=== PATIENT | female | born 1955 | race American Indian/Alaskan Native ===

== ENCOUNTER 2016-08-12 17:02 | Inpatient (IN) | payer MEDICAID, MEDICARE, OTHER ==
--- NOTE | 2016-08-12 17:29 | C.PDOC ---
History Of Present Illness 61 y/o female sent to ER by Dr. Olsen for increased SOB and wheezing. Patient reports that on 06/08, symptoms started, and that she saw Dr. Olsen 2 days later. Patient was given inhaler and prescriptions but has not improved. Patient notes chest pain is present only with cough. Otherwise, denies fever, chills, nausea, vomiting, or other associated symptoms. Time Seen by Provider: 08/12/16 17:16 Chief Complaint (Nursing): Chest Pain History Per: Patient History/Exam Limitations: no limitations Onset/Duration Of Symptoms: Days Current Symptoms Are (Timing): Still Present Associated Symptoms: denies: Dyspnea, Diaphoresis Recent travel outside of the [place]: No Past Medical History Reviewed: Historical Data, Nursing Documentation, Vital Signs Vital Signs: Last Vital Signs Temp 98.1 F 08/12/16 17:11 Pulse 104 H 08/12/16 17:11 Resp 18 08/12/16 17:11 BP 138/82 08/12/16 17:11 Pulse Ox 96 08/12/16 19:00 - Medical History PMH: Bronchitis, HTN Family History: States: Unknown Family Hx - Social History Hx Tobacco Use: No Hx Alcohol Use: Yes Hx Substance Use: No - Immunization History Hx Tetanus Toxoid Vaccination: No Hx Influenza Vaccination: No Hx Pneumococcal Vaccination: No Review Of Systems Except As Marked, All Systems Reviewed And Found Negative. Constitutional: Negative for: Fever, Chills Cardiovascular: Negative for: Chest Pain Respiratory: Positive for: Cough, Shortness of Breath, Wheezing Gastrointestinal: Negative for: Nausea, Vomiting Skin: Negative for: Rash Physical Exam - Physical Exam Appears: Non-toxic, No Acute Distress Skin: Warm, Dry Head: Atraumatic, Normacephalic Oral Mucosa: Moist Chest: Symmetrical Cardiovascular: Rhythm Regular Respiratory: No Accessory Muscle Use, No Rales, No Rhonchi, Wheezing (expiratory , bilaterally) Gastrointestinal/Abdominal: Soft, No Tenderness Back: Normal Inspection Extremity: Normal ROM, Capillary Refill (< 2 sec. ) Neurological/Psych: Oriented x3, Normal Speech, Normal Cognition ED Course And Treatment - Laboratory Results Result Diagrams: 08/12/16 17:51 08/12/16 17:51 Lab Interpretation: Normal O2 Sat by Pulse Oximetry: 96 (RA) Pulse Ox Interpretation: Normal - Radiology CXR: Read By Radiologist - Other Rad No standard instances X-Ray: Read By Radiologist Interpretation: FINDINGS: Examination limited by habitus. LUNGS: Subtle increased opacity within the medial right lower lobe may reflect pneumonia. Please note that chest x-ray has limited sensitivity for the detection of pulmonary masses. PLEURA: No significant pleural effusion identified. No definite pneumothorax . CARDIOVASCULAR: Heart size appears within normal limits. OSSEOUS STRUCTURES: Degenerative changes. VISUALIZED UPPER ABDOMEN: Unremarkable. OTHER FINDINGS: None. IMPRESSION: Subtle increased opacity within the medial right lower lobe may reflect pneumonia. Correlate clinically. Progress Note: CxR, bloodwork, urinalysis ordered. Treated with duoneb, solumedrol, and IVFs. Treated with rocephin 1 gm IV and zithromax 500 mg IV Reassessment Condition: Improved Disposition - Disposition Disposition Time: 19:00 Condition: STABLE Instructions: Upper Respiratory Infection (ED) - POA Present On Arrival: None - Clinical Impression Clinical Impression: Upper respiratory infection, Pneumonia - PA / [employer] / Resident Statement MD/DO has reviewed & agrees with the documentation as recorded. - Scribe Statement The provider has reviewed the documentation as recorded by the Scribjodee Crawley All medical record entries made by the Jayne were at my direction and personally dictated by me. I have reviewed the chart and agree that the record accurately reflects my personal performance of the history, physical exam, medical decision making, and the department course for this patient. I have also personally directed, reviewed, and agree with the discharge instructions and disposition. Physician Patient Turnover Patient Signed Over To: David Brower Handoff Comments: pending admission
[2016-08-12] MEDS ORDERED: Sodium Chloride 0.9% 1,000 ML ONE (17:38)
[2016-08-12] MEDS: Albuterol-Ipratrop 3 mg / 0.5 (3 ml) UD IH SCH ×3 (17:50→18:10)
[2016-08-12] MEDS ORDERED: Albuterol-Ipratrop 3 mg / 0.5 (3 ml) UD ONE (17:52)
[2016-08-12] MEDS: Sodium Chloride 0.9% 1,000 ML IV SCH (17:54)
[2016-08-12 17:59] LABS: BASO # 0.1 K/uL (0.0-0.2); BASO % 1.2 % (0.0-2.0); EOS # 0.3 K/uL (0.0-0.7); EOS % 2.9 % (0.0-4.0); HEMATOCRIT 34.8 % (34.0-47.0); LYMPH # 3.8 K/uL (1.0-4.3); LYMPH % 35.7 % (20.0-40.0); MEAN CELL VOLUME 86.2 fL (81.0-99.0); MEAN CORPUSCULAR HEMOGLOBIN 29.2 pg (27.0-31.0); MEAN CORPUSCULAR HGB CONC 33.9 g/dL (33.0-37.0); MEAN PLATELET VOLUME 7.3 fL (7.2-11.7); MONO # 0.9 K/uL (0.0-0.8); RED CELL DISTRIBUTION WIDTH 12.5 % (11.5-14.5); WHITE BLOOD COUNT 10.7 K/uL (4.8-10.8)
[2016-08-12 18:11] LABS: CHLORIDE 98 mmol/L (98-107); SODIUM 140 mmol/L (132-148)
[2016-08-12 18:13] LABS: AST/SGOT 20 U/L (14-36); BILIRUBIN,TOTAL 0.6 mg/dL (0.2-1.3); CARBON DIOXIDE 29 mmol/L (22-30); GFR AFRICAN-AMERICAN > 60
[2016-08-12 18:14] LABS: ALKALINE PHOSPHATASE 64 U/L (38-126); ALT/SGPT 15 U/L (9-52); BLOOD UREA NITROGEN 20 mg/dL (7-17); CALCIUM 8.9 mg/dl (8.6-10.4); GLUCOSE,RANDOM 130 mg/dL (65-105); TOTAL PROTEIN 8.4 g/dL (6.3-8.3)
[2016-08-12] MEDS ORDERED: Potassium Chloride 20 mEq/15 ml LIQ UD PO STA (18:18)
[2016-08-12 18:26] LABS: RBC URINE 20 /hpf (0-3); URINE BACTERIA FEW (<OCC); URINE BILIRUBIN NEGATIVE (NEGATIVE); URINE BLOOD NEGATIVE (NEGATIVE); URINE GLUCOSE (UA) NORMAL (Normal); URINE KETONE TRACE mg/dL (NEGATIVE); URINE LEUKOCYTE ESTERASE 2+ Leu/uL (Negative); URINE PROTEIN 1+ mg/dL (NEGATIVE); URINE UROBILINOGEN NORMAL mg/dL (0.2-1.0); WBC URINE 11 /hpf (0-5)
[2016-08-12 18:34] LABS: URINE COLOR YELLOW (YELLOW)
[2016-08-12 18:48] LABS: ABG ALLEN TEST POS; ARTERIAL BLOOD HGB O2 SAT 94.7 % (95.0-98.0); CARBOXYHEMOGLOBIN 1.3 % (0.5-1.5); DRAW SITE RRA
--- NOTE | 2016-08-12 18:54 | RAD ---
HISTORY: SOB COMPARISON: Chest x-ray performed 06/30/14 TECHNIQUE: Chest PA and lateral FINDINGS: Examination limited by habitus. LUNGS: Subtle increased opacity within the medial right lower lobe may reflect pneumonia. Please note that chest x-ray has limited sensitivity for the detection of pulmonary masses. PLEURA: No significant pleural effusion identified. No definite pneumothorax . CARDIOVASCULAR: Heart size appears within normal limits. OSSEOUS STRUCTURES: Degenerative changes. VISUALIZED UPPER ABDOMEN: Unremarkable. OTHER FINDINGS: None. IMPRESSION: Subtle increased opacity within the medial right lower lobe may reflect pneumonia. Correlate clinically.
[2016-08-12] MEDS ORDERED: cefTRIAXone IV 1 gm in Dextros 50 ML IVPB STA (18:57)
[2016-08-12] MEDS ORDERED: Azithromycin 500mg/250ML NS 250 ML IV SCH (19:00)
[2016-08-12] MEDS ORDERED: Potassium Chloride 20 mEq ER Tab PO ONE (19:38)
[2016-08-12] MEDS ORDERED: cefTRIAXone IV 1 gm in Dextros 50 ML IVPB ONE (19:39)
[2016-08-12] MEDS ORDERED: Potassium Chloride 20 mEq/15 ml LIQ UD ONE (19:41)
[2016-08-12] MEDS ORDERED: Azithromycin 500mg/250ML NS 500 MG/250 ML BAG IV ONE (20:00)
[2016-08-12] MEDS ORDERED: Azithromycin 500mg/250ML NS 500 MG/250 ML BAG IVPB ONE (20:42)
[2016-08-12] MEDS: Azithromycin 500 MG in Sodium Chloride 0.9% 250 ML IVPB SCH (22:29)
[2016-08-12] MEDS: cefTRIAXone IV 1 gm in Dextros 50 ML IVPB SCH (22:29)
[2016-08-13] MEDS: MethylPREDNISolone 40 mg Vial IVP SCH ×4 (00:07→18:41)
[2016-08-13] MEDS: Albuterol-Ipratrop 3 mg / 0.5 (3 ml) UD INH PRN ×2 (01:32→18:05)
[2016-08-13] MEDS: Sodium Chloride 0.9% 1,000 ML IV SCH ×5 (05:29→23:49)
[2016-08-13] MEDS ORDERED: MethylPREDNISolone 40 mg Vial IVP SCH (06:00)
[2016-08-13 09:14] LABS: LYMPH # 1.6 K/uL (1.0-4.3); LYMPH % 19.7 % (20.0-40.0); MEAN CELL VOLUME 86.5 fL (81.0-99.0); MEAN CORPUSCULAR HEMOGLOBIN 29.6 pg (27.0-31.0); MEAN CORPUSCULAR HGB CONC 34.2 g/dL (33.0-37.0); MEAN PLATELET VOLUME 7.4 fL (7.2-11.7); MONO # 0.1 K/uL (0.0-0.8); MONO % 1.3 % (0.0-10.0); RED CELL DISTRIBUTION WIDTH 12.4 % (11.5-14.5); WHITE BLOOD COUNT 8.1 K/uL (4.8-10.8)
[2016-08-13 09:16] LABS: CHLORIDE 102 mmol/L (98-107); POTASSIUM 3.5 mmol/L (3.6-5.2); SODIUM 139 mmol/L (132-148)
[2016-08-13 09:19] LABS: ALKALINE PHOSPHATASE 64 U/L (38-126); ALT/SGPT 15 U/L (9-52); AST/SGOT 20 U/L (14-36); BILIRUBIN,TOTAL 0.5 mg/dL (0.2-1.3); BLOOD UREA NITROGEN 17 mg/dL (7-17); CALCIUM 8.7 mg/dl (8.6-10.4); CARBON DIOXIDE 22 mmol/L (22-30); GFR AFRICAN-AMERICAN > 60; GLUCOSE,RANDOM 141 mg/dL (65-105); TOTAL PROTEIN 8.1 g/dL (6.3-8.3)
[2016-08-13] MEDS: cefTRIAXone IV 1 gm in Dextros 50 ML IVPB SCH ×2 (09:35→21:35)
[2016-08-13] MEDS: Enoxaparin 30 mg Syringe SC SCH (09:35)
--- NOTE | 2016-08-13 11:16 | CP.PCM.HP ---
History of Present Illness - History of Present Illness History of Present Illness: Patient started to cough about 1 week ago and was given Amoxicillin but her cough became worst and started to have difficulty breathing, she went to the ER and was admitted. Apparently her chest X-ray showed Pneumonia. Present on Admission - Present on Admission Any Indicators Present on Admission: No Review of Systems - Review of Systems Systems not reviewed;Unavailable: Respiratory Distress - Respiratory Respiratory: Cough, Dyspnea, Chest Congestion, Excessive Mucous Production - Reproductive: Female Reproductive:Female: Menopausal - Menstruation Menstruation: Menopausal Past Patient History - Tetanus Immunizations Tetanus Immunization: Unknown - Past Medical History & Family History Past Medical History?: No - Past Social History Smoking Status: Never Smoked Alcohol: Social Drugs: Denies Home Situation {Lives}: With Family - CARDIAC Hx Cardiac Disorders: No Hx Hypertension: Yes - PULMONARY Hx Respiratory Disorders: Yes Hx Bronchitis: Yes - NEUROLOGICAL Hx Neurological Disorder: No - HEENT Hx HEENT Problems: No - RENAL Hx Chronic Kidney Disease: No - ENDOCRINE/METABOLIC Hx Endocrine Disorders: No - HEMATOLOGICAL/ONCOLOGICAL Hx Blood Disorders: No Hx Blood Transfusions: No Hx Blood Transfusion Reaction: No - INTEGUMENTARY Hx Dermatological Problems: No - MUSCULOSKELETAL/RHEUMATOLOGICAL Hx Falls: No Hx Fractures: Yes - GASTROINTESTINAL Hx Gastrointestinal Disorders: No - GENITOURINARY/GYNECOLOGICAL Hx Genitourinary Disorders: No - PSYCHIATRIC Hx Anxiety: No Hx Substance Use: No - SURGICAL HISTORY Hx Surgeries: Yes Hx Breast Biopsy: Yes (2010) Hx Orthopedic Surgery: Yes (Rt ankle repair) Other/Comment: rt.ankle repair/rt.arm repair w/plate - ANESTHESIA Hx Anesthesia: Yes Hx Anesthesia Reactions: No Hx Malignant Hyperthermia: No Meds Allergies/Adverse Reactions: Allergies Allergy/AdvReac Type Severity Reaction Status Date / Time apple Allergy RASH Verified 08/12/16 20:55 cetirizine [From Zyrtec] Allergy RASH Verified 08/12/16 20:55 grape Allergy RASH Verified 08/12/16 20:55 grapefruit Allergy RASH Verified 08/12/16 20:55 moxifloxacin [From Avelox] Allergy RASH Verified 08/12/16 20:55 pear Allergy RASH Verified 08/12/16 20:55 Mushrooms Allergy Severe ANAPHYLAXIS Uncoded 08/12/16 20:55 pickles Allergy RASH Uncoded 08/12/16 20:55 Physical Exam - Constitutional Appears: In Acute Distress - Head Exam Head Exam: ATRAUMATIC, NORMAL INSPECTION, NORMOCEPHALIC - Eye Exam Pupil Exam: NORMAL ACCOMODATION, PERRL - ENT Exam ENT Exam: Mucous Membranes Moist - Neck Exam Neck exam: Positive for: Full Rom - Respiratory Exam Respiratory Exam: Decreased Breath Sounds, Prolonged Expiratory Phase, Rhonchi, Respiratory Distress - Cardiovascular Exam Cardiovascular Exam: REGULAR RHYTHM, +S1, +S2 - GI/Abdominal Exam GI & Abdominal Exam: Normal Bowel Sounds, Soft - Rectal Exam Rectal Exam: Deferred - Extremities Exam Extremities exam: Positive for: full ROM, normal inspection - Neurological Exam Neurological exam: Alert, CN II-XII Intact, Oriented x3, Reflexes Normal - Psychiatric Exam Psychiatric exam: Normal Affect - Skin Skin Exam: Dry, Intact, Normal Color Results - Vital Signs Recent Vital Signs: Last Vital Signs Temp 97.5 F L 08/13/16 08:00 Pulse 93 H 08/13/16 08:00 Resp 20 08/13/16 08:00 BP 171/79 H 08/13/16 08:00 Pulse Ox 98 08/13/16 08:00 - Labs Result Diagrams: 08/13/16 08:57 08/13/16 08:57 Labs: Laboratory Results - last 24 hr 08/13/16 08/13/16 08:57 08:57 WBC 8.1 RBC 3.70 L Hgb 10.9 L Hct 32.0 L MCV 86.5 MCH 29.6 MCHC 34.2 RDW 12.4 Plt Count 311 MPV 7.4 Neut % (Auto) 79.0 H Lymph % (Auto) 19.7 L [place] % (Auto) 1.3 Eos % (Auto) 0.0 Baso % (Auto) 0.0 Neut # 6.4 Lymph # 1.6 [place] # 0.1 Eos # 0.0 Baso # 0.0 Sodium 139 Potassium 3.5 L Chloride 102 Carbon Dioxide 22 Anion Gap 18 BUN 17 Creatinine 0.7 Est GFR ( Amer) > 60 Est GFR (Non-Af Amer) > 60 Random Glucose 141 H Calcium 8.7 Total Bilirubin 0.5 AST 20 ALT 15 Alkaline Phosphatase 64 Total Protein 8.1 Albumin 4.0 Globulin 4.1 H Albumin/Globulin Ratio 1.0 Assessment & Plan (1) Pneumonia Status: Acute (2) Bronchitis Status: Acute (3) Hypertension Status: Chronic - Assessment and Plan (Free Text) Plan: Plan: Continue IV Rocephin and Azithromycin. Continue Nebilizer with Duoneb. Continue IV Solumedrol. Oxygen. - Date & Time Date: 08/13/16 Time: 11:30
[2016-08-13] MEDS: Azithromycin 500 MG in Sodium Chloride 0.9% 250 ML IVPB SCH (13:33)
[2016-08-13] MEDS: Patient's Own Medication - Tablet/Capusle PO SCH (16:51)
[2016-08-13] MEDS ORDERED: Albuterol-Ipratrop 3 mg / 0.5 (3 ml) UD INH SCH (18:30)
[2016-08-14] MEDS: MethylPREDNISolone 40 mg Vial IVP SCH ×5 (00:13→23:47)
[2016-08-14] MEDS: Albuterol-Ipratrop 3 mg / 0.5 (3 ml) UD INH SCH ×6 (00:37→19:40)
[2016-08-14] MEDS: Sodium Chloride 0.9% 1,000 ML IV SCH ×4 (05:36→23:34)
[2016-08-14] MEDS: Patient's Own Medication - Tablet/Capusle PO SCH (05:38)
[2016-08-14] MEDS: Enoxaparin 30 mg Syringe SC SCH (09:36)
[2016-08-14] MEDS: cefTRIAXone IV 1 gm in Dextros 50 ML IVPB SCH ×2 (10:47→21:52)
--- NOTE | 2016-08-14 11:20 | CP.PCM.PN ---
Subjective - Date & Time of Evaluation Date of Evaluation: 08/14/16 Time of Evaluation: 11:20 - Subjective Subjective: patient is excessively cough. Nebulizer has to be given q 4 hours last night. Afebrile. On Iv Azithromycin and Rocephin. On Iv Solumedrol . Objective - Vital Signs/Intake and Output Vital Signs (last 24 hours): Temp Pulse Resp BP Pulse Ox 98.2 F 84 20 167/87 H 95 08/14/16 07:52 08/14/16 07:52 08/14/16 07:52 08/14/16 07:52 08/14/16 07:52 Intake and Output: 08/14/16 08/14/16 06:59 18:59 Intake Total 1200 1040 Balance 1200 1040 - Medications Medications: Current Medications Albuterol/Ipratropium (Duoneb 3 Mg/0.5 Mg (3 Ml) Ud) 3 ml INH RQ4 [facility] Last Admin: 08/14/16 07:47 Dose: 3 ml Enoxaparin Sodium (Lovenox) 30 mg SC DAILY [facility] Last Admin: 08/14/16 09:36 Dose: Not Given Home Med (Patient's Own Medication) 1 tab PO 0600 [facility] Last Admin: 08/14/16 05:38 Dose: 1 tab Sodium Chloride (Sodium Chloride 0.9%) 1,000 mls @ 100 mls/hr IV .Q10H [facility] Last Admin: 08/14/16 05:36 Dose: 100 mls/hr Ceftriaxone Sodium (Rocephin Iv 1 Gm Duplex) 50 mls @ 100 mls/hr IVPB Q12 [facility] Last Admin: 08/14/16 10:47 Dose: 100 mls/hr Azithromycin 500 mg/ Sodium (Chloride) 250 mls @ 250 mls/hr IVPB Q24H [facility] Methylprednisolone (Solu-Medrol) 40 mg IVP Q6 [facility] Last Admin: 08/14/16 05:33 Dose: 40 mg Pneumococcal Polyvalent Vaccine (Pneumovax 23 Vaccine) 0.5 ml IM .ONCE ONE Stop: 08/15/16 10:01 - Labs Labs: 08/13/16 08:57 08/13/16 08:57 - Constitutional Appears: In Acute Distress - Eye Exam Pupil Exam: NORMAL ACCOMODATION, PERRL - ENT Exam ENT Exam: Mucous Membranes Moist - Respiratory Exam Respiratory Exam: Decreased Breath Sounds, Rhonchi - Cardiovascular Exam Cardiovascular Exam: REGULAR RHYTHM, +S1, +S2 - GI/Abdominal Exam GI & Abdominal Exam: Soft, Normal Bowel Sounds - Rectal Exam Rectal Exam: Deferred - Extremities Exam Extremities Exam: Full ROM - Neurological Exam Neurological Exam: Alert, Awake, Oriented x3 - Psychiatric Exam Psychiatric exam: Normal Affect, Normal Mood - Skin Skin Exam: Dry, Intact, Normal Color, Warm Assessment and Plan (1) Pneumonia Status: Acute (2) Bronchitis Status: Acute (3) Hypertension Status: Chronic - Assessment and Plan (Free Text) Plan: Plan: Continue IV Rocephin and Azithromycin Continue IV solumedrol. Nebulizer with douneb q 4 hours.
[2016-08-14] MEDS: Azithromycin 500 MG in Sodium Chloride 0.9% 250 ML IVPB SCH (12:59)
--- NOTE | 2016-08-14 14:20 | RAD ---
HISTORY: Pneumonia. COMPARISON: Comparison made with prior radiographs chest 08/12/2016 TECHNIQUE: Chest PA and lateral FINDINGS: LUNGS: Suspected infiltrate right mid to lower lung lamar improved. There may be some residual bibasilar atelectasis and or scarring right greater than left. . PLEURA: No significant pleural effusion identified. No pneumothorax apparent. CARDIOVASCULAR: Heart size is upper limits of normal/ borderline enlarged. OSSEOUS STRUCTURES: No significant abnormalities. VISUALIZED UPPER ABDOMEN: Normal. OTHER FINDINGS: None. IMPRESSION: Suspected infiltrate right mid to lower lung lamar improved. There may be some residual bibasilar atelectasis or scarring right greater than left.
[2016-08-14] MEDS ORDERED: Patient's Own Medication - Tablet/Capusle PO SCH (18:00)
[2016-08-15] MEDS: Albuterol-Ipratrop 3 mg / 0.5 (3 ml) UD INH SCH ×8 (01:06→23:31)
[2016-08-15] MEDS: MethylPREDNISolone 40 mg Vial IVP SCH ×3 (06:13→17:38)
[2016-08-15] MEDS: Sodium Chloride 0.9% 1,000 ML IV SCH (06:16)
[2016-08-15] MEDS: Patient's Own Medication - Tablet/Capusle PO SCH ×2 (06:16→17:38)
[2016-08-15 07:32] LABS: CHLORIDE 99 mmol/L (98-107); POTASSIUM 3.6 mmol/L (3.6-5.2); SODIUM 137 mmol/L (132-148)
[2016-08-15 07:35] LABS: BLOOD UREA NITROGEN 17 mg/dL (7-17); CARBON DIOXIDE 27 mmol/L (22-30); GFR AFRICAN-AMERICAN > 60; GLUCOSE,RANDOM 138 mg/dL (65-105)
[2016-08-15 07:36] LABS: CALCIUM 8.5 mg/dl (8.6-10.4)
--- NOTE | 2016-08-15 07:54 | CP.PCM.PN ---
Subjective - Date & Time of Evaluation Date of Evaluation: 08/15/16 Time of Evaluation: 07:45 - Subjective Subjective: Cough slightly better. Afebrile. Sob is better.Still on IV Solu Objective - Vital Signs/Intake and Output Vital Signs (last 24 hours): Temp Pulse Resp BP Pulse Ox 98.2 F 69 20 167/82 H 94 L 08/15/16 00:00 08/15/16 06:00 08/15/16 00:00 08/15/16 06:00 08/15/16 00:00 Intake and Output: 08/15/16 08/15/16 06:59 18:59 Intake Total 1989 Balance 1989 - Medications Medications: Current Medications Albuterol/Ipratropium (Duoneb 3 Mg/0.5 Mg (3 Ml) Ud) 3 ml INH RQ4 [facility] Last Admin: 08/15/16 03:58 Dose: 3 ml Enoxaparin Sodium (Lovenox) 30 mg SC DAILY [facility] Last Admin: 08/14/16 09:36 Dose: Not Given Home Med (Patient's Own Medication) 1 tab PO Q12H [facility] Last Admin: 08/15/16 06:16 Dose: 1 tab Sodium Chloride (Sodium Chloride 0.9%) 1,000 mls @ 100 mls/hr IV .Q10H [facility] Last Admin: 08/15/16 06:16 Dose: Not Given Ceftriaxone Sodium (Rocephin Iv 1 Gm Duplex) 50 mls @ 100 mls/hr IVPB Q12 [facility] Last Admin: 08/14/16 21:52 Dose: 100 mls/hr Azithromycin 500 mg/ Sodium (Chloride) 250 mls @ 250 mls/hr IVPB Q24H [facility] Last Admin: 08/14/16 12:59 Dose: 250 mls/hr Methylprednisolone (Solu-Medrol) 40 mg IVP Q6 [facility] Last Admin: 08/15/16 06:13 Dose: 40 mg Pneumococcal Polyvalent Vaccine (Pneumovax 23 Vaccine) 0.5 ml IM .ONCE ONE Stop: 08/15/16 10:01 - Labs Labs: 08/13/16 08:57 08/15/16 07:00 - Respiratory Exam Respiratory Exam: Rhonchi, Wheezes, NORMAL BREATHING PATTERN - Cardiovascular Exam Cardiovascular Exam: REGULAR RHYTHM, +S1, +S2 Assessment and Plan (1) Pneumonia Status: Acute (2) Bronchitis Status: Acute (3) Hypertension Status: Chronic - Assessment and Plan (Free Text) Plan: Plan: Continue IV Azithromycin and Rocephin. Start decreasing IV Sokumedrol. Diovan po BID
[2016-08-15] MEDS: Enoxaparin 30 mg Syringe SC SCH (09:21)
[2016-08-15] MEDS ORDERED: Pneumococcal 23-Valent Vaccine IM ONE ×2 (10:00→11:30)
[2016-08-15] MEDS: cefTRIAXone IV 1 gm in Dextros 50 ML IVPB SCH ×2 (12:15→21:07)
[2016-08-15] MEDS: Azithromycin 500 MG in Sodium Chloride 0.9% 250 ML IVPB SCH (13:27)
[2016-08-16] MEDS: MethylPREDNISolone 40 mg Vial IVP SCH ×4 (00:23→17:52)
[2016-08-16] MEDS: Albuterol-Ipratrop 3 mg / 0.5 (3 ml) UD INH SCH ×6 (03:07→23:37)
[2016-08-16] MEDS: Patient's Own Medication - Tablet/Capusle PO SCH ×2 (05:48→17:56)
[2016-08-16] MEDS: cefTRIAXone IV 1 gm in Dextros 50 ML IVPB SCH ×2 (10:10→23:00)
[2016-08-16] MEDS: Enoxaparin 30 mg Syringe SC SCH (10:14)
[2016-08-16] MEDS: [UNRECOGNIZED DRUG - OTHER] PO SCH (10:14)
[2016-08-16] MEDS: MULTIVITAMIN PO SCH (10:14)
[2016-08-16] MEDS: Azithromycin 500 MG in Sodium Chloride 0.9% 250 ML IVPB SCH (12:03)
--- NOTE | 2016-08-16 14:06 | CP.PCM.PN ---
Subjective - Date & Time of Evaluation Date of Evaluation: 08/16/16 Time of Evaluation: 02:00 - Subjective Subjective: Patient apparently had a rough night. The nurse called earlier and told me that somebody cleaned the next bed with chlorox and started to heve a bad coughing spell again she had to be given a treatment. Since then p[atient again haveve been coughing excessively again with respiratory difficulty.again. Objective - Vital Signs/Intake and Output Vital Signs (last 24 hours): Temp Pulse Resp BP Pulse Ox 97.5 F L 100 H 20 171/73 H 97 08/16/16 08:00 08/16/16 08:00 08/16/16 08:00 08/16/16 08:00 08/16/16 08:00 Intake and Output: 08/16/16 08/16/16 06:59 18:59 Intake Total 810 Balance 810 - Medications Medications: Current Medications Albuterol/Ipratropium (Duoneb 3 Mg/0.5 Mg (3 Ml) Ud) 3 ml INH RQ4 [facility] Last Admin: 08/16/16 03:07 Dose: 3 ml Enoxaparin Sodium (Lovenox) 30 mg SC DAILY [facility] Last Admin: 08/16/16 10:14 Dose: Not Given Home Med (Patient's Own Medication) 1 tab PO Q12H [facility] Last Admin: 08/16/16 05:48 Dose: 1 tab Home Med (Patient's Own Medication) 1 tab PO DAILY [facility] Last Admin: 08/16/16 10:14 Dose: 1 tab Ceftriaxone Sodium (Rocephin Iv 1 Gm Duplex) 50 mls @ 100 mls/hr IVPB Q12 [facility] Last Admin: 08/16/16 10:10 Dose: 100 mls/hr Azithromycin 500 mg/ Sodium (Chloride) 250 mls @ 250 mls/hr IVPB Q24H [facility] Last Admin: 08/16/16 12:03 Dose: 250 mls/hr Methylprednisolone (Solu-Medrol) 20 mg IVP Q6H [facility] Last Admin: 08/16/16 12:04 Dose: 20 mg Fluticasone/Salmeterol (Advair Diskus 250/50) 1 puff INH RQ12 [facility] - Labs Labs: 08/13/16 08:57 08/15/16 07:00 - Head Exam Head Exam: ATRAUMATIC, NORMAL INSPECTION - Eye Exam Pupil Exam: NORMAL ACCOMODATION, PERRL - ENT Exam ENT Exam: Normal External Ear Exam - Neck Exam Neck Exam: Full ROM - Respiratory Exam Respiratory Exam: Decreased Breath Sounds, Rhonchi, Respiratory Distress - Cardiovascular Exam Cardiovascular Exam: REGULAR RHYTHM, +S1, +S2 - GI/Abdominal Exam GI & Abdominal Exam: Normal Bowel Sounds - Rectal Exam Rectal Exam: Deferred - Extremities Exam Extremities Exam: Normal Inspection - Back Exam Back Exam: NORMAL INSPECTION - Neurological Exam Neurological Exam: Alert, Awake, Oriented x3 - Psychiatric Exam Psychiatric exam: Anxious, Normal Affect, Normal Mood - Skin Skin Exam: Dry, Intact, Normal Color Assessment and Plan (1) Pneumonia Status: Acute (2) Bronchitis Status: Acute (3) Hypertension Status: Chronic - Assessment and Plan (Free Text) Plan: Plan: Continue IV Rocerphin and Azithromycin. Continue present dose of Solumedrol. Continue respiratory treatment. Sytart on Advair 250/50 1 puff 2x daily.
[2016-08-16] MEDS: guaiFENesin 200 mg/10 ml Syrup UD PO SCH ×3 (15:02→23:00)
[2016-08-16] MEDS: Fluticasone-Salmeterol 250-50mcg Diskus INH SCH (21:01)
[2016-08-17] MEDS: MethylPREDNISolone 40 mg Vial IVP SCH ×4 (00:25→17:38)
[2016-08-17] MEDS: Albuterol-Ipratrop 3 mg / 0.5 (3 ml) UD INH SCH ×6 (03:05→23:44)
[2016-08-17] MEDS: Patient's Own Medication - Tablet/Capusle PO SCH ×2 (05:58→17:43)
[2016-08-17] MEDS: Fluticasone-Salmeterol 250-50mcg Diskus INH SCH ×2 (10:03→19:46)
[2016-08-17] MEDS: MULTIVITAMIN PO SCH (10:07)
[2016-08-17] MEDS: [UNRECOGNIZED DRUG - OTHER] PO SCH (10:07)
[2016-08-17] MEDS: cefTRIAXone IV 1 gm in Dextros 50 ML IVPB SCH ×2 (10:07→21:48)
[2016-08-17] MEDS: guaiFENesin 200 mg/10 ml Syrup UD PO SCH ×4 (10:08→21:48)
[2016-08-17] MEDS: Enoxaparin 30 mg Syringe SC SCH (10:10)
--- NOTE | 2016-08-17 12:22 | CP.PCM.PN ---
Subjective - Date & Time of Evaluation Date of Evaluation: 08/17/16 Time of Evaluation: 12:10 - Subjective Subjective: Afebrile, but still coughing a lot . Started on Advair, yesterday. Still on IV Solumedrola Iv Rocephin, and Azithromycin. On respiratory treatment with Duoneb.Chest x-ray 2 days ago no pneumonia. Objective - Vital Signs/Intake and Output Vital Signs (last 24 hours): Temp Pulse Resp BP Pulse Ox 97.6 F 73 20 153/84 H 94 L 08/17/16 00:00 08/17/16 00:00 08/17/16 00:00 08/17/16 00:00 08/17/16 00:00 Intake and Output: 08/17/16 08/17/16 06:59 18:59 Intake Total 350 Balance 350 - Medications Medications: Current Medications Albuterol/Ipratropium (Duoneb 3 Mg/0.5 Mg (3 Ml) Ud) 3 ml INH RQ4 [facility] Last Admin: 08/17/16 11:20 Dose: 3 ml Enoxaparin Sodium (Lovenox) 30 mg SC DAILY [facility] Last Admin: 08/17/16 10:10 Dose: Not Given Guaifenesin (Robitussin) 200 mg PO QID [facility] Last Admin: 08/17/16 10:08 Dose: 200 mg Home Med (Patient's Own Medication) 1 tab PO Q12H [facility] Last Admin: 08/17/16 05:58 Dose: 1 tab Home Med (Patient's Own Medication) 1 tab PO DAILY [facility] Last Admin: 08/17/16 10:07 Dose: 1 tab Ceftriaxone Sodium (Rocephin Iv 1 Gm Duplex) 50 mls @ 100 mls/hr IVPB Q12 [facility] Last Admin: 08/17/16 10:07 Dose: 100 mls/hr Azithromycin 500 mg/ Sodium (Chloride) 250 mls @ 250 mls/hr IVPB Q24H [facility] Last Admin: 08/16/16 12:03 Dose: 250 mls/hr Methylprednisolone (Solu-Medrol) 20 mg IVP Q6H [facility] Last Admin: 08/17/16 05:50 Dose: 20 mg Fluticasone/Salmeterol (Advair Diskus 250/50) 1 puff INH RQ12 [facility] Last Admin: 08/17/16 10:03 Dose: 1 puff - Labs Labs: 08/13/16 08:57 08/15/16 07:00 - Respiratory Exam Respiratory Exam: Decreased Breath Sounds, Prolonged Expiratory Phase, Rhonchi - Cardiovascular Exam Cardiovascular Exam: REGULAR RHYTHM, +S1, +S2 - Rectal Exam Rectal Exam: Deferred - Extremities Exam Extremities Exam: Full ROM - Neurological Exam Neurological Exam: Alert, Awake, Oriented x3 - Psychiatric Exam Psychiatric exam: Normal Affect, Normal Mood - Skin Skin Exam: Dry, Intact, Normal Color, Warm Assessment and Plan (1) Pneumonia Status: Resolved (2) Bronchitis Status: Acute (3) Hypertension Status: Chronic - Assessment and Plan (Free Text) Plan: Plan: Continue IV Azithromycia, and Rocephin. Continue Nebulizer with Douneb q 4 hours. Continue IV Solumedrol. Continue Advair BID. Continue Diovan BID.
[2016-08-17] MEDS: Azithromycin 500 MG in Sodium Chloride 0.9% 250 ML IVPB SCH (13:05)
[2016-08-18] MEDS: MethylPREDNISolone 40 mg Vial IVP SCH ×5 (00:16→22:30)
[2016-08-18] MEDS: Albuterol-Ipratrop 3 mg / 0.5 (3 ml) UD INH SCH ×6 (03:10→23:50)
[2016-08-18] MEDS: Patient's Own Medication - Tablet/Capusle PO SCH ×2 (05:44→18:30)
[2016-08-18] MEDS: Enoxaparin 30 mg Syringe SC SCH (09:29)
[2016-08-18] MEDS: MULTIVITAMIN PO SCH (09:35)
[2016-08-18] MEDS: [UNRECOGNIZED DRUG - OTHER] PO SCH (09:35)
[2016-08-18] MEDS: Fluticasone-Salmeterol 250-50mcg Diskus INH SCH (10:28)
[2016-08-18] MEDS: guaiFENesin 200 mg/10 ml Syrup UD PO SCH (10:30)
--- NOTE | 2016-08-18 10:52 | CP.PCM.PN ---
Subjective - Date & Time of Evaluation Date of Evaluation: 08/18/16 Time of Evaluation: 10:50 - Subjective Subjective: patient still coughing quite a bit. Could no finish a sentence without stopping to cough. Still on iv antibiotics, solumedrol Advair and Douneb. Objective - Vital Signs/Intake and Output Vital Signs (last 24 hours): Temp Pulse Resp BP Pulse Ox 98.8 F 110 H 20 144/73 97 08/18/16 08:00 08/18/16 08:00 08/18/16 08:00 08/18/16 08:00 08/18/16 08:00 Intake and Output: 08/18/16 08/18/16 06:59 18:59 Intake Total 750 600 Balance 750 600 - Medications Medications: Current Medications Albuterol/Ipratropium (Duoneb 3 Mg/0.5 Mg (3 Ml) Ud) 3 ml INH RQ4 [facility] Last Admin: 08/18/16 07:53 Dose: 3 ml Enoxaparin Sodium (Lovenox) 30 mg SC DAILY [facility] Last Admin: 08/18/16 09:29 Dose: Not Given Guaifenesin (Robitussin) 200 mg PO QID [facility] Last Admin: 08/17/16 21:48 Dose: 200 mg Home Med (Patient's Own Medication) 1 tab PO Q12H [facility] Last Admin: 08/18/16 05:44 Dose: 1 tab Home Med (Patient's Own Medication) 1 tab PO DAILY [facility] Last Admin: 08/18/16 09:35 Dose: 1 tab Azithromycin 500 mg/ Sodium (Chloride) 250 mls @ 250 mls/hr IVPB Q24H [facility] Last Admin: 08/17/16 13:05 Dose: 250 mls/hr Methylprednisolone (Solu-Medrol) 20 mg IVP Q6H [facility] Last Admin: 08/18/16 05:45 Dose: 20 mg Fluticasone/Salmeterol (Advair Diskus 250/50) 1 puff INH RQ12 [facility] Last Admin: 08/18/16 10:28 Dose: 1 puff - Labs Labs: 08/13/16 08:57 08/15/16 07:00 - Respiratory Exam Respiratory Exam: Decreased Breath Sounds, Rhonchi - Cardiovascular Exam Cardiovascular Exam: REGULAR RHYTHM, +S1, +S2 - GI/Abdominal Exam GI & Abdominal Exam: Soft - Rectal Exam Rectal Exam: Deferred - Back Exam Back Exam: NORMAL INSPECTION - Neurological Exam Neurological Exam: Alert, Awake, Oriented x3 - Psychiatric Exam Psychiatric exam: Normal Affect, Normal Mood - Skin Skin Exam: Dry, Intact, Normal Color, Warm Assessment and Plan (1) Pneumonia Status: Resolved (2) Bronchitis Status: Acute (3) Hypertension Status: Chronic - Assessment and Plan (Free Text) Plan: Plan: To continue IV Rocephin, and Azithromycin Continue IV Solumedrol. Continue nebulizewr with Douneb and Advair. Dr. Ramandeep Funez on consult.
[2016-08-18] MEDS ORDERED: Promethazine DM 6.25 mg-15 mg/5 ml Syrup PO SCH (11:15)
[2016-08-18] MEDS: Promethazine/Cod 6.25mg-10mg/5ml Syr UD PO SCH ×3 (12:02→22:30)
[2016-08-18] MEDS: Azithromycin 500 MG in Sodium Chloride 0.9% 250 ML IVPB SCH (12:06)
--- NOTE | 2016-08-18 14:57 | RAD ---
PROCEDURE: Skull series dated 08/17/2016 HISTORY: patient states she bumped her head prior to admiss COMPARISON: No prior study available for comparison TECHNIQUE: Four views of the skull performed FINDINGS: Current study reveals no evidence of acute displaced or depressed skull fractures. If symptoms persist or occult fracture or parenchymal brain injury suspected clinically recommend followup CT scan of the brain which very sensitive for assessing skull fractures and brain injury. . The paranasal and mastoid air complexes appear well-developed and well-aerated. IMPRESSION: No fracture seen. Followup CT scan could be performed if further evaluation is required as detailed above
--- NOTE | 2016-08-18 16:10 | CP.PCM.CON ---
History of Present Illness - History of Present Illness History of Present Illness: Reason for consultation cough and shortness of breath: 61-year-old female with no significant past medical history presented to emergency room complaining of cough for the past 1 week. Cough mostly dry and sometimes productive BROWNISH phlegm. Cough also associated with wheezing and shortness of breath. Patient was initially treated as outpatient with amoxicillin without relief. Initial chest x-ray done in the emergency room consistent with pneumonia and was started on IV antibiotics, steroids and antitussives without any relief. Cough is producing the day and at night and is associated with chest discomfort. Denies heartburn or indigestion. Denies nasal congestion or postnasal drip. Review of Systems - Review of Systems All systems: reviewed and no additional remarkable complaints except (Shortness of breath and cough) Past Patient History - Tetanus Immunizations Tetanus Immunization: Unknown - Past Medical History & Family History Past Medical History?: No - Past Social History Smoking Status: Never Smoked Alcohol: Social Drugs: Denies Home Situation {Lives}: With Family - CARDIAC Hx Cardiac Disorders: No Hx Hypertension: Yes - PULMONARY Hx Respiratory Disorders: Yes Hx Bronchitis: Yes - NEUROLOGICAL Hx Neurological Disorder: No - HEENT Hx HEENT Problems: No - RENAL Hx Chronic Kidney Disease: No - ENDOCRINE/METABOLIC Hx Endocrine Disorders: No - HEMATOLOGICAL/ONCOLOGICAL Hx Blood Disorders: No Hx Blood Transfusions: No Hx Blood Transfusion Reaction: No - INTEGUMENTARY Hx Dermatological Problems: No - MUSCULOSKELETAL/RHEUMATOLOGICAL Hx Falls: No Hx Fractures: Yes - GASTROINTESTINAL Hx Gastrointestinal Disorders: No - GENITOURINARY/GYNECOLOGICAL Hx Genitourinary Disorders: No - PSYCHIATRIC Hx Anxiety: No Hx Substance Use: No - SURGICAL HISTORY Hx Surgeries: Yes Hx Breast Biopsy: Yes (2010) Hx Orthopedic Surgery: Yes (Rt ankle repair) Other/Comment: rt.ankle repair/rt.arm repair w/plate - ANESTHESIA Hx Anesthesia: Yes Hx Anesthesia Reactions: No Hx Malignant Hyperthermia: No Meds Allergies/Adverse Reactions: Allergies Allergy/AdvReac Type Severity Reaction Status Date / Time apple Allergy RASH Verified 08/12/16 20:55 cetirizine [From Zyrtec] Allergy RASH Verified 08/12/16 20:55 grape Allergy RASH Verified 08/12/16 20:55 grapefruit Allergy RASH Verified 08/12/16 20:55 moxifloxacin [From Avelox] Allergy RASH Verified 08/12/16 20:55 pear Allergy RASH Verified 08/12/16 20:55 Mushrooms Allergy Severe ANAPHYLAXIS Uncoded 08/12/16 20:55 pickles Allergy RASH Uncoded 08/12/16 20:55 - Medications Medications: Current Medications Albuterol/Ipratropium (Duoneb 3 Mg/0.5 Mg (3 Ml) Ud) 3 ml INH RQ4 [facility] Last Admin: 08/18/16 15:52 Dose: 3 ml Budesonide (Pulmicort Respules) 0.5 mg INH RQ12 [facility] Enoxaparin Sodium (Lovenox) 30 mg SC DAILY [facility] Last Admin: 08/18/16 09:29 Dose: Not Given Home Med (Patient's Own Medication) 1 tab PO Q12H [facility] Last Admin: 08/18/16 05:44 Dose: 1 tab Home Med (Patient's Own Medication) 1 tab PO DAILY [facility] Last Admin: 08/18/16 09:35 Dose: 1 tab Azithromycin 500 mg/ Sodium (Chloride) 250 mls @ 250 mls/hr IVPB Q24H [facility] Last Admin: 08/18/16 12:06 Dose: 250 mls/hr Methylprednisolone (Solu-Medrol) 40 mg IVP Q6H [facility] Last Admin: 08/18/16 12:03 Dose: 40 mg Promethazine HCl/Codeine (Phenergan/Codeine Oral Syrup) 5 ml PO Q6H [facility] Last Admin: 08/18/16 12:02 Dose: 5 ml Physical Exam - Head Exam Head Exam: ATRAUMATIC, NORMOCEPHALIC - Eye Exam Eye Exam: Normal appearance - ENT Exam ENT Exam: Mucous Membranes Moist - Neck Exam Neck exam: Positive for: Normal Inspection - Respiratory Exam Respiratory Exam: Rhonchi, Wheezes - Cardiovascular Exam Cardiovascular Exam: REGULAR RHYTHM - GI/Abdominal Exam GI & Abdominal Exam: Normal Bowel Sounds, Soft - Extremities Exam Extremities exam: Positive for: normal inspection - Neurological Exam Neurological exam: Alert, Oriented x3 Results - Vital Signs Recent Vital Signs: Last Vital Signs Temp 98.8 F 08/18/16 08:00 Pulse 110 H 08/18/16 08:00 Resp 20 08/18/16 08:00 BP 144/73 08/18/16 08:00 Pulse Ox 97 08/18/16 08:00 - Labs Result Diagrams: 08/13/16 08:57 08/15/16 07:00 Assessment & Plan (1) Cough Status: Acute Comment: 61-year-old female admitted with cough and shortness of breath. Most likely secondary to bronchitis but rule out upper airway cough syndrome. Continue azithromycin and IV steroids. Start gabapentin. Continue antitussive. CAT scan of the chest
--- NOTE | 2016-08-18 16:13 | CT ---
PROCEDURE: CT chest dated 08/18/2016. HISTORY: persistent cough COMPARISON: Comparison made with chest radiograph 08/14/2016. TECHNIQUE: Contiguous axial images were obtained through the chest without intravenous contrast enhancement. Sagittal and coronal reconstructions were performed. Radiation dose (DLP): 414.62 mGy-cm. This CT exam was performed using one or more of the following dose reduction techniques: Automated exposure control, adjustment of the mA and/or kV according to patient size, and/or use of iterative reconstruction technique. FINDINGS: LUNGS: Current study reveals an area of mild atelectasis in the base with the tiny right-sided effusion. Associated mild bronchial wall thickening as well suggesting underlying mild the sequela of reactive/ inflammatory airways disease. . There is also presumed area of discrete atelectasis in the left medial lung base associated with a tiny left-sided effusion. Minor linear type scarring changes felt be present within the middle lobe and lingular regions as well as left posterior lower lung lamar. . No obvious large parenchymal nodules or masses. MEDIASTINUM: Evaluation of the mediastinum demonstrates normal-sized heart. Small pericardial effusion. The ascending thoracic aorta measures approximately 3.2 cm and descending thoracic aorta measures approximately 2.47 cm. Pulmonary trunk measures approximately 2.5 cm. . Central airways are midline and patent. No intraluminal lesions seen. No significant mediastinal adenopathy. Evaluation for hilar adenopathy limited due to the lack of circulating intravenous contrast material. Enlarged right lobe thyroid gland with a discrete what appears represent either bilobed or 2 adjacent the smaller low-attenuation foci posterior aspect right lobe thyroid measuring approximately 13.7 x 10.7 mm in greatest dimension. Thyroid ultrasound recommended. PLEURA: As above. No evidence of pneumothorax BONES: Mild multilevel degenerative spondylosis of the thoracic spine most notably affecting the david lower disc space levels. UPPER ABDOMEN: Gallbladder appears contracted and contains multiple calculi. OTHER FINDINGS: None. IMPRESSION: Small pericardial effusion. Mild subsegmental atelectasis of both lung bases with small right effusion and tiny left effusion. There are also areas of linear/curvilinear scarring changes in the middle lobe and lingular regions as left posterior lower lung field. . There appears to be some mild bronchial wall thickening seen the right lower lobe suggesting reactive -inflammatory airway disease. Cholelithiasis. Thyroid nodule and or nodules as above. Thyroid ultrasound recommended.
[2016-08-18] MEDS: Budesonide 0.5 mg/2 ml Inhal Susp UD INH SCH (20:41)
[2016-08-19] MEDS: Albuterol-Ipratrop 3 mg / 0.5 (3 ml) UD INH SCH ×6 (03:39→23:36)
[2016-08-19] MEDS: MethylPREDNISolone 40 mg Vial IVP SCH ×4 (05:35→23:10)
[2016-08-19] MEDS: Promethazine/Cod 6.25mg-10mg/5ml Syr UD PO SCH ×4 (05:47→23:49)
[2016-08-19] MEDS: Patient's Own Medication - Tablet/Capusle PO SCH ×3 (05:54→18:15)
[2016-08-19] MEDS: Budesonide 0.5 mg/2 ml Inhal Susp UD INH SCH ×2 (07:54→20:48)
[2016-08-19] MEDS: Enoxaparin 30 mg Syringe SC SCH (09:52)
[2016-08-19] MEDS: [UNRECOGNIZED DRUG - OTHER] PO SCH (10:17)
[2016-08-19] MEDS: MULTIVITAMIN PO SCH (10:17)
--- NOTE | 2016-08-19 10:50 | CP.PCM.PN ---
Subjective - Date & Time of Evaluation Date of Evaluation: 08/19/16 Time of Evaluation: 10:40 - Subjective Subjective: Afebrile. Still coughing quite a bit. Sputum culture preliminary report gram negative rods, with Id and sensitivity pending. Cat scan of the chest shows inflammatory changes in the brochial trees suggestive of bronchitis, and mild subsegmental atelctasis in the middlle lobe and left posterior lower lung . Incidental findings of nodules at the right lobe of the thyroid gland. Objective - Vital Signs/Intake and Output Vital Signs (last 24 hours): Temp Pulse Resp BP Pulse Ox 98.3 F 84 20 146/80 94 L 08/19/16 00:00 08/19/16 00:00 08/19/16 00:00 08/19/16 00:00 08/19/16 00:00 Intake and Output: 08/19/16 08/19/16 06:59 18:59 Intake Total 490 Balance 490 - Medications Medications: Current Medications Albuterol/Ipratropium (Duoneb 3 Mg/0.5 Mg (3 Ml) Ud) 3 ml INH RQ4 [facility] Last Admin: 08/19/16 07:54 Dose: 3 ml Budesonide (Pulmicort Respules) 0.5 mg INH RQ12 [facility] Last Admin: 08/19/16 07:54 Dose: 0.5 mg Enoxaparin Sodium (Lovenox) 30 mg SC DAILY [facility] Last Admin: 08/19/16 09:52 Dose: Not Given Gabapentin (Neurontin) 100 mg PO TID [facility] Last Admin: 08/19/16 10:17 Dose: 100 mg Home Med (Patient's Own Medication) 1 tab PO Q12H [facility] Last Admin: 08/19/16 05:54 Dose: 1 tab Home Med (Patient's Own Medication) 1 tab PO DAILY [facility] Last Admin: 08/19/16 10:17 Dose: 1 tab Azithromycin 500 mg/ Sodium (Chloride) 250 mls @ 250 mls/hr IVPB Q24H [facility] Last Admin: 08/18/16 12:06 Dose: 250 mls/hr Methylprednisolone (Solu-Medrol) 40 mg IVP Q6H [facility] Last Admin: 08/19/16 10:18 Dose: 40 mg Promethazine HCl/Codeine (Phenergan/Codeine Oral Syrup) 5 ml PO Q6H [facility] Last Admin: 08/19/16 05:47 Dose: 5 ml - Labs Labs: 08/13/16 08:57 08/15/16 07:00 - Constitutional Appears: Non-toxic - Head Exam Head Exam: ATRAUMATIC, NORMAL INSPECTION, NORMOCEPHALIC - Eye Exam Pupil Exam: PERRL - ENT Exam ENT Exam: Mucous Membranes Moist - Respiratory Exam Respiratory Exam: Decreased Breath Sounds, Rhonchi - Cardiovascular Exam Cardiovascular Exam: REGULAR RHYTHM, +S1, +S2 - GI/Abdominal Exam GI & Abdominal Exam: Soft - Rectal Exam Rectal Exam: Deferred - Extremities Exam Extremities Exam: Full ROM, Normal Inspection - Back Exam Back Exam: Full ROM - Neurological Exam Neurological Exam: Alert, Awake, CN II-XII Intact, Oriented x3 - Psychiatric Exam Psychiatric exam: Normal Affect, Normal Mood - Skin Skin Exam: Dry, Intact, Normal Color, Warm Assessment and Plan (1) Pneumonia Status: Resolved (2) Bronchitis Status: Acute (3) Hypertension Status: Chronic (4) Cholelithiasis Status: Chronic (5) Thyroid nodule Status: Chronic - Assessment and Plan (Free Text) Plan: Plan: Continue IV solumedrol, Azithromycin , and Rocephin. Continue respiratory treatments with Douneb , Butesonide respules q 12 hours.
--- NOTE | 2016-08-19 12:56 | US ---
HISTORY: thyroid nodules at right lobe TECHNIQUE: Grayscale imaging was performed. COMPARISON: None FINDINGS: RIGHT LOBE: Measures 4.0 x 1.3 x 1.6 cm. Normal echotexture and flow. Nodules: There is a 10 x 14 x 10 mm hypoechoic nodule with mild central and peripheral vascularity in the interpolar region. LEFT LOBE: Measures 4.1 x 1.0 x 1.1 cm. Normal echotexture and flow. Nodules: There is a 4 mm nodule in the upper pole and a 4 mm nodule in the interpolar region. ISTHMUS: Measures cm. Normal echotexture and flow. Nodules: None OTHER FINDINGS: None . IMPRESSION: 1. 10 mm solid nodule with mild central and peripheral vascularity in the right interpolar region. 2. Two subcentimeter nodules in the left lobe.
[2016-08-19] MEDS: Azithromycin 500 MG in Sodium Chloride 0.9% 250 ML IVPB SCH (13:11)
--- NOTE | 2016-08-19 15:59 | CP.PCM.PN ---
Subjective - Date & Time of Evaluation Date of Evaluation: 08/19/16 Time of Evaluation: 10:55 - Subjective Subjective: Patient seen and examined. Patient states cough is slightly better Denies fever or chills Chest hurts on coughing Objective - Vital Signs/Intake and Output Vital Signs (last 24 hours): Temp Pulse Resp BP Pulse Ox 98.2 F 106 H 20 159/87 H 96 08/19/16 15:00 08/19/16 15:00 08/19/16 15:00 08/19/16 15:00 08/19/16 15:00 Intake and Output: 08/19/16 08/19/16 06:59 18:59 Intake Total 490 490 Balance 490 490 - Medications Medications: Current Medications Albuterol/Ipratropium (Duoneb 3 Mg/0.5 Mg (3 Ml) Ud) 3 ml INH RQ4 [facility] Last Admin: 08/19/16 12:36 Dose: 3 ml Budesonide (Pulmicort Respules) 0.5 mg INH RQ12 [facility] Last Admin: 08/19/16 07:54 Dose: 0.5 mg Enoxaparin Sodium (Lovenox) 30 mg SC DAILY [facility] Last Admin: 08/19/16 09:52 Dose: Not Given Gabapentin (Neurontin) 100 mg PO TID [facility] Last Admin: 08/19/16 13:11 Dose: 100 mg Home Med (Patient's Own Medication) 1 tab PO Q12H [facility] Last Admin: 08/19/16 05:54 Dose: 1 tab Home Med (Patient's Own Medication) 1 tab PO DAILY [facility] Last Admin: 08/19/16 10:17 Dose: 1 tab Azithromycin 500 mg/ Sodium (Chloride) 250 mls @ 250 mls/hr IVPB Q24H [facility] Last Admin: 08/19/16 13:11 Dose: 250 mls/hr Methylprednisolone (Solu-Medrol) 40 mg IVP Q6H [facility] Last Admin: 08/19/16 10:18 Dose: 40 mg Promethazine HCl/Codeine (Phenergan/Codeine Oral Syrup) 5 ml PO Q6H [facility] Last Admin: 08/19/16 11:21 Dose: 5 ml - Labs Labs: 08/13/16 08:57 08/15/16 07:00 - Constitutional Appears: No Acute Distress - Head Exam Head Exam: ATRAUMATIC, NORMOCEPHALIC - Eye Exam Eye Exam: EOMI, PERRL - ENT Exam ENT Exam: Mucous Membranes Moist - Neck Exam Neck Exam: Normal Inspection - Respiratory Exam Respiratory Exam: Rhonchi - Cardiovascular Exam Cardiovascular Exam: REGULAR RHYTHM - GI/Abdominal Exam GI & Abdominal Exam: Soft, Normal Bowel Sounds - Extremities Exam Extremities Exam: Normal Inspection - Neurological Exam Neurological Exam: Alert, Oriented x3 Assessment and Plan (1) Cough Assessment & Plan: CAT scan of the chest reviewed with atelectasis and small pleural effusion and possible reactive airway disease Continue IV steroids, antitussive and gabapentin Status: Acute
[2016-08-19] MEDS ORDERED: MethylPREDNISolone 40 mg Vial IV STA (17:39)
[2016-08-19] MEDS ORDERED: DiphenhydrAMINE 50 mg/ml Inj IVP STA (17:48)
--- NOTE | 2016-08-20 01:26 | CARD ---
APPROVED REPORT EKG Measurement Heart [id number] <Conclusion> Sinus tachycardia Possible Left atrial enlargement Borderline ECG
[2016-08-20] MEDS: Albuterol-Ipratrop 3 mg / 0.5 (3 ml) UD INH SCH ×5 (03:58→20:52)
[2016-08-20] MEDS: Promethazine/Cod 6.25mg-10mg/5ml Syr UD PO SCH ×4 (05:11→23:07)
[2016-08-20] MEDS: MethylPREDNISolone 40 mg Vial IVP SCH ×4 (05:11→23:06)
[2016-08-20] MEDS: Patient's Own Medication - Tablet/Capusle PO SCH ×2 (05:29→18:08)
[2016-08-20] MEDS: Budesonide 0.5 mg/2 ml Inhal Susp UD INH SCH ×2 (08:04→20:52)
[2016-08-20] MEDS: MULTIVITAMIN PO SCH (10:13)
[2016-08-20] MEDS: [UNRECOGNIZED DRUG - OTHER] PO SCH (10:13)
--- NOTE | 2016-08-20 11:36 | CP.PCM.PN ---
Subjective - Date & Time of Evaluation Date of Evaluation: 08/20/16 Time of Evaluation: 11:35 - Subjective Subjective: Still coughng. Patient is hoarse today. Sputum culture is positive ofr E Coli. RSBL +. Patient was given mushroom yesterday and patient is allergic to mushroom. She was fiven Benadryl and increased th solumedrol to 60 mgm for one dose. No forther reaction to the mushroom. Objective - Vital Signs/Intake and Output Vital Signs (last 24 hours): Temp Pulse Resp BP Pulse Ox 98.5 F 106 H 20 142/76 92 L 08/20/16 08:48 08/20/16 08:48 08/20/16 08:48 08/20/16 08:48 08/20/16 08:48 - Medications Medications: Current Medications Albuterol/Ipratropium (Duoneb 3 Mg/0.5 Mg (3 Ml) Ud) 3 ml INH RQ4 [facility] Last Admin: 08/20/16 08:04 Dose: 3 ml Budesonide (Pulmicort Respules) 0.5 mg INH RQ12 [facility] Last Admin: 08/20/16 08:04 Dose: 0.5 mg Enoxaparin Sodium (Lovenox) 30 mg SC DAILY [facility] Last Admin: 08/19/16 09:52 Dose: Not Given Gabapentin (Neurontin) 100 mg PO TID [facility] Last Admin: 08/20/16 10:12 Dose: 100 mg Home Med (Patient's Own Medication) 1 tab PO Q12H [facility] Last Admin: 08/20/16 05:29 Dose: 1 tab Home Med (Patient's Own Medication) 1 tab PO DAILY [facility] Last Admin: 08/20/16 10:13 Dose: 1 tab Cefepime HCl 1 gm/ Dextrose 50 mls @ 100 mls/hr IVPB Q12H [facility] Methylprednisolone (Solu-Medrol) 40 mg IVP Q6H [facility] Last Admin: 08/20/16 10:13 Dose: 40 mg Promethazine HCl/Codeine (Phenergan/Codeine Oral Syrup) 5 ml PO Q6H [facility] Last Admin: 08/20/16 05:11 Dose: 5 ml - Labs Labs: 08/13/16 08:57 08/15/16 07:00 - Constitutional Appears: Well - Head Exam Head Exam: ATRAUMATIC - Eye Exam Pupil Exam: PERRL - ENT Exam ENT Exam: Mucous Membranes Moist - Respiratory Exam Respiratory Exam: Decreased Breath Sounds, Rhonchi - Cardiovascular Exam Cardiovascular Exam: +S1, +S2 - GI/Abdominal Exam GI & Abdominal Exam: Soft - Rectal Exam Rectal Exam: Deferred - Extremities Exam Extremities Exam: Full ROM - Back Exam Back Exam: NORMAL INSPECTION - Neurological Exam Neurological Exam: Alert, Awake, Oriented x3 - Psychiatric Exam Psychiatric exam: Normal Affect, Normal Mood - Skin Skin Exam: Dry, Intact, Normal Color, Warm Assessment and Plan (1) Pneumonia Status: Resolved (2) Bronchitis Status: Acute (3) Hypertension Status: Chronic (4) Cholelithiasis Status: Chronic (5) Thyroid nodule Status: Chronic (6) Sputum culture positive for ESBL E. coli Status: Acute - Assessment and Plan (Free Text) Plan: Plan: ID consult with DR. Rebel Day Will start with Primaxin and Tygasil. Continue respiratory treatments
[2016-08-20] MEDS: Enoxaparin 30 mg Syringe SC SCH (11:59)
--- NOTE | 2016-08-20 12:04 | CP.PCM.CON ---
History of Present Illness - History of Present Illness History of Present Illness: INFECTIOUS DISEASE CONSULTATION; HPI; 61-year-old female with history of hypertension, bronchitis was admitted on 08/12 by emergency room complaining of cough for the past one week prior to admission. Cough was associated with wheezing and shortness of breath. Patient occasionally produce brownish phlegm but denies any hemoptysis or hematemesis. Patient was initially treated as outpatient with by mouth amoxicillin by her private M.D. but without relief. Initial chest x-ray done on 08/12/16 showed increasing opacity right lower lobe consistent with pneumonia. Patient was placed on IV cefepime and IV Solu- Medrol. Patient was also complaining of chest discomfort on coughing but denied any nasal congestion or postnasal drip. Patient also denied any indigestion or heartburn or history of reflux. Repeat chest x-ray on 08/14/16 showed infiltrate right middle lobe and right lower lobe with residual atelectasis bibasilar and or scarring right more than left. Infectious disease consultation requested by PMD as sputum came back positive for Escherichia coli ESBL positive. PATIENT ALSO REPORTS THAT SHE WAS FEELING BETTER BUT THAT YESTERDAY SHE WAS SERVED WITH MUSHROOM,WITH HER LUNCH AND SHE IMMEDIATELY FELT A CHOKING SENSATION AND WHEEZING. SHE FELT WORSE AFTER THAT AND PRESENTLY STILL WHEEZING. PATIENT DENIES ANY HEADACHE, ANY RASH, ANY PALPITATIONS OR CHEST PAIN. PATIENT HAD A CT CHEST 08/18/16 WHICH SHOWED ENLARGED RIGHT LOBE THYROID WITH THYROID NODULES. MILD BRONCHIAL WALL THICKENING RIGHT LOWER LOBE SUGGESTIVE OF REACTIVE INFLAMMATORY AIRWAYS. CHOLELITHIASIS/AND SMALL PERICARDIAL EFFUSION. ALLERGIES; MOXIFLOXACIN, CETIRIZINE, APPLE GRAPEFRUIT, PEAR, MUSHROOMS ETC PMH: Bronchitis, HTN Family History: States: Unknown Family Hx - Social History Hx Tobacco Use: No Hx Alcohol Use: Yes Hx Substance Use: No - Immunization History Hx Tetanus Toxoid Vaccination: No Hx Influenza Vaccination: No Hx Pneumococcal Vaccination: No Review of Systems - Constitutional Constitutional: absent: Chills, Fever - EENT Eyes: absent: Change in Vision Nose/Mouth/Throat: absent: Nasal Congestion, Post Nasal Drip, Dysphagia, Mouth Lesions, Odynophagia, Sore Throat, Tongue Swelling - Cardiovascular Cardiovascular: Dyspnea on Exertion. absent: Chest Pain (ONLY ON COUGHING) - Respiratory Respiratory: Cough, Change in Mucous Color, Pain with Coughing - Gastrointestinal Gastrointestinal: absent: Abdominal Pain, Constipation, Diarrhea, Nausea, Vomiting - Genitourinary Genitourinary: absent: Dysuria, Freq UTI - Integumentary Integumentary: absent: Rash - Hematologic/Lymphatic Hematologic: As Per HPI. absent: Easy Bruising, Lymphadenopathy Past Patient History - Tetanus Immunizations Tetanus Immunization: Unknown - Past Medical History & Family History Past Medical History?: No - Past Social History Smoking Status: Never Smoked Alcohol: Social Drugs: Denies Home Situation {Lives}: With Family - CARDIAC Hx Cardiac Disorders: No Hx Hypertension: Yes - PULMONARY Hx Respiratory Disorders: Yes Hx Bronchitis: Yes - NEUROLOGICAL Hx Neurological Disorder: No - HEENT Hx HEENT Problems: No - RENAL Hx Chronic Kidney Disease: No - ENDOCRINE/METABOLIC Hx Endocrine Disorders: No - HEMATOLOGICAL/ONCOLOGICAL Hx Blood Disorders: No Hx Blood Transfusions: No Hx Blood Transfusion Reaction: No - INTEGUMENTARY Hx Dermatological Problems: No - MUSCULOSKELETAL/RHEUMATOLOGICAL Hx Falls: No Hx Fractures: Yes - GASTROINTESTINAL Hx Gastrointestinal Disorders: No - GENITOURINARY/GYNECOLOGICAL Hx Genitourinary Disorders: No - PSYCHIATRIC Hx Anxiety: No Hx Substance Use: No - SURGICAL HISTORY Hx Surgeries: Yes Hx Breast Biopsy: Yes (2010) Hx Orthopedic Surgery: Yes (Rt ankle repair) Other/Comment: rt.ankle repair/rt.arm repair w/plate - ANESTHESIA Hx Anesthesia: Yes Hx Anesthesia Reactions: No Hx Malignant Hyperthermia: No Meds Allergies/Adverse Reactions: Allergies Allergy/AdvReac Type Severity Reaction Status Date / Time apple Allergy RASH Verified 08/12/16 20:55 cetirizine [From Zyrtec] Allergy RASH Verified 08/12/16 20:55 grape Allergy RASH Verified 08/12/16 20:55 grapefruit Allergy RASH Verified 08/12/16 20:55 moxifloxacin [From Avelox] Allergy RASH Verified 08/12/16 20:55 pear Allergy RASH Verified 08/12/16 20:55 Mushrooms Allergy Severe ANAPHYLAXIS Uncoded 08/12/16 20:55 pickles Allergy RASH Uncoded 08/12/16 20:55 - Medications Medications: Current Medications Albuterol/Ipratropium (Duoneb 3 Mg/0.5 Mg (3 Ml) Ud) 3 ml INH RQ4 [facility] Last Admin: 08/20/16 08:04 Dose: 3 ml Budesonide (Pulmicort Respules) 0.5 mg INH RQ12 [facility] Last Admin: 08/20/16 08:04 Dose: 0.5 mg Enoxaparin Sodium (Lovenox) 30 mg SC DAILY [facility] Last Admin: 08/20/16 11:59 Dose: Not Given Gabapentin (Neurontin) 100 mg PO TID [facility] Last Admin: 08/20/16 10:12 Dose: 100 mg Home Med (Patient's Own Medication) 1 tab PO Q12H [facility] Last Admin: 08/20/16 05:29 Dose: 1 tab Home Med (Patient's Own Medication) 1 tab PO DAILY [facility] Last Admin: 08/20/16 10:13 Dose: 1 tab Cefepime HCl 1 gm/ Dextrose 50 mls @ 100 mls/hr IVPB Q12H [facility] Methylprednisolone (Solu-Medrol) 40 mg IVP Q6H [facility] Last Admin: 08/20/16 10:13 Dose: 40 mg Promethazine HCl/Codeine (Phenergan/Codeine Oral Syrup) 5 ml PO Q6H [facility] Last Admin: 08/20/16 05:11 Dose: 5 ml Physical Exam - Constitutional Appears: No Acute Distress - Head Exam Head Exam: NORMAL INSPECTION - Eye Exam Eye Exam: EOMI, PERRL - ENT Exam ENT Exam: Normal Oropharynx - Neck Exam Neck exam: Positive for: Normal Inspection - Respiratory Exam Respiratory Exam: Prolonged Expiratory Phase, Wheezes - Cardiovascular Exam Cardiovascular Exam: REGULAR RHYTHM, +S1, +S2 - GI/Abdominal Exam GI & Abdominal Exam: Normal Bowel Sounds, Soft. absent: Organomegaly - Extremities Exam Extremities exam: Positive for: normal capillary refill, pedal pulses present. Negative for: calf tenderness, pedal edema - Neurological Exam Neurological exam: Alert, CN II-XII Intact, Oriented x3, Reflexes Normal - Skin Skin Exam: Normal Color, Warm Results - Vital Signs Recent Vital Signs: Last Vital Signs Temp 98.5 F 08/20/16 08:48 Pulse 106 H 08/20/16 08:48 Resp 20 08/20/16 08:48 BP 142/76 08/20/16 08:48 Pulse Ox 92 L 08/20/16 08:48 - Labs Result Diagrams: 08/13/16 08:57 08/15/16 07:00 Assessment & Plan (1) Pneumonia Status: Resolved (2) Sputum culture positive for ESBL E. coli Status: Acute (3) Cough Status: Acute (4) Hypertension Status: Chronic (5) Thyroid nodule Status: Chronic - Assessment and Plan (Free Text) Plan: PLAN; PANCULTURES ESR,CRP MRSA SCREEN PERTUSSIS ANTIBODY. ATYPICAL TITERS START iv TYGACIL 100 MG LOADING DOSE,.08/20/16 F/U TYGACIL 50 MG EVERY 12 HOURLY. ADD ZITHROMAX 500 MG ONCE A DAY DAILY 08/20/16 CONTINUE iv SOLU-mEDROL 40 MG EVERY 8 HOURLY PER PULMONARY 08/18 DC IV CEFEPIME. PATIENT FOR ULTRASOUND THYROID TO RULE OUT RETROSTERNAL THYROID OR MULTINODULAR THYROID. PULMONARY TOILET. WILL FOLLOW PATIENT ALONG WITH YOU WHILE IN HOSPITAL.
--- NOTE | 2016-08-20 12:21 | CP.PCM.PN ---
Subjective - Date & Time of Evaluation Date of Evaluation: 08/20/16 Time of Evaluation: 08:00 - Subjective Subjective: patient seen and examined Still complaining of cough and shortness of breath Patient states that she developed reaction after eating mushroom Sputum positive for Escherichia coli ESBL Objective - Vital Signs/Intake and Output Vital Signs (last 24 hours): Temp Pulse Resp BP Pulse Ox 98.5 F 106 H 20 142/76 92 L 08/20/16 08:48 08/20/16 08:48 08/20/16 08:48 08/20/16 08:48 08/20/16 08:48 - Medications Medications: Current Medications Albuterol/Ipratropium (Duoneb 3 Mg/0.5 Mg (3 Ml) Ud) 3 ml INH RQ4 [facility] Last Admin: 08/20/16 12:06 Dose: 3 ml Budesonide (Pulmicort Respules) 0.5 mg INH RQ12 [facility] Last Admin: 08/20/16 08:04 Dose: 0.5 mg Enoxaparin Sodium (Lovenox) 30 mg SC DAILY [facility] Last Admin: 08/20/16 11:59 Dose: Not Given Gabapentin (Neurontin) 100 mg PO TID [facility] Last Admin: 08/20/16 10:12 Dose: 100 mg Home Med (Patient's Own Medication) 1 tab PO Q12H [facility] Last Admin: 08/20/16 05:29 Dose: 1 tab Home Med (Patient's Own Medication) 1 tab PO DAILY [facility] Last Admin: 08/20/16 10:13 Dose: 1 tab Cefepime HCl 1 gm/ Dextrose 50 mls @ 100 mls/hr IVPB Q12H [facility] Methylprednisolone (Solu-Medrol) 40 mg IVP Q6H [facility] Last Admin: 08/20/16 10:13 Dose: 40 mg Promethazine HCl/Codeine (Phenergan/Codeine Oral Syrup) 5 ml PO Q6H [facility] Last Admin: 08/20/16 05:11 Dose: 5 ml - Labs Labs: 08/13/16 08:57 08/15/16 07:00 - Constitutional Appears: No Acute Distress - Head Exam Head Exam: ATRAUMATIC, NORMOCEPHALIC - Eye Exam Eye Exam: Normal appearance - ENT Exam ENT Exam: Mucous Membranes Moist - Neck Exam Neck Exam: Normal Inspection - Respiratory Exam Respiratory Exam: Rhonchi, Wheezes - Cardiovascular Exam Cardiovascular Exam: REGULAR RHYTHM - GI/Abdominal Exam GI & Abdominal Exam: Soft, Normal Bowel Sounds - Extremities Exam Extremities Exam: Normal Inspection - Neurological Exam Neurological Exam: Alert, Oriented x3 Assessment and Plan (1) Sputum culture positive for ESBL E. coli Assessment & Plan: putum culture positive for ESBL Consider starting her Primaxin Continue steroids, bronchodilators Status: Acute (2) Cough Status: Acute
[2016-08-21] MEDS: Azithromycin 500 MG in Sodium Chloride 0.9% 250 ML IVPB SCH ×2 (00:10→22:23)
[2016-08-21] MEDS: Albuterol-Ipratrop 3 mg / 0.5 (3 ml) UD INH SCH ×7 (01:10→23:59)
[2016-08-21] MEDS: MethylPREDNISolone 40 mg Vial IVP SCH ×4 (05:42→23:47)
[2016-08-21] MEDS: Promethazine/Cod 6.25mg-10mg/5ml Syr UD PO SCH ×4 (05:42→23:47)
[2016-08-21] MEDS: Patient's Own Medication - Tablet/Capusle PO SCH ×2 (05:51→18:11)
[2016-08-21 07:42] LABS: CHLORIDE 94 mmol/L (98-107); SODIUM 132 mmol/L (132-148)
[2016-08-21 07:43] LABS: POTASSIUM 4.2 mmol/L (3.6-5.2)
[2016-08-21 07:44] LABS: GFR AFRICAN-AMERICAN > 60
[2016-08-21 07:45] LABS: ALB/GLOB RATIO 0.9 (1.0-2.1); ALKALINE PHOSPHATASE 49 U/L (38-126); ALT/SGPT 17 U/L (9-52); AST/SGOT 17 U/L (14-36); BILIRUBIN,DIRECT 0.4 mg/dL (0.0-0.4); BILIRUBIN,TOTAL 0.6 mg/dL (0.2-1.3); BLOOD UREA NITROGEN 50 mg/dL (7-17); CALCIUM 8.7 mg/dl (8.6-10.4); CARBON DIOXIDE 24 mmol/L (22-30); GLUCOSE,RANDOM 135 mg/dL (65-105); TOTAL PROTEIN 6.7 g/dL (6.3-8.3)
[2016-08-21] MEDS: Budesonide 0.5 mg/2 ml Inhal Susp UD INH SCH ×2 (07:56→20:33)
[2016-08-21] MEDS ORDERED: Lidocaine 1% Inj (20ml) ONE (09:36)
--- NOTE | 2016-08-21 10:09 | PCM.SURG1 ---
Surgeon's Initial Post Op Note - Surgeon's Notes Surgeon: Christian Holt MD [employer] Golf Cart Repairer: NONE Type of Anesthesia: Local Pre-Operative Diagnosis: Poor venous access Operative Findings: Patent basilic vein Post-Operative Diagnosis: Poor venous access Operation Performed: Single lumen picc placement right basilic vein, 35 cm. Tip in SVC. Dressing change PRN. Specimen/Specimens Removed: None Estimated Blood Loss: EBL {In ML}: 2 Blood Products Given: N/A Drains Used: No Drains Post-Op Condition: Fair Date of Surgery/Procedure: 08/21/16 Time of Surgery/Procedure: 10:05
[2016-08-21] MEDS: MULTIVITAMIN PO SCH (10:38)
[2016-08-21] MEDS: [UNRECOGNIZED DRUG - OTHER] PO SCH (10:38)
[2016-08-21] MEDS: Enoxaparin 30 mg Syringe SC SCH (10:42)
[2016-08-21] MEDS: Nystatin 100,000 Units/ml Oral Susp 5 ml UD PO SCH ×4 (10:55→22:20)
--- NOTE | 2016-08-21 11:05 | CP.PCM.PN ---
Subjective - Date & Time of Evaluation Date of Evaluation: 08/21/16 Time of Evaluation: 11:00 - Subjective Subjective: Afebrile. Patient claims the hoarseness is slighly better. Styarted on Tygasil last night. Primaxin was discontinued by Dr. Day the ID identity management consultant. Still coughing quite a bit. Objective - Vital Signs/Intake and Output Vital Signs (last 24 hours): Temp Pulse Resp BP Pulse Ox 98.8 F 101 H 20 145/87 93 L 08/21/16 08:08 08/21/16 08:08 08/21/16 08:08 08/21/16 08:08 08/21/16 08:08 Intake and Output: 08/21/16 08/21/16 06:59 18:59 Intake Total 990 Balance 990 - Medications Medications: Current Medications Albuterol/Ipratropium (Duoneb 3 Mg/0.5 Mg (3 Ml) Ud) 3 ml INH RQ4 [facility] Last Admin: 08/21/16 07:56 Dose: 3 ml Budesonide (Pulmicort Respules) 0.5 mg INH RQ12 [facility] Last Admin: 08/21/16 07:56 Dose: 0.5 mg Enoxaparin Sodium (Lovenox) 30 mg SC DAILY [facility] Last Admin: 08/21/16 10:42 Dose: Not Given Gabapentin (Neurontin) 100 mg PO TID [facility] Last Admin: 08/21/16 10:38 Dose: 100 mg Home Med (Patient's Own Medication) 1 tab PO Q12H [facility] Last Admin: 08/21/16 05:51 Dose: 1 tab Home Med (Patient's Own Medication) 1 tab PO DAILY [facility] Last Admin: 08/21/16 10:38 Dose: 1 tab Tigecycline 50 mg/ Sodium (Chloride) 100 mls @ 100 mls/hr IVPB Q12H [facility] Last Admin: 08/21/16 02:49 Dose: 100 mls/hr Azithromycin 500 mg/ Sodium (Chloride) 250 mls @ 250 mls/hr IVPB Q24H [facility] Last Admin: 08/21/16 00:10 Dose: 250 mls/hr Methylprednisolone (Solu-Medrol) 40 mg IVP Q6H [facility] Last Admin: 08/21/16 10:41 Dose: 40 mg Nystatin (Nystatin Oral Susp) 5 ml PO QID [facility] Last Admin: 08/21/16 10:55 Dose: 5 ml Pantoprazole Sodium (Protonix Inj) 40 mg IVP DAILY [facility] Last Admin: 08/21/16 10:39 Dose: 40 mg Promethazine HCl/Codeine (Phenergan/Codeine Oral Syrup) 5 ml PO Q6H [facility] Last Admin: 08/21/16 10:55 Dose: 5 ml - Labs Labs: 08/13/16 08:57 08/21/16 07:01 Assessment and Plan (1) Pneumonia Status: Resolved (2) Bronchitis Status: Acute (3) Hypertension Status: Chronic (4) Cholelithiasis Status: Chronic (5) Thyroid nodule Status: Chronic (6) Sputum culture positive for ESBL E. coli Status: Acute - Assessment and Plan (Free Text) Plan: Plan: Continue Tygasil X 3 weeks. Continue IV solumedrol. Respiratory treatments.
--- NOTE | 2016-08-21 13:27 | CP.PCM.PN ---
Subjective - Date & Time of Evaluation Date of Evaluation: 08/21/16 Time of Evaluation: 13:27 - Subjective Subjective: AFEBRILE, STILL WHEEZING, +VE PRODUCTIVE COUGH S/P PILAR PICC LINE TOLERATING iv TYGACIL. SERUM IGE 300 HIGH -?ASTHMA ULTRASOUND THYROID -MULTINODULAR THYROID. Objective - Vital Signs/Intake and Output Vital Signs (last 24 hours): Temp Pulse Resp BP Pulse Ox 98.8 F 101 H 20 145/87 93 L 08/21/16 08:08 08/21/16 08:08 08/21/16 08:08 08/21/16 08:08 08/21/16 08:08 Intake and Output: 08/21/16 08/21/16 06:59 18:59 Intake Total 990 Balance 990 - Medications Medications: Current Medications Albuterol/Ipratropium (Duoneb 3 Mg/0.5 Mg (3 Ml) Ud) 3 ml INH RQ4 [facility] Last Admin: 08/21/16 11:10 Dose: 3 ml Budesonide (Pulmicort Respules) 0.5 mg INH RQ12 [facility] Last Admin: 08/21/16 07:56 Dose: 0.5 mg Enoxaparin Sodium (Lovenox) 30 mg SC DAILY [facility] Last Admin: 08/21/16 10:42 Dose: Not Given Gabapentin (Neurontin) 100 mg PO TID [facility] Last Admin: 08/21/16 10:38 Dose: 100 mg Home Med (Patient's Own Medication) 1 tab PO Q12H [facility] Last Admin: 08/21/16 05:51 Dose: 1 tab Home Med (Patient's Own Medication) 1 tab PO DAILY [facility] Last Admin: 08/21/16 10:38 Dose: 1 tab Tigecycline 50 mg/ Sodium (Chloride) 100 mls @ 100 mls/hr IVPB Q12H [facility] Last Admin: 08/21/16 02:49 Dose: 100 mls/hr Azithromycin 500 mg/ Sodium (Chloride) 250 mls @ 250 mls/hr IVPB Q24H [facility] Last Admin: 08/21/16 00:10 Dose: 250 mls/hr Methylprednisolone (Solu-Medrol) 40 mg IVP Q6H [facility] Last Admin: 08/21/16 10:41 Dose: 40 mg Nystatin (Nystatin Oral Susp) 5 ml PO QID [facility] Last Admin: 08/21/16 10:55 Dose: 5 ml Pantoprazole Sodium (Protonix Inj) 40 mg IVP DAILY [facility] Last Admin: 08/21/16 10:39 Dose: 40 mg Promethazine HCl/Codeine (Phenergan/Codeine Oral Syrup) 5 ml PO Q6H [facility] Last Admin: 08/21/16 10:55 Dose: 5 ml - Labs Labs: 08/13/16 08:57 08/21/16 07:01 - Constitutional Appears: No Acute Distress - Head Exam Head Exam: NORMAL INSPECTION - Eye Exam Eye Exam: EOMI, PERRL - ENT Exam ENT Exam: Normal Oropharynx - Neck Exam Neck Exam: Normal Inspection - Respiratory Exam Respiratory Exam: Rhonchi, Wheezes - Cardiovascular Exam Cardiovascular Exam: REGULAR RHYTHM, +S1, +S2 - GI/Abdominal Exam GI & Abdominal Exam: Soft, Normal Bowel Sounds - Extremities Exam Extremities Exam: Normal Capillary Refill. absent: Calf Tenderness, Pedal Edema - Neurological Exam Neurological Exam: Awake, CN II-XII Intact, Normal Gait, Oriented x3, Reflexes Normal - Psychiatric Exam Psychiatric exam: Normal Mood - Skin Skin Exam: Normal Color, Warm Assessment and Plan (1) Pneumonia Status: Resolved (2) Sputum culture positive for ESBL E. coli Status: Acute (3) Cough Status: Acute (4) Hypertension Status: Chronic (5) Thyroid nodule Status: Chronic - Assessment and Plan (Free Text) Plan: CONTINUE iv TYGACIL 100 MG LOADING DOSE,.08/20/16 F/U TYGACIL 50 MG EVERY 12 HOURLY. ON ZITHROMAX 500 MG ONCE A DAY DAILY 08/20/16 X 5DAYS CONTINUE iv SOLU-MEDROL 40 MG EVERY 8 HOURLY PER PULMONARY 08/18 PULMONARY TOILET.
[2016-08-21 15:11] LABS: FREE T4 0.55 ng/dL (0.78-2.19)
[2016-08-21 15:25] LABS: THYROID STIMULATING HORMONE 0.21 mIU/L (0.46-4.68)
--- NOTE | 2016-08-21 17:26 | CP.PCM.PN ---
Subjective - Date & Time of Evaluation Date of Evaluation: 08/21/16 Time of Evaluation: 14:00 - Subjective Subjective: Patient seen and examined. Still complaining of cough but feeling better Denies fever or chills, denies chest pain Seen by infectious disease Objective - Vital Signs/Intake and Output Vital Signs (last 24 hours): Temp Pulse Resp BP Pulse Ox 98.2 F 91 H 20 157/88 H 96 08/21/16 16:00 08/21/16 16:00 08/21/16 16:00 08/21/16 16:00 08/21/16 16:00 Intake and Output: 08/21/16 08/21/16 06:59 18:59 Intake Total 990 500 Balance 990 500 - Medications Medications: Current Medications Albuterol/Ipratropium (Duoneb 3 Mg/0.5 Mg (3 Ml) Ud) 3 ml INH RQ4 [facility] Last Admin: 08/21/16 16:16 Dose: 3 ml Budesonide (Pulmicort Respules) 0.5 mg INH RQ12 [facility] Last Admin: 08/21/16 07:56 Dose: 0.5 mg Enoxaparin Sodium (Lovenox) 30 mg SC DAILY [facility] Last Admin: 08/21/16 10:42 Dose: Not Given Gabapentin (Neurontin) 100 mg PO TID [facility] Last Admin: 08/21/16 14:16 Dose: 100 mg Home Med (Patient's Own Medication) 1 tab PO Q12H [facility] Last Admin: 08/21/16 05:51 Dose: 1 tab Home Med (Patient's Own Medication) 1 tab PO DAILY [facility] Last Admin: 08/21/16 10:38 Dose: 1 tab Tigecycline 50 mg/ Sodium (Chloride) 100 mls @ 100 mls/hr IVPB Q12H [facility] Last Admin: 08/21/16 14:16 Dose: 100 mls/hr Azithromycin 500 mg/ Sodium (Chloride) 250 mls @ 250 mls/hr IVPB Q24H [facility] Last Admin: 08/21/16 00:10 Dose: 250 mls/hr Methylprednisolone (Solu-Medrol) 40 mg IVP Q6H [facility] Last Admin: 08/21/16 16:59 Dose: 40 mg Nystatin (Nystatin Oral Susp) 5 ml PO QID [facility] Last Admin: 08/21/16 14:16 Dose: 5 ml Pantoprazole Sodium (Protonix Inj) 40 mg IVP DAILY [facility] Last Admin: 08/21/16 10:39 Dose: 40 mg Promethazine HCl/Codeine (Phenergan/Codeine Oral Syrup) 5 ml PO Q6H [facility] Last Admin: 08/21/16 17:00 Dose: 5 ml - Labs Labs: 08/13/16 08:57 08/21/16 07:01 - Head Exam Head Exam: ATRAUMATIC, NORMOCEPHALIC - Eye Exam Eye Exam: Normal appearance - ENT Exam ENT Exam: Mucous Membranes Moist - Neck Exam Neck Exam: Normal Inspection - Respiratory Exam Respiratory Exam: Rhonchi - Cardiovascular Exam Cardiovascular Exam: REGULAR RHYTHM - GI/Abdominal Exam GI & Abdominal Exam: Soft, Normal Bowel Sounds - Extremities Exam Extremities Exam: Normal Inspection Assessment and Plan (1) Sputum culture positive for ESBL E. coli Assessment & Plan: Started on tigecycline by infectious disease Continue steroids and nebulizer treatment/antitussives Status: Acute (2) Cough Status: Acute
[2016-08-22] MEDS: Albuterol-Ipratrop 3 mg / 0.5 (3 ml) UD INH SCH ×4 (04:35→16:33)
[2016-08-22] MEDS: Patient's Own Medication - Tablet/Capusle PO SCH ×2 (05:29→17:37)
[2016-08-22] MEDS: Promethazine/Cod 6.25mg-10mg/5ml Syr UD PO SCH ×4 (05:29→23:53)
[2016-08-22] MEDS: MethylPREDNISolone 40 mg Vial IVP SCH ×4 (05:30→23:54)
--- NOTE | 2016-08-22 07:48 | CP.PCM.PN ---
Subjective - Date & Time of Evaluation Date of Evaluation: 08/22/16 Time of Evaluation: 07:45 - Subjective Subjective: Afebrile. Patient started on Tygacil for the E Coli infection in the sputum. TSH and t4 are both low. Will obtain thyroid scan and KURT uptake on wednesday. Objective - Vital Signs/Intake and Output Vital Signs (last 24 hours): Temp Pulse Resp BP Pulse Ox 97.8 F 90 20 146/86 95 08/22/16 00:00 08/22/16 00:00 08/22/16 00:00 08/22/16 00:00 08/22/16 00:00 Intake and Output: 08/22/16 08/22/16 06:59 18:59 Intake Total 800 Balance 800 - Medications Medications: Current Medications Albuterol/Ipratropium (Duoneb 3 Mg/0.5 Mg (3 Ml) Ud) 3 ml INH RQ4 [facility] Last Admin: 08/22/16 04:35 Dose: 3 ml Budesonide (Pulmicort Respules) 0.5 mg INH RQ12 [facility] Last Admin: 08/21/16 20:33 Dose: 0.5 mg Enoxaparin Sodium (Lovenox) 30 mg SC DAILY [facility] Last Admin: 08/21/16 10:42 Dose: Not Given Home Med (Patient's Own Medication) 1 tab PO Q12H [facility] Last Admin: 08/22/16 05:29 Dose: 1 tab Home Med (Patient's Own Medication) 1 tab PO DAILY [facility] Last Admin: 08/21/16 10:38 Dose: 1 tab Tigecycline 50 mg/ Sodium (Chloride) 100 mls @ 100 mls/hr IVPB Q12H [facility] Last Admin: 08/22/16 02:00 Dose: 100 mls/hr Azithromycin 500 mg/ Sodium (Chloride) 250 mls @ 250 mls/hr IVPB Q24H [facility] Last Admin: 08/21/16 22:23 Dose: 250 mls/hr Methylprednisolone (Solu-Medrol) 40 mg IVP Q6H [facility] Last Admin: 08/22/16 05:30 Dose: 40 mg Nystatin (Nystatin Oral Susp) 5 ml PO QID [facility] Last Admin: 08/21/16 22:20 Dose: 5 ml Pantoprazole Sodium (Protonix Inj) 40 mg IVP DAILY [facility] Last Admin: 08/21/16 10:39 Dose: 40 mg Promethazine HCl/Codeine (Phenergan/Codeine Oral Syrup) 5 ml PO Q6H [facility] Last Admin: 08/22/16 05:29 Dose: 5 ml - Labs Labs: 08/13/16 08:57 08/21/16 07:01 Assessment and Plan (1) Pneumonia Status: Resolved (2) Bronchitis Status: Acute (3) Hypertension Status: Chronic (4) Cholelithiasis Status: Chronic (5) Thyroid nodule Status: Chronic (6) Sputum culture positive for ESBL E. coli Status: Acute - Assessment and Plan (Free Text) Plan: Plan: continue IV Solumedrol and Tygasil. Continue respiratory treatments.
[2016-08-22] MEDS: Budesonide 0.5 mg/2 ml Inhal Susp UD INH SCH ×2 (08:05→20:22)
[2016-08-22 09:35] LABS: BASO % 0.1 % (0.0-2.0); LYMPH # 0.5 K/uL (1.0-4.3); LYMPH % 3.9 % (20.0-40.0); MEAN CELL VOLUME 89.7 fL (81.0-99.0); MEAN CORPUSCULAR HEMOGLOBIN 29.5 pg (27.0-31.0); MEAN CORPUSCULAR HGB CONC 32.9 g/dL (33.0-37.0); MEAN PLATELET VOLUME 6.8 fL (7.2-11.7); MONO # 0.4 K/uL (0.0-0.8); PLATELET COUNT 484 K/uL (130-400); WHITE BLOOD COUNT 13.7 K/uL (4.8-10.8)
[2016-08-22] MEDS: [UNRECOGNIZED DRUG - OTHER] PO SCH (09:56)
[2016-08-22] MEDS: MULTIVITAMIN PO SCH (09:56)
[2016-08-22] MEDS: Enoxaparin 30 mg Syringe SC SCH (09:56)
[2016-08-22] MEDS: Nystatin 100,000 Units/ml Oral Susp 5 ml UD PO SCH ×4 (10:08→22:10)
[2016-08-22 10:28] LABS: NEUTROPHIL 90 % (50-75); TOTAL CELLS COUNTED 100
--- NOTE | 2016-08-22 18:05 | CP.PCM.PN ---
Subjective - Date & Time of Evaluation Date of Evaluation: 08/22/16 Time of Evaluation: 18:05 - Subjective Subjective: AFEBRILE. STILL WITH COUGH LESS HOARSENESS/LESS WHEEZING. SPUTUM +VE ESBL ECOLI -S TYGACIL , CIPRO PT HAS MULTIPLE ALLERGIES INCLUDING QUINOLONES STARTED ON IV TYGACIL AND TOLERATING IT. LABS LOW TSH LOW T4 Objective - Vital Signs/Intake and Output Vital Signs (last 24 hours): Temp Pulse Resp BP Pulse Ox 97.4 F L 89 20 153/89 H 97 08/22/16 15:00 08/22/16 15:00 08/22/16 15:00 08/22/16 15:00 08/22/16 15:00 Intake and Output: 08/22/16 08/22/16 06:59 18:59 Intake Total 800 340 Balance 800 340 - Medications Medications: Current Medications Albuterol/Ipratropium (Duoneb 3 Mg/0.5 Mg (3 Ml) Ud) 3 ml INH RQ4 [facility] Last Admin: 08/22/16 16:33 Dose: 3 ml Budesonide (Pulmicort Respules) 0.5 mg INH RQ12 [facility] Last Admin: 08/22/16 08:05 Dose: 0.5 mg Enoxaparin Sodium (Lovenox) 30 mg SC DAILY [facility] Last Admin: 08/22/16 09:56 Dose: Not Given Home Med (Patient's Own Medication) 1 tab PO Q12H [facility] Last Admin: 08/22/16 17:37 Dose: 1 tab Home Med (Patient's Own Medication) 1 tab PO DAILY [facility] Last Admin: 08/22/16 09:56 Dose: 1 tab Tigecycline 50 mg/ Sodium (Chloride) 100 mls @ 100 mls/hr IVPB Q12H [facility] Last Admin: 08/22/16 14:21 Dose: 100 mls/hr Azithromycin 500 mg/ Sodium (Chloride) 250 mls @ 250 mls/hr IVPB Q24H [facility] Last Admin: 08/21/16 22:23 Dose: 250 mls/hr Methylprednisolone (Solu-Medrol) 20 mg IVP Q6 [facility] Last Admin: 08/22/16 12:15 Dose: 20 mg Nystatin (Nystatin Oral Susp) 5 ml PO QID [facility] Last Admin: 08/22/16 14:21 Dose: 5 ml Pantoprazole Sodium (Protonix Inj) 40 mg IVP DAILY [facility] Last Admin: 08/22/16 09:57 Dose: 40 mg Promethazine HCl/Codeine (Phenergan/Codeine Oral Syrup) 5 ml PO Q6H [facility] Last Admin: 08/22/16 17:35 Dose: 5 ml - Labs Labs: 08/22/16 09:32 08/21/16 07:01 - Constitutional Appears: No Acute Distress - Head Exam Head Exam: NORMAL INSPECTION - Eye Exam Eye Exam: EOMI, PERRL - ENT Exam ENT Exam: Normal Oropharynx - Neck Exam Neck Exam: Normal Inspection - Respiratory Exam Respiratory Exam: Rhonchi, Wheezes - Cardiovascular Exam Cardiovascular Exam: REGULAR RHYTHM, +S1, +S2 - GI/Abdominal Exam GI & Abdominal Exam: Soft, Normal Bowel Sounds. absent: Organomegaly - Extremities Exam Extremities Exam: Normal Capillary Refill. absent: Calf Tenderness, Pedal Edema - Neurological Exam Neurological Exam: Awake, CN II-XII Intact, Oriented x3 - Psychiatric Exam Psychiatric exam: Flat Affect - Skin Skin Exam: Normal Color, Warm Assessment and Plan (1) Pneumonia Status: Resolved (2) Sputum culture positive for ESBL E. coli Status: Acute (3) Cough Status: Acute (4) Hypertension Status: Chronic (5) Thyroid nodule Assessment & Plan: US THYROID - MULTINODULAR GOITRE. PT FOR THYROID SCAN PER PMD. Status: Chronic - Assessment and Plan (Free Text) Plan: CONTINUE iv TYGACIL 100 MG LOADING DOSE,.08/20/16 F/U TYGACIL 50 MG EVERY 12 HOURLY FOR NOW. ON ZITHROMAX 500 MG ONCE A DAY DAILY 08/20/16 X 5DAYS CONTINUE iv SOLU-MEDROL 40 MG EVERY 8 HOURLY PER PULMONARY 08/18 F/U PERTUSSIS SEROLOGY. PULMONARY TOILET. RESPIRATORY /CONTACT PRECAUTIONS.
--- NOTE | 2016-08-22 18:06 | CP.PCM.PN ---
Subjective - Date & Time of Evaluation Date of Evaluation: 08/22/16 Time of Evaluation: 15:30 - Subjective Subjective: Patient seen and examined. Patient states cough and shortness of breath much improved Less wheezing Less hoarseness of voice Objective - Vital Signs/Intake and Output Vital Signs (last 24 hours): Temp Pulse Resp BP Pulse Ox 97.4 F L 89 20 153/89 H 97 08/22/16 15:00 08/22/16 15:00 08/22/16 15:00 08/22/16 15:00 08/22/16 15:00 Intake and Output: 08/22/16 08/22/16 06:59 18:59 Intake Total 800 340 Balance 800 340 - Medications Medications: Current Medications Albuterol/Ipratropium (Duoneb 3 Mg/0.5 Mg (3 Ml) Ud) 3 ml INH RQ4 [facility] Last Admin: 08/22/16 16:33 Dose: 3 ml Budesonide (Pulmicort Respules) 0.5 mg INH RQ12 [facility] Last Admin: 08/22/16 08:05 Dose: 0.5 mg Enoxaparin Sodium (Lovenox) 30 mg SC DAILY [facility] Last Admin: 08/22/16 09:56 Dose: Not Given Home Med (Patient's Own Medication) 1 tab PO Q12H [facility] Last Admin: 08/22/16 17:37 Dose: 1 tab Home Med (Patient's Own Medication) 1 tab PO DAILY [facility] Last Admin: 08/22/16 09:56 Dose: 1 tab Tigecycline 50 mg/ Sodium (Chloride) 100 mls @ 100 mls/hr IVPB Q12H [facility] Last Admin: 08/22/16 14:21 Dose: 100 mls/hr Azithromycin 500 mg/ Sodium (Chloride) 250 mls @ 250 mls/hr IVPB Q24H [facility] Last Admin: 08/21/16 22:23 Dose: 250 mls/hr Methylprednisolone (Solu-Medrol) 20 mg IVP Q6 [facility] Last Admin: 08/22/16 12:15 Dose: 20 mg Nystatin (Nystatin Oral Susp) 5 ml PO QID [facility] Last Admin: 08/22/16 14:21 Dose: 5 ml Pantoprazole Sodium (Protonix Inj) 40 mg IVP DAILY [facility] Last Admin: 08/22/16 09:57 Dose: 40 mg Promethazine HCl/Codeine (Phenergan/Codeine Oral Syrup) 5 ml PO Q6H [facility] Last Admin: 08/22/16 17:35 Dose: 5 ml - Labs Labs: 08/22/16 09:32 08/21/16 07:01 - Head Exam Head Exam: ATRAUMATIC, NORMOCEPHALIC - Eye Exam Eye Exam: Normal appearance - ENT Exam ENT Exam: Mucous Membranes Moist - Neck Exam Neck Exam: Normal Inspection - Respiratory Exam Respiratory Exam: Rhonchi - Cardiovascular Exam Cardiovascular Exam: REGULAR RHYTHM - GI/Abdominal Exam GI & Abdominal Exam: Soft, Normal Bowel Sounds - Extremities Exam Extremities Exam: Normal Inspection - Neurological Exam Neurological Exam: Alert, Oriented x3 Assessment and Plan (1) Sputum culture positive for ESBL E. coli Assessment & Plan: Continue antibiotics Continue steroids, nebulizer treatment and antitussives Clinical improvement Status: Acute (2) Cough Status: Acute
[2016-08-22 21:57] LABS: URINE BACTERIA RARE (<OCC); URINE BILIRUBIN NEGATIVE (NEGATIVE); URINE BLOOD NEGATIVE (NEGATIVE); URINE COLOR Straw (YELLOW); URINE GLUCOSE (UA) NORMAL (Normal); URINE KETONE NEGATIVE (NEGATIVE); URINE LEUKOCYTE ESTERASE NEG Leu/uL (Negative); URINE PROTEIN NEGATIVE (NEGATIVE); URINE UROBILINOGEN NORMAL mg/dL (0.2-1.0)
[2016-08-22] MEDS: Azithromycin 500 MG in Sodium Chloride 0.9% 250 ML IVPB SCH (22:12)
[2016-08-23] MEDS: Albuterol-Ipratrop 3 mg / 0.5 (3 ml) UD INH SCH ×4 (00:02→11:35)
[2016-08-23] MEDS: MethylPREDNISolone 40 mg Vial IVP SCH ×3 (05:59→22:16)
[2016-08-23] MEDS: Promethazine/Cod 6.25mg-10mg/5ml Syr UD PO SCH ×3 (05:59→17:30)
[2016-08-23] MEDS: Patient's Own Medication - Tablet/Capusle PO SCH ×2 (06:06→18:11)
[2016-08-23] MEDS: Budesonide 0.5 mg/2 ml Inhal Susp UD INH SCH ×2 (07:49→19:50)
[2016-08-23] MEDS: Enoxaparin 30 mg Syringe SC SCH (09:52)
[2016-08-23] MEDS: Nystatin 100,000 Units/ml Oral Susp 5 ml UD PO SCH ×4 (09:53→22:16)
[2016-08-23] MEDS: MULTIVITAMIN PO SCH (09:53)
[2016-08-23] MEDS: [UNRECOGNIZED DRUG - OTHER] PO SCH (09:53)
--- NOTE | 2016-08-23 13:59 | CP.PCM.PN ---
Subjective - Date & Time of Evaluation Date of Evaluation: 08/23/16 Time of Evaluation: 01:55 - Subjective Subjective: patient is afebrile, but lesser haorsenees and cough. No wheezing noted. No SOB. WBC yesterday was 13,700. Objective - Vital Signs/Intake and Output Vital Signs (last 24 hours): Temp Pulse Resp BP Pulse Ox 98.1 F 101 H 20 136/76 94 L 08/23/16 08:31 08/23/16 08:31 08/23/16 08:31 08/23/16 08:31 08/23/16 08:31 - Medications Medications: Current Medications Albuterol/Ipratropium (Duoneb 3 Mg/0.5 Mg (3 Ml) Ud) 3 ml INH RQ8 [facility] Budesonide (Pulmicort Respules) 0.5 mg INH RQ12 [facility] Last Admin: 08/23/16 07:49 Dose: 0.5 mg Enoxaparin Sodium (Lovenox) 30 mg SC DAILY [facility] Last Admin: 08/23/16 09:52 Dose: Not Given Home Med (Patient's Own Medication) 1 tab PO Q12H [facility] Last Admin: 08/23/16 06:06 Dose: 1 tab Home Med (Patient's Own Medication) 1 tab PO DAILY [facility] Last Admin: 08/23/16 09:53 Dose: 1 tab Tigecycline 50 mg/ Sodium (Chloride) 100 mls @ 100 mls/hr IVPB Q12H [facility] Last Admin: 08/23/16 02:02 Dose: 100 mls/hr Azithromycin 500 mg/ Sodium (Chloride) 250 mls @ 250 mls/hr IVPB Q24H [facility] Methylprednisolone (Solu-Medrol) 20 mg IVP Q12 [facility] Nystatin (Nystatin Oral Susp) 5 ml PO QID [facility] Last Admin: 08/23/16 09:53 Dose: 5 ml Pantoprazole Sodium (Protonix Inj) 40 mg IVP DAILY [facility] Last Admin: 08/23/16 09:53 Dose: 40 mg Promethazine HCl/Codeine (Phenergan/Codeine Oral Syrup) 5 ml PO Q6H [facility] Last Admin: 08/23/16 11:32 Dose: 5 ml - Labs Labs: 08/22/16 09:32 08/21/16 07:01 - Constitutional Appears: No Acute Distress - Head Exam Head Exam: ATRAUMATIC, NORMAL INSPECTION - Eye Exam Pupil Exam: NORMAL ACCOMODATION, PERRL - ENT Exam ENT Exam: Normal External Ear Exam - Neck Exam Neck Exam: Full ROM - Respiratory Exam Respiratory Exam: Rhonchi - Cardiovascular Exam Cardiovascular Exam: REGULAR RHYTHM, +S1, +S2 - GI/Abdominal Exam GI & Abdominal Exam: Soft - Rectal Exam Rectal Exam: Deferred - Extremities Exam Extremities Exam: Full ROM, Normal Inspection - Back Exam Back Exam: Full ROM, vertebral tenderness - Neurological Exam Neurological Exam: Alert, Awake, CN II-XII Intact, Oriented x3 - Psychiatric Exam Psychiatric exam: Normal Affect, Normal Mood - Skin Skin Exam: Dry, Intact, Normal Color Assessment and Plan (1) Pneumonia Status: Resolved (2) Bronchitis Status: Acute (3) Hypertension Status: Chronic (4) Cholelithiasis Status: Chronic (5) Thyroid nodule Status: Chronic (6) Sputum culture positive for ESBL E. coli Status: Acute - Assessment and Plan (Free Text) Plan: Plan: Continue IV Azithromycin X 2 more days from today. Continue IV Tygacil for now. Decrease IV Solumedrol to 20 mgm q 12 hours Douneb nebulizer to q 8 hours. For thyroid scan and KURT uptake tomorrow.
--- NOTE | 2016-08-23 17:03 | CP.PCM.PN ---
Subjective - Date & Time of Evaluation Date of Evaluation: 08/23/16 Time of Evaluation: 09:00 - Subjective Subjective: Patient seen and examined. Still complaining of cough and wheezing Afebrile Objective - Vital Signs/Intake and Output Vital Signs (last 24 hours): Temp Pulse Resp BP Pulse Ox 98 F 101 H 21 159/84 H 94 L 08/23/16 15:00 08/23/16 15:00 08/23/16 15:00 08/23/16 15:00 08/23/16 15:00 Intake and Output: 08/23/16 08/23/16 06:59 18:59 Intake Total 580 Balance 580 - Medications Medications: Current Medications Albuterol/Ipratropium (Duoneb 3 Mg/0.5 Mg (3 Ml) Ud) 3 ml INH RQ8 [facility] Budesonide (Pulmicort Respules) 0.5 mg INH RQ12 [facility] Last Admin: 08/23/16 07:49 Dose: 0.5 mg Enoxaparin Sodium (Lovenox) 30 mg SC DAILY [facility] Last Admin: 08/23/16 09:52 Dose: Not Given Home Med (Patient's Own Medication) 1 tab PO Q12H [facility] Last Admin: 08/23/16 06:06 Dose: 1 tab Home Med (Patient's Own Medication) 1 tab PO DAILY [facility] Last Admin: 08/23/16 09:53 Dose: 1 tab Tigecycline 50 mg/ Sodium (Chloride) 100 mls @ 100 mls/hr IVPB Q12H [facility] Last Admin: 08/23/16 14:03 Dose: 100 mls/hr Azithromycin 500 mg/ Sodium (Chloride) 250 mls @ 250 mls/hr IVPB Q24H [facility] Methylprednisolone (Solu-Medrol) 20 mg IVP Q12 [facility] Nystatin (Nystatin Oral Susp) 5 ml PO QID [facility] Last Admin: 08/23/16 14:03 Dose: 5 ml Pantoprazole Sodium (Protonix Inj) 40 mg IVP DAILY [facility] Last Admin: 08/23/16 09:53 Dose: 40 mg Promethazine HCl/Codeine (Phenergan/Codeine Oral Syrup) 5 ml PO Q6H [facility] Last Admin: 08/23/16 11:32 Dose: 5 ml - Labs Labs: 08/22/16 09:32 06/09/17 07:01 - Head Exam Head Exam: ATRAUMATIC, NORMOCEPHALIC - Eye Exam Eye Exam: Normal appearance - ENT Exam ENT Exam: Mucous Membranes Moist - Neck Exam Neck Exam: Normal Inspection - Respiratory Exam Respiratory Exam: Rhonchi, Wheezes - Cardiovascular Exam Cardiovascular Exam: REGULAR RHYTHM - GI/Abdominal Exam GI & Abdominal Exam: Soft, Normal Bowel Sounds - Extremities Exam Extremities Exam: Full ROM, Normal Inspection Assessment and Plan (1) Sputum culture positive for ESBL E. coli Assessment & Plan: Continue IV steroids, nebulizer treatment Started on budesonide Continue antitussives Antibiotics per infectious disease Status: Acute (2) Cough Status: Acute
[2016-08-23] MEDS: Azithromycin 500 MG in Sodium Chloride 0.9% 250 ML IVPB SCH (22:16)
[2016-08-24] MEDS: Albuterol-Ipratrop 3 mg / 0.5 (3 ml) UD INH SCH ×3 (00:10→15:57)
[2016-08-24] MEDS: Promethazine/Cod 6.25mg-10mg/5ml Syr UD PO SCH ×5 (00:23→23:50)
[2016-08-24] MEDS: Budesonide 0.5 mg/2 ml Inhal Susp UD INH SCH ×2 (08:00→20:02)
[2016-08-24] MEDS: [UNRECOGNIZED DRUG - OTHER] PO SCH (09:16)
[2016-08-24] MEDS: MULTIVITAMIN PO SCH (09:16)
[2016-08-24] MEDS: MethylPREDNISolone 40 mg Vial IVP SCH ×2 (09:22→22:09)
[2016-08-24] MEDS: Nystatin 100,000 Units/ml Oral Susp 5 ml UD PO SCH ×4 (09:23→22:09)
--- NOTE | 2016-08-24 09:36 | RAD ---
PROCEDURE: Date of procedure: 08/21/2016 Procedure: 1. Placement of a right arm PICC with ultrasound and fluoroscopic guidance, CPT 06213 2. PICC tip confirmation with spot radiograph and is in the superior vena cava Medications: 1 percent lidocaine Total Fluoro time: 12.1 seconds Radiation: 0.99580 mGym2 EBL: 2 cc HISTORY: Bacteremia requiring long-term IV antibiotics TECHNIQUE: Following informed consent and procedure time-out, the patient was placed supine on the interventional table and the right arm prepped and draped in the usual sterile fashion. Ultrasound showed a patent and compressible right basilic vein. After the skin was anesthetized with lidocaine, the basilic vein was accessed with micro micropuncture technique using ultrasound guidance. A guidewire was then advanced under fluoroscopic guidance into the superior vena cava. An image documenting ultrasound guidance for vascular access was permanently saved. The length of the single-lumen 4 Italian PICC was trimmed to 35 centimeters and advanced through a peel-away sheath. The PICC was position with tip of PICC confirm a spot radiograph the superior vena cava. The PICC was secured to the patient's skin. The PICC was flushed. A biopatch and sterile dressing was applied. IMPRESSION: Placement of a single-lumen 4 Italian PICC trimmed to 35 centimeters via right basilic vein. The tip of the PICC is confirmed with spot radiograph and is in the superior vena cava.
--- NOTE | 2016-08-24 09:37 | US ---
Date of procedure: 08/21/2016 Procedure: Ultrasound guidance for vascular access HISTORY: Infection requiring long-term IV antibiotics TECHNIQUE: Following informed consent and procedure time-out, the patient placed supine on the interventional table and the right arm prepped and draped in the usual sterile fashion. Ultrasound showed a patent and compressible basilic vein. After the skin was anesthetized with lidocaine, the basilic vein was accessed with micro micropuncture technique using ultrasound guidance. An image documenting ultrasound guidance for vascular access was permanently saved. IMPRESSION: Ultrasound guidance for vascular access for placement of PICC.
[2016-08-24] MEDS: Enoxaparin 30 mg Syringe SC SCH (10:04)
--- NOTE | 2016-08-24 12:43 | CP.PCM.PN ---
Subjective - Date & Time of Evaluation Date of Evaluation: 08/24/16 Time of Evaluation: 12:50 - Subjective Subjective: Patient seen . Still coughing , with hoarseness. Still on Iv antibiotics--Azithromycin and Tygacil. Objective - Vital Signs/Intake and Output Vital Signs (last 24 hours): Temp Pulse Resp BP Pulse Ox 98.2 F 96 H 20 164/88 H 96 08/24/16 08:02 08/24/16 08:02 08/24/16 08:02 08/24/16 08:02 08/24/16 08:02 Intake and Output: 08/24/16 08/24/16 06:59 18:59 Intake Total 340 Balance 340 - Medications Medications: Current Medications Albuterol/Ipratropium (Duoneb 3 Mg/0.5 Mg (3 Ml) Ud) 3 ml INH RQ8 [facility] Last Admin: 08/24/16 08:00 Dose: 3 ml Budesonide (Pulmicort Respules) 0.5 mg INH RQ12 [facility] Last Admin: 08/24/16 08:00 Dose: 0.5 mg Enoxaparin Sodium (Lovenox) 30 mg SC DAILY [facility] Last Admin: 08/23/16 09:52 Dose: Not Given Home Med (Patient's Own Medication) 1 tab PO Q12H [facility] Last Admin: 08/23/16 18:11 Dose: 1 tab Home Med (Patient's Own Medication) 1 tab PO DAILY [facility] Last Admin: 08/24/16 09:16 Dose: 1 tab Tigecycline 50 mg/ Sodium (Chloride) 100 mls @ 100 mls/hr IVPB Q12H [facility] Last Admin: 08/24/16 01:55 Dose: 100 mls/hr Azithromycin 500 mg/ Sodium (Chloride) 250 mls @ 250 mls/hr IVPB Q24H [facility] Last Admin: 08/23/16 22:16 Dose: 250 mls/hr Methylprednisolone (Solu-Medrol) 20 mg IVP Q12 [facility] Last Admin: 08/24/16 09:22 Dose: 20 mg Nystatin (Nystatin Oral Susp) 5 ml PO QID [facility] Last Admin: 08/24/16 09:23 Dose: 5 ml Pantoprazole Sodium (Protonix Inj) 40 mg IVP DAILY [facility] Last Admin: 08/24/16 09:21 Dose: 40 mg Promethazine HCl/Codeine (Phenergan/Codeine Oral Syrup) 5 ml PO Q6H [facility] Last Admin: 08/24/16 11:26 Dose: 5 ml - Labs Labs: 08/22/16 09:32 08/21/16 07:01 - Constitutional Appears: No Acute Distress - Head Exam Head Exam: ATRAUMATIC, NORMAL INSPECTION, NORMOCEPHALIC - Eye Exam Pupil Exam: PERRL - ENT Exam ENT Exam: Normal External Ear Exam - Neck Exam Neck Exam: Full ROM - Respiratory Exam Respiratory Exam: Rhonchi, NORMAL BREATHING PATTERN - Cardiovascular Exam Cardiovascular Exam: REGULAR RHYTHM, +S1, +S2 - GI/Abdominal Exam GI & Abdominal Exam: Soft, Normal Bowel Sounds - Rectal Exam Rectal Exam: Deferred - Extremities Exam Extremities Exam: Full ROM, Normal Inspection - Back Exam Back Exam: CVA tenderness (L) - Neurological Exam Neurological Exam: Alert, Awake, Oriented x3 - Skin Skin Exam: Dry, Intact, Normal Color, Warm Assessment and Plan (1) Pneumonia Status: Resolved (2) Bronchitis Status: Acute (3) Hypertension Status: Chronic (4) Cholelithiasis Status: Chronic (5) Thyroid nodule Status: Chronic (6) Sputum culture positive for ESBL E. coli Status: Acute - Assessment and Plan (Free Text) Plan: plan: Continue IV antibiotics, and solumedrol. Respiratory sup[port with nebulizers.
--- NOTE | 2016-08-24 12:49 | CP.PCM.PN ---
Objective - Vital Signs/Intake and Output Vital Signs (last 24 hours): Temp Pulse Resp BP Pulse Ox 98.2 F 96 H 20 164/88 H 96 08/24/16 08:02 08/24/16 08:02 08/24/16 08:02 08/24/16 08:02 08/24/16 08:02 Intake and Output: 08/24/16 08/24/16 06:59 18:59 Intake Total 340 Balance 340 - Medications Medications: Current Medications Albuterol/Ipratropium (Duoneb 3 Mg/0.5 Mg (3 Ml) Ud) 3 ml INH RQ8 [facility] Last Admin: 08/24/16 08:00 Dose: 3 ml Budesonide (Pulmicort Respules) 0.5 mg INH RQ12 [facility] Last Admin: 08/24/16 08:00 Dose: 0.5 mg Enoxaparin Sodium (Lovenox) 30 mg SC DAILY [facility] Last Admin: 08/23/16 09:52 Dose: Not Given Home Med (Patient's Own Medication) 1 tab PO Q12H [facility] Last Admin: 08/23/16 18:11 Dose: 1 tab Home Med (Patient's Own Medication) 1 tab PO DAILY [facility] Last Admin: 08/24/16 09:16 Dose: 1 tab Tigecycline 50 mg/ Sodium (Chloride) 100 mls @ 100 mls/hr IVPB Q12H [facility] Last Admin: 08/24/16 01:55 Dose: 100 mls/hr Azithromycin 500 mg/ Sodium (Chloride) 250 mls @ 250 mls/hr IVPB Q24H [facility] Last Admin: 08/23/16 22:16 Dose: 250 mls/hr Methylprednisolone (Solu-Medrol) 20 mg IVP Q12 [facility] Last Admin: 08/24/16 09:22 Dose: 20 mg Nystatin (Nystatin Oral Susp) 5 ml PO QID [facility] Last Admin: 08/24/16 09:23 Dose: 5 ml Pantoprazole Sodium (Protonix Inj) 40 mg IVP DAILY [facility] Last Admin: 08/24/16 09:21 Dose: 40 mg Promethazine HCl/Codeine (Phenergan/Codeine Oral Syrup) 5 ml PO Q6H [facility] Last Admin: 08/24/16 11:26 Dose: 5 ml - Labs Labs: 08/22/16 09:32 08/21/16 07:01 Assessment and Plan (1) Pneumonia Status: Resolved (2) Bronchitis Status: Acute (3) Hypertension Status: Chronic (4) Cholelithiasis Status: Chronic (5) Thyroid nodule Status: Chronic (6) Sputum culture positive for ESBL E. coli Status: Acute
[2016-08-24 13:16] LABS: BASO % 0.1 % (0.0-2.0); LYMPH # 0.6 K/uL (1.0-4.3); LYMPH % 4.1 % (20.0-40.0); MEAN CELL VOLUME 89.4 fL (81.0-99.0); MEAN CORPUSCULAR HEMOGLOBIN 29.4 pg (27.0-31.0); MEAN CORPUSCULAR HGB CONC 32.8 g/dL (33.0-37.0); MEAN PLATELET VOLUME 6.7 fL (7.2-11.7); MONO # 0.4 K/uL (0.0-0.8); MONO % 2.5 % (0.0-10.0); PLATELET COUNT 450 K/uL (130-400); RED CELL DISTRIBUTION WIDTH 13.2 % (11.5-14.5); WHITE BLOOD COUNT 14.5 K/uL (4.8-10.8)
[2016-08-24 13:31] LABS: CHLORIDE 95 mmol/L (98-107)
[2016-08-24 13:32] LABS: POTASSIUM 4.1 mmol/L (3.6-5.2); SODIUM 129 mmol/L (132-148)
[2016-08-24 13:34] LABS: ALB/GLOB RATIO 0.9 (1.0-2.1); AST/SGOT 20 U/L (14-36); BILIRUBIN,TOTAL 0.6 mg/dL (0.2-1.3); BLOOD UREA NITROGEN 53 mg/dL (7-17); CARBON DIOXIDE 23 mmol/L (22-30); GFR AFRICAN-AMERICAN > 60; TOTAL PROTEIN 6.1 g/dL (6.3-8.3)
[2016-08-24 13:35] LABS: ALKALINE PHOSPHATASE 59 U/L (38-126); ALT/SGPT 29 U/L (9-52); CALCIUM 8.1 mg/dl (8.6-10.4); GLUCOSE,RANDOM 165 mg/dL (65-105)
[2016-08-24 14:17] LABS: NEUTROPHIL 94 % (50-75); TOTAL CELLS COUNTED 100
--- NOTE | 2016-08-24 16:09 | CP.PCM.PN ---
Subjective - Date & Time of Evaluation Date of Evaluation: 08/24/16 Time of Evaluation: 10:00 - Subjective Subjective: Patient seen and examined. Cough and breathing improved but still complaining of hoarseness or voice Denies fever or chills, complaining of chest discomfort on coughing Objective - Vital Signs/Intake and Output Vital Signs (last 24 hours): Temp Pulse Resp BP Pulse Ox 98.2 F 96 H 20 164/88 H 96 08/24/16 08:02 08/24/16 08:02 08/24/16 08:02 08/24/16 08:02 08/24/16 08:02 Intake and Output: 08/24/16 08/24/16 06:59 18:59 Intake Total 340 960 Balance 340 960 - Medications Medications: Current Medications Albuterol/Ipratropium (Duoneb 3 Mg/0.5 Mg (3 Ml) Ud) 3 ml INH RQ8 [facility] Last Admin: 08/24/16 15:57 Dose: 3 ml Budesonide (Pulmicort Respules) 0.5 mg INH RQ12 [facility] Last Admin: 08/24/16 08:00 Dose: 0.5 mg Enoxaparin Sodium (Lovenox) 30 mg SC DAILY [facility] Last Admin: 08/23/16 09:52 Dose: Not Given Home Med (Patient's Own Medication) 1 tab PO Q12H [facility] Last Admin: 08/23/16 18:11 Dose: 1 tab Home Med (Patient's Own Medication) 1 tab PO DAILY [facility] Last Admin: 08/24/16 09:16 Dose: 1 tab Tigecycline 50 mg/ Sodium (Chloride) 100 mls @ 100 mls/hr IVPB Q12H [facility] Last Admin: 08/24/16 14:04 Dose: 100 mls/hr Azithromycin 500 mg/ Sodium (Chloride) 250 mls @ 250 mls/hr IVPB Q24H [facility] Last Admin: 08/23/16 22:16 Dose: 250 mls/hr Methylprednisolone (Solu-Medrol) 20 mg IVP Q12 [facility] Last Admin: 08/24/16 09:22 Dose: 20 mg Nystatin (Nystatin Oral Susp) 5 ml PO QID [facility] Last Admin: 08/24/16 14:03 Dose: 5 ml Pantoprazole Sodium (Protonix Inj) 40 mg IVP DAILY [facility] Last Admin: 08/24/16 09:21 Dose: 40 mg Promethazine HCl/Codeine (Phenergan/Codeine Oral Syrup) 5 ml PO Q6H [facility] Last Admin: 08/24/16 11:26 Dose: 5 ml - Labs Labs: 08/24/16 13:11 08/24/16 13:11 - Constitutional Appears: No Acute Distress - Head Exam Head Exam: ATRAUMATIC, NORMOCEPHALIC - Eye Exam Eye Exam: Normal appearance - ENT Exam ENT Exam: Mucous Membranes Moist - Neck Exam Neck Exam: Normal Inspection - Respiratory Exam Respiratory Exam: Rhonchi - Cardiovascular Exam Cardiovascular Exam: REGULAR RHYTHM - GI/Abdominal Exam GI & Abdominal Exam: Soft, Normal Bowel Sounds - Extremities Exam Extremities Exam: Normal Inspection - Neurological Exam Neurological Exam: Alert, Oriented x3 Assessment and Plan (1) Sputum culture positive for ESBL E. coli Assessment & Plan: Continue antibiotics Change IV Solu-Medrol to by mouth Prednisone Continue nebulizer treatment for now Status: Acute (2) Cough Status: Acute
[2016-08-24] MEDS: Patient's Own Medication - Tablet/Capusle PO SCH (18:08)
[2016-08-24] MEDS: Azithromycin 500 MG in Sodium Chloride 0.9% 250 ML IVPB SCH (22:10)
--- NOTE | 2016-08-24 22:30 | CP.PCM.PN ---
Subjective - Date & Time of Evaluation Date of Evaluation: 08/24/16 Time of Evaluation: 22:29 - Subjective Subjective: AFEBRILE, STILL WITH COUGH. LESS WHEEZING. LESS SHORT OF BREATH SECRETIONS LESS THICK PER PATIENT AND LOOSENING UP. LAB ; NA 129 CREAT1.1/BUN 53 WBC 14.5 -? STEROIDS Objective - Vital Signs/Intake and Output Vital Signs (last 24 hours): Temp Pulse Resp BP Pulse Ox 98.2 F 96 H 20 164/88 H 96 08/24/16 08:02 08/24/16 08:02 08/24/16 08:02 08/24/16 08:02 08/24/16 08:02 Intake and Output: 08/24/16 08/25/16 18:59 06:59 Intake Total 960 Balance 960 - Medications Medications: Current Medications Albuterol/Ipratropium (Duoneb 3 Mg/0.5 Mg (3 Ml) Ud) 3 ml INH RQ8 [facility] Last Admin: 08/24/16 15:57 Dose: 3 ml Budesonide (Pulmicort Respules) 0.5 mg INH RQ12 [facility] Last Admin: 08/24/16 20:02 Dose: 0.5 mg Enoxaparin Sodium (Lovenox) 30 mg SC DAILY [facility] Last Admin: 08/23/16 09:52 Dose: Not Given Home Med (Patient's Own Medication) 1 tab PO Q12H [facility] Last Admin: 08/24/16 18:08 Dose: 1 tab Home Med (Patient's Own Medication) 1 tab PO DAILY [facility] Last Admin: 08/24/16 09:16 Dose: 1 tab Tigecycline 50 mg/ Sodium (Chloride) 100 mls @ 100 mls/hr IVPB Q12H [facility] Last Admin: 08/24/16 14:04 Dose: 100 mls/hr Azithromycin 500 mg/ Sodium (Chloride) 250 mls @ 250 mls/hr IVPB Q24H [facility] Last Admin: 08/24/16 22:10 Dose: 250 mls/hr Methylprednisolone (Solu-Medrol) 20 mg IVP Q12 [facility] Last Admin: 08/24/16 22:09 Dose: 20 mg Nystatin (Nystatin Oral Susp) 5 ml PO QID [facility] Last Admin: 08/24/16 22:09 Dose: 5 ml Pantoprazole Sodium (Protonix Ec Tab) 40 mg PO DAILY [facility] Promethazine HCl/Codeine (Phenergan/Codeine Oral Syrup) 5 ml PO Q6H [facility] Last Admin: 08/24/16 17:34 Dose: 5 ml - Labs Labs: 08/24/16 13:11 08/24/16 13:11 - Constitutional Appears: No Acute Distress - Head Exam Head Exam: NORMAL INSPECTION - Eye Exam Eye Exam: EOMI, PERRL - ENT Exam ENT Exam: Normal Oropharynx - Neck Exam Neck Exam: Normal Inspection - Respiratory Exam Respiratory Exam: Rhonchi, Wheezes - GI/Abdominal Exam GI & Abdominal Exam: Soft, Normal Bowel Sounds - Extremities Exam Extremities Exam: Normal Capillary Refill. absent: Calf Tenderness, Pedal Edema - Neurological Exam Neurological Exam: Awake, CN II-XII Intact, Oriented x3, Reflexes Normal - Psychiatric Exam Psychiatric exam: Normal Mood - Skin Skin Exam: Normal Color, Warm Assessment and Plan (1) Pneumonia Status: Resolved (2) Sputum culture positive for ESBL E. coli Status: Acute (3) Cough Status: Acute (4) Hypertension Status: Chronic (5) Thyroid nodule Status: Chronic - Assessment and Plan (Free Text) Plan: CONTINUE iv TYGACIL 100 MG LOADING DOSE,.08/20/16 F/U TYGACIL 50 MG EVERY 12 HOURLY FOR NOW-DAY 5 ON ZITHROMAX 500 MG ONCE A DAY DAILY 08/20/16 X 5DAYS CONTINUE iv SOLU-MEDROL 40 MG EVERY 8 HOURLY PER PULMONARY 08/18 F/U PERTUSSIS SEROLOGY- PENDING. WATCH RENAL FUNCTIONS PT TO GET TDAP VACCINATION BEFORE D/C. PULMONARY TOILET. RESPIRATORY /CONTACT PRECAUTIONS.
[2016-08-25] MEDS: Albuterol-Ipratrop 3 mg / 0.5 (3 ml) UD INH SCH ×3 (00:40→15:52)
[2016-08-25] MEDS: Promethazine/Cod 6.25mg-10mg/5ml Syr UD PO SCH ×4 (05:49→23:45)
[2016-08-25] MEDS: Patient's Own Medication - Tablet/Capusle PO SCH ×2 (05:49→18:04)
[2016-08-25] MEDS: Budesonide 0.5 mg/2 ml Inhal Susp UD INH SCH ×2 (09:05→19:54)
[2016-08-25] MEDS: MULTIVITAMIN PO SCH (09:28)
[2016-08-25] MEDS: [UNRECOGNIZED DRUG - OTHER] PO SCH (09:28)
[2016-08-25] MEDS: MethylPREDNISolone 40 mg Vial IVP SCH ×2 (09:29→22:22)
[2016-08-25] MEDS: Pantoprazole 40 mg EC Tab PO SCH (09:30)
[2016-08-25] MEDS: Nystatin 100,000 Units/ml Oral Susp 5 ml UD PO SCH ×4 (09:30→22:20)
[2016-08-25] MEDS: Enoxaparin 30 mg Syringe SC SCH (09:33)
--- NOTE | 2016-08-25 10:38 | NM ---
PROCEDURE: Nuclear medicine thyroid scan. HISTORY: Thyroid nodules COMPARISON: 08/19/2016. TECHNIQUE: uCi of the iodine 123 was administered orally. Frontal and oblique planar images of the thyroid gland were obtained. FINDINGS: Symmetric uptake of tracer was seen in the thyroid gland. No focal hot or cold nodule was identified. The 24 hr thyroid uptake was 1.9 % (normal range 15-35%). IMPRESSION: 1. No hot or cold nodule identified. 2. Abnormal/depressed 24 hr RAIU of 1.9%.
--- NOTE | 2016-08-25 10:43 | CP.PCM.PN ---
Subjective - Date & Time of Evaluation Date of Evaluation: 08/25/16 Time of Evaluation: 10:40 - Subjective Subjective: Still with cough. altough getting lesser. Less SOB. Phlegm is lesser. However WBC count is higher today at 14,50 Thyroid scan and KURT uptake finished today.Urine C/S was normal. Will do panculture again and repeat chest x-ray today. Objective - Vital Signs/Intake and Output Vital Signs (last 24 hours): Temp Pulse Resp BP Pulse Ox 98 F 84 20 153/94 H 97 08/25/16 09:28 08/25/16 09:28 08/25/16 09:28 08/25/16 09:28 08/25/16 09:28 Intake and Output: 08/25/16 08/25/16 06:59 18:59 Intake Total 660 Balance 660 - Medications Medications: Current Medications Albuterol/Ipratropium (Duoneb 3 Mg/0.5 Mg (3 Ml) Ud) 3 ml INH RQ8 [facility] Last Admin: 08/25/16 09:05 Dose: 3 ml Budesonide (Pulmicort Respules) 0.5 mg INH RQ12 [facility] Last Admin: 08/25/16 09:05 Dose: 0.5 mg Enoxaparin Sodium (Lovenox) 30 mg SC DAILY [facility] Last Admin: 08/25/16 09:33 Dose: Not Given Home Med (Patient's Own Medication) 1 tab PO Q12H [facility] Last Admin: 08/25/16 05:49 Dose: 1 tab Home Med (Patient's Own Medication) 1 tab PO DAILY [facility] Last Admin: 08/25/16 09:28 Dose: 1 tab Tigecycline 50 mg/ Sodium (Chloride) 100 mls @ 100 mls/hr IVPB Q12H [facility] Last Admin: 08/25/16 02:19 Dose: 100 mls/hr Azithromycin 500 mg/ Sodium (Chloride) 250 mls @ 250 mls/hr IVPB Q24H [facility] Last Admin: 08/24/16 22:10 Dose: 250 mls/hr Methylprednisolone (Solu-Medrol) 20 mg IVP Q12 [facility] Last Admin: 08/25/16 09:29 Dose: 20 mg Nystatin (Nystatin Oral Susp) 5 ml PO QID [facility] Last Admin: 08/25/16 09:30 Dose: 5 ml Pantoprazole Sodium (Protonix Ec Tab) 40 mg PO DAILY [facility] Last Admin: 08/25/16 09:30 Dose: 40 mg Promethazine HCl/Codeine (Phenergan/Codeine Oral Syrup) 5 ml PO Q6H [facility] Last Admin: 08/25/16 05:49 Dose: 5 ml - Labs Labs: 08/24/16 13:11 08/24/16 13:11 - Constitutional Appears: Well, No Acute Distress - Head Exam Head Exam: ATRAUMATIC, NORMAL INSPECTION, NORMOCEPHALIC - Eye Exam Pupil Exam: PERRL - Respiratory Exam Respiratory Exam: Rhonchi, NORMAL BREATHING PATTERN Additional comments: Occasional wheeze. - Cardiovascular Exam Cardiovascular Exam: REGULAR RHYTHM, +S1, +S2 - GI/Abdominal Exam GI & Abdominal Exam: Soft - Rectal Exam Rectal Exam: Deferred - Extremities Exam Extremities Exam: Full ROM, Normal Inspection - Back Exam Back Exam: NORMAL INSPECTION - Psychiatric Exam Psychiatric exam: Normal Affect, Normal Mood - Skin Skin Exam: Dry, Intact, Normal Color Assessment and Plan (1) Pneumonia Status: Resolved (2) Bronchitis Status: Acute (3) Hypertension Status: Chronic (4) Cholelithiasis Status: Chronic (5) Thyroid nodule Status: Chronic (6) Sputum culture positive for ESBL E. coli Status: Acute - Assessment and Plan (Free Text) Plan: Plan: Continue IV Tygacil. Azithromycin X 1 more day toiday and D/C in AM. Nebulizer. Continue IV Soliumedroal. Chest X-ray and repeat sputum culture.
--- NOTE | 2016-08-25 11:43 | CP.PCM.PN ---
Subjective - Date & Time of Evaluation Date of Evaluation: 08/25/16 Time of Evaluation: 11:43 - Subjective Subjective: AFEBRILE ON PULMONARY TREATMENTS. STILL SYMPTOMATIC WITH COUGH SPASMS +VE THICK SECRETIONS MRSA NOT DETECTED. Objective - Vital Signs/Intake and Output Vital Signs (last 24 hours): Temp Pulse Resp BP Pulse Ox 98 F 84 20 153/94 H 97 08/25/16 09:28 08/25/16 09:28 08/25/16 09:28 08/25/16 09:28 08/25/16 09:28 Intake and Output: 08/25/16 08/25/16 06:59 18:59 Intake Total 660 Balance 660 - Medications Medications: Current Medications Albuterol/Ipratropium (Duoneb 3 Mg/0.5 Mg (3 Ml) Ud) 3 ml INH RQ8 [facility] Last Admin: 08/25/16 09:05 Dose: 3 ml Budesonide (Pulmicort Respules) 0.5 mg INH RQ12 [facility] Last Admin: 08/25/16 09:05 Dose: 0.5 mg Enoxaparin Sodium (Lovenox) 30 mg SC DAILY [facility] Last Admin: 08/25/16 09:33 Dose: Not Given Home Med (Patient's Own Medication) 1 tab PO Q12H [facility] Last Admin: 08/25/16 05:49 Dose: 1 tab Home Med (Patient's Own Medication) 1 tab PO DAILY [facility] Last Admin: 08/25/16 09:28 Dose: 1 tab Tigecycline 50 mg/ Sodium (Chloride) 100 mls @ 100 mls/hr IVPB Q12H [facility] Last Admin: 08/25/16 02:19 Dose: 100 mls/hr Azithromycin 500 mg/ Sodium (Chloride) 250 mls @ 250 mls/hr IVPB Q24H [facility] Last Admin: 08/24/16 22:10 Dose: 250 mls/hr Methylprednisolone (Solu-Medrol) 20 mg IVP Q12 [facility] Last Admin: 08/25/16 09:29 Dose: 20 mg Nystatin (Nystatin Oral Susp) 5 ml PO QID [facility] Last Admin: 08/25/16 09:30 Dose: 5 ml Pantoprazole Sodium (Protonix Ec Tab) 40 mg PO DAILY [facility] Last Admin: 08/25/16 09:30 Dose: 40 mg Promethazine HCl/Codeine (Phenergan/Codeine Oral Syrup) 5 ml PO Q6H [facility] Last Admin: 08/25/16 05:49 Dose: 5 ml - Labs Labs: 08/24/16 13:11 08/24/16 13:11 - Constitutional Appears: No Acute Distress - Head Exam Head Exam: NORMAL INSPECTION - Eye Exam Eye Exam: EOMI, PERRL - ENT Exam ENT Exam: Normal Oropharynx - Neck Exam Neck Exam: Normal Inspection - Respiratory Exam Respiratory Exam: Rhonchi, Wheezes (LESS EXPIRATORY WHEEZE.) - Cardiovascular Exam Cardiovascular Exam: REGULAR RHYTHM, +S1, +S2 - GI/Abdominal Exam GI & Abdominal Exam: Soft, Normal Bowel Sounds. absent: Organomegaly - Extremities Exam Extremities Exam: Normal Capillary Refill. absent: Calf Tenderness, Pedal Edema - Neurological Exam Neurological Exam: Alert, Awake, CN II-XII Intact, Normal Gait, Oriented x3, Reflexes Normal - Psychiatric Exam Psychiatric exam: Normal Mood - Skin Skin Exam: Normal Color, Warm Assessment and Plan (1) Pneumonia Status: Resolved (2) Sputum culture positive for ESBL E. coli Status: Acute (3) Cough Status: Acute (4) Hypertension Status: Chronic (5) Thyroid nodule Status: Chronic - Assessment and Plan (Free Text) Plan: CONTINUE iv TYGACIL 100 MG LOADING DOSE,.08/20/16 F/U TYGACIL 50 MG EVERY 12 HOURLY FOR NOW-DAY 6 ON ZITHROMAX 500 MG ONCE A DAY DAILY 08/20/16 X 5DAYS- DC IN AM CONTINUE iv SOLU-MEDROL 40 MG EVERY 8 HOURLY PER PULMONARY 08/18 F/U PERTUSSIS SEROLOGY- PENDING. WATCH RENAL FUNCTIONS PT TO GET TDAP VACCINATION BEFORE D/C. PULMONARY TOILET. RESPIRATORY /CONTACT PRECAUTIONS.
--- NOTE | 2016-08-25 12:33 | RAD ---
HISTORY: Chronic cough COMPARISON: Chest x-ray performed 08/14/16 TECHNIQUE: Chest PA and lateral FINDINGS: Right-sided PICC extends to the SVC. LUNGS: No focal consolidation. Please note that chest x-ray has limited sensitivity for the detection of pulmonary masses. PLEURA: No significant pleural effusion identified. No definite pneumothorax . CARDIOVASCULAR: Heart size appears within normal limits. Atherosclerotic calcifications of the aortic knob. OSSEOUS STRUCTURES: Degenerative changes of the spine. VISUALIZED UPPER ABDOMEN: Unremarkable. OTHER FINDINGS: Left axillary clips. IMPRESSION: Right-sided PICC extends expected location of the SVC.
--- NOTE | 2016-08-25 18:23 | CP.PCM.PN ---
Objective - Vital Signs/Intake and Output Vital Signs (last 24 hours): Temp Pulse Resp BP Pulse Ox 97.9 F 89 20 144/84 95 08/25/16 15:00 08/25/16 15:00 08/25/16 15:00 08/25/16 15:00 08/25/16 15:00 Intake and Output: 08/25/16 08/25/16 06:59 18:59 Intake Total 660 800 Balance 660 800 - Medications Medications: Current Medications Albuterol/Ipratropium (Duoneb 3 Mg/0.5 Mg (3 Ml) Ud) 3 ml INH RQ8 [facility] Last Admin: 08/25/16 15:52 Dose: 3 ml Budesonide (Pulmicort Respules) 0.5 mg INH RQ12 [facility] Last Admin: 08/25/16 09:05 Dose: 0.5 mg Enoxaparin Sodium (Lovenox) 30 mg SC DAILY [facility] Last Admin: 08/25/16 09:33 Dose: Not Given Home Med (Patient's Own Medication) 1 tab PO Q12H [facility] Last Admin: 08/25/16 18:04 Dose: 1 tab Home Med (Patient's Own Medication) 1 tab PO DAILY [facility] Last Admin: 08/25/16 09:28 Dose: 1 tab Tigecycline 50 mg/ Sodium (Chloride) 100 mls @ 100 mls/hr IVPB Q12H [facility] Last Admin: 08/25/16 13:31 Dose: 100 mls/hr Azithromycin 500 mg/ Sodium (Chloride) 250 mls @ 250 mls/hr IVPB Q24H [facility] Last Admin: 08/24/16 22:10 Dose: 250 mls/hr Methylprednisolone (Solu-Medrol) 20 mg IVP Q12 [facility] Last Admin: 08/25/16 09:29 Dose: 20 mg Nystatin (Nystatin Oral Susp) 5 ml PO QID [facility] Last Admin: 08/25/16 18:03 Dose: 5 ml Pantoprazole Sodium (Protonix Ec Tab) 40 mg PO DAILY [facility] Last Admin: 08/25/16 09:30 Dose: 40 mg Promethazine HCl/Codeine (Phenergan/Codeine Oral Syrup) 5 ml PO Q6H [facility] Last Admin: 08/25/16 17:34 Dose: 5 ml - Labs Labs: 08/24/16 13:11 08/24/16 13:11 Assessment and Plan (1) Sputum culture positive for ESBL E. coli Status: Acute (2) Cough Status: Acute
[2016-08-25] MEDS: Azithromycin 500 MG in Sodium Chloride 0.9% 250 ML IVPB SCH (22:21)
[2016-08-26] MEDS: Albuterol-Ipratrop 3 mg / 0.5 (3 ml) UD INH SCH ×2 (00:50→08:02)
[2016-08-26] MEDS: Promethazine/Cod 6.25mg-10mg/5ml Syr UD PO SCH ×4 (05:25→23:40)
[2016-08-26] MEDS: Patient's Own Medication - Tablet/Capusle PO SCH ×2 (06:14→17:32)
[2016-08-26] MEDS: Budesonide 0.5 mg/2 ml Inhal Susp UD INH SCH ×2 (08:02→20:05)
[2016-08-26] MEDS: [UNRECOGNIZED DRUG - OTHER] PO SCH (09:37)
[2016-08-26] MEDS: MULTIVITAMIN PO SCH (09:37)
[2016-08-26] MEDS: Pantoprazole 40 mg EC Tab PO SCH (09:38)
[2016-08-26] MEDS: MethylPREDNISolone 40 mg Vial IVP SCH (09:39)
[2016-08-26] MEDS: Nystatin 100,000 Units/ml Oral Susp 5 ml UD PO SCH ×4 (09:39→22:11)
[2016-08-26] MEDS: Enoxaparin 30 mg Syringe SC SCH (10:36)
--- NOTE | 2016-08-26 10:44 | CP.PCM.PN ---
<Fabi Saxena - Last Filed: 08/26/16 10:38> Subjective - Date & Time of Evaluation Date of Evaluation: 08/26/16 Time of Evaluation: 10:38 - Subjective Subjective: House Doctor Note Code Star Time: 10:22 AM Patient is a 61 year old female with history of hypertension admitted for likely acute bronchitis and ESBL+ sputum. Patient was having a BM this morning and suddenly became dizzy while sitting on the toilet. When she went to get up, patient fell forward and thinks she may have hit her face on the edge of the toilet seat. She reports mild pain to her malar cheek. Patient denies pain to other areas of her body including hips, back, buttocks. She states her condition feels improved and she is no longer dizzy or lightheaded. Initial Vitals: BP: 155/104, Pulse 94, Oxygen saturation 96%, Temp 98F, Glucose 118 X-ray of facial bones and Head CT without contrast ordered stat. Will order orthostatic vitals to be performed. Objective - Vital Signs/Intake and Output Vital Signs (last 24 hours): Temp Pulse Resp BP Pulse Ox 98.2 F 109 H 20 169/113 H 96 08/26/16 08:23 08/26/16 08:23 08/26/16 08:23 08/26/16 08:23 08/26/16 08:23 Intake and Output: 08/26/16 08/26/16 06:59 18:59 Intake Total 350 Balance 350 - Medications Medications: Current Medications Albuterol/Ipratropium (Duoneb 3 Mg/0.5 Mg (3 Ml) Ud) 3 ml INH RQ8 [facility] Last Admin: 08/26/16 08:02 Dose: 3 ml Budesonide (Pulmicort Respules) 0.5 mg INH RQ12 [facility] Last Admin: 08/26/16 08:02 Dose: 0.5 mg Enoxaparin Sodium (Lovenox) 30 mg SC DAILY [facility] Last Admin: 08/26/16 10:36 Dose: Not Given Home Med (Patient's Own Medication) 1 tab PO Q12H [facility] Last Admin: 08/26/16 06:14 Dose: 1 tab Home Med (Patient's Own Medication) 1 tab PO DAILY [facility] Last Admin: 08/26/16 09:37 Dose: 1 tab Tigecycline 50 mg/ Sodium (Chloride) 100 mls @ 100 mls/hr IVPB Q12H [facility] Last Admin: 08/26/16 02:00 Dose: 100 mls/hr Azithromycin 500 mg/ Sodium (Chloride) 250 mls @ 250 mls/hr IVPB Q24H [facility] Last Admin: 08/25/16 22:21 Dose: 250 mls/hr Methylprednisolone (Solu-Medrol) 20 mg IVP Q12 [facility] Last Admin: 08/26/16 09:39 Dose: 20 mg Nystatin (Nystatin Oral Susp) 5 ml PO QID [facility] Last Admin: 08/26/16 09:39 Dose: 5 ml Pantoprazole Sodium (Protonix Ec Tab) 40 mg PO DAILY [facility] Last Admin: 08/26/16 09:38 Dose: 40 mg Promethazine HCl/Codeine (Phenergan/Codeine Oral Syrup) 5 ml PO Q6H [facility] Last Admin: 08/26/16 05:25 Dose: 5 ml - Labs Labs: 08/24/16 13:11 08/24/16 13:11 - Constitutional Appears: Non-toxic, No Acute Distress - Head Exam Head Exam: NORMAL INSPECTION, NORMOCEPHALIC. absent: ATRAUMATIC Additional comments: mild erythema to right maxillary cheek - Eye Exam Eye Exam: EOMI, Normal appearance - ENT Exam ENT Exam: Mucous Membranes Moist - Respiratory Exam Respiratory Exam: Wheezes. absent: Clear to Ausculation Bilateral - Cardiovascular Exam Cardiovascular Exam: Tachycardia, +S1, +S2 - Extremities Exam Extremities Exam: Normal Inspection - Back Exam Back Exam: NORMAL INSPECTION - Neurological Exam Neurological Exam: Alert, Awake, CN II-XII Intact, Oriented x3 <Florence Olsen - Last Filed: 09/06/16 11:39> Subjective - Subjective Subjective: Addendum: parient was seen and examined by me. States tried to stand from the toilet seat and and felt woozy and fell hittine the maxillarry area at the right. Onexam, the maxillary area at right was erythematous, and slightly swollwn. with slight p[ain on palpation. No NEED for head CAT scan at this time.or othostatic monitoring. Objective - Vital Signs/Intake and Output Vital Signs (last 24 hours): Temp Pulse Resp BP Pulse Ox 98.4 F 85 20 137/85 98 09/06/16 07:56 09/06/16 07:56 09/06/16 07:56 09/06/16 00:00 09/06/16 07:56 Intake and Output: 09/06/16 09/06/16 06:59 18:59 Intake Total 850 Balance 850 - Medications Medications: Current Medications Amlodipine Besylate (Norvasc) 5 mg PO DAILY [facility] Last Admin: 09/06/16 10:12 Dose: 5 mg Diphenhydramine HCl (Benadryl) 25 mg PO Q6 PRN PRN Reason: Allergy symptoms Last Admin: 09/06/16 10:10 Dose: 25 mg Home Med (Patient's Own Medication) 1 tab PO Q12H [facility] Last Admin: 09/06/16 05:28 Dose: 1 tab Home Med (Patient's Own Medication) 1 tab PO DAILY [facility] Last Admin: 09/06/16 10:13 Dose: 1 tab Meropenem 500 mg/ Sodium (Chloride) 100 mls @ 100 mls/hr IVPB Q8 [facility] Last Admin: 09/05/16 22:17 Dose: 100 mls/hr Azithromycin 500 mg/ Sodium (Chloride) 250 mls @ 167 mls/hr IVPB Q24H [facility] Last Admin: 09/05/16 20:50 Dose: 167 mls/hr Multivitamins (Hexavitamin) 1 tab PO DAILY [facility] Last Admin: 09/06/16 10:12 Dose: 1 tab Nystatin (Nystatin Oral Susp) 5 ml PO QID [facility] Last Admin: 09/06/16 10:12 Dose: 5 ml Pantoprazole Sodium (Protonix Ec Tab) 40 mg PO DAILY [facility] Last Admin: 09/06/16 10:12 Dose: 40 mg Potassium Chloride (K-Dur 20 Meq Er Tab) 20 meq PO DAILY [facility] Last Admin: 09/06/16 10:11 Dose: 20 meq Prednisone (Prednisone Tab) 10 mg PO DAILY [facility] Last Admin: 09/06/16 10:12 Dose: 10 mg Promethazine HCl/Codeine (Phenergan/Codeine Oral Syrup) 5 ml PO Q6 PRN PRN Reason: Cough Last Admin: 09/05/16 22:17 Dose: 5 ml - Labs Labs: 09/06/16 07:00 06/22/17 11:42 Assessment and Plan (1) Pneumonia Status: Resolved (2) Bronchitis Status: Acute (3) Hypertension Status: Chronic (4) Cholelithiasis Status: Ruled-out (5) Thyroid nodule Status: Chronic (6) Sputum culture positive for ESBL E. coli Status: Acute (7) Pseudomonas aeruginosa infection Status: Acute (8) Maxillary sinusitis, chronic Status: Chronic (9) Chronic ethmoidal sinusitis Status: Chronic (10) B. pertussis Status: Acute
--- NOTE | 2016-08-26 11:32 | CP.PCM.PN ---
Subjective - Date & Time of Evaluation Date of Evaluation: 08/26/16 Time of Evaluation: 11:25 - Subjective Subjective: Afebrile. Patient claims that whenever she has the respiratory treatment with the doiuneb she feels dizzy and swollen at the facec. After she had the treament she went to the toile and when she got up she felt dizzy and fell forward hitting the right maxillary area of the face. Exam sjows erythema of the area and slight swelling. No eveidence of fracture. p[atient does not want to have a x-ray or CAT scan of her head done.. Objective - Vital Signs/Intake and Output Vital Signs (last 24 hours): Temp Pulse Resp BP Pulse Ox 98.2 F 109 H 20 169/113 H 96 08/26/16 08:23 08/26/16 08:23 08/26/16 08:23 08/26/16 08:23 08/26/16 08:23 Intake and Output: 08/26/16 08/26/16 06:59 18:59 Intake Total 350 Balance 350 - Medications Medications: Current Medications Budesonide (Pulmicort Respules) 0.5 mg INH RQ12 [facility] Last Admin: 08/26/16 08:02 Dose: 0.5 mg Enoxaparin Sodium (Lovenox) 30 mg SC DAILY [facility] Last Admin: 08/26/16 10:36 Dose: Not Given Home Med (Patient's Own Medication) 1 tab PO Q12H [facility] Last Admin: 08/26/16 06:14 Dose: 1 tab Home Med (Patient's Own Medication) 1 tab PO DAILY [facility] Last Admin: 08/26/16 09:37 Dose: 1 tab Tigecycline 50 mg/ Sodium (Chloride) 100 mls @ 100 mls/hr IVPB Q12H [facility] Last Admin: 08/26/16 02:00 Dose: 100 mls/hr Methylprednisolone (Solu-Medrol) 20 mg IVP Q12 [facility] Last Admin: 08/26/16 09:39 Dose: 20 mg Nystatin (Nystatin Oral Susp) 5 ml PO QID [facility] Last Admin: 08/26/16 09:39 Dose: 5 ml Pantoprazole Sodium (Protonix Ec Tab) 40 mg PO DAILY [facility] Last Admin: 08/26/16 09:38 Dose: 40 mg Promethazine HCl/Codeine (Phenergan/Codeine Oral Syrup) 5 ml PO Q6H [facility] Last Admin: 08/26/16 05:25 Dose: 5 ml - Labs Labs: 08/24/16 13:11 08/24/16 13:11 - Head Exam Additional comments: Right maxillary area is erythematous with slight swelling. and tenderness. - Eye Exam Eye Exam: Normal appearance Pupil Exam: PERRL - ENT Exam ENT Exam: Mucous Membranes Moist, Normal Exam - Neck Exam Neck Exam: Full ROM - Respiratory Exam Respiratory Exam: Rhonchi, NORMAL BREATHING PATTERN - Cardiovascular Exam Cardiovascular Exam: REGULAR RHYTHM, +S1, +S2 - GI/Abdominal Exam GI & Abdominal Exam: Rigid - Rectal Exam Rectal Exam: Deferred - Extremities Exam Extremities Exam: Full ROM - Back Exam Back Exam: NORMAL INSPECTION - Neurological Exam Neurological Exam: Alert, Awake, Oriented x3 - Psychiatric Exam Psychiatric exam: Normal Affect, Normal Mood - Skin Skin Exam: Dry, Intact, Normal Color, Warm Assessment and Plan (1) Pneumonia Status: Resolved (2) Bronchitis Status: Acute (3) Hypertension Status: Chronic (4) Cholelithiasis Status: Chronic (5) Thyroid nodule Status: Chronic (6) Sputum culture positive for ESBL E. coli Status: Acute - Assessment and Plan (Free Text) Plan: Plan: Continue IV Tegacil. Discontinue IV Azithromycai today. Discontinue Respiratory treatment .
--- NOTE | 2016-08-26 11:56 | CP.PCM.PN ---
Subjective - Date & Time of Evaluation Date of Evaluation: 08/26/16 Time of Evaluation: 11:56 - Subjective Subjective: EVENTS NOTED, PATIENT HAD A DIZZY SPELL NOTED. C/O DIZZINESS AFTER DUONEB TREATMENTS. LESS SHORT OF BREATH STILL COUGHING/AND CONGESTED. SECRETIONS LOOSENING Objective - Vital Signs/Intake and Output Vital Signs (last 24 hours): Temp Pulse Resp BP Pulse Ox 98.2 F 109 H 20 169/113 H 96 08/26/16 08:23 08/26/16 08:23 08/26/16 08:23 08/26/16 08:23 08/26/16 08:23 Intake and Output: 08/26/16 08/26/16 06:59 18:59 Intake Total 350 Balance 350 - Medications Medications: Current Medications Budesonide (Pulmicort Respules) 0.5 mg INH RQ12 [facility] Last Admin: 08/26/16 08:02 Dose: 0.5 mg Enoxaparin Sodium (Lovenox) 30 mg SC DAILY [facility] Last Admin: 08/26/16 10:36 Dose: Not Given Home Med (Patient's Own Medication) 1 tab PO Q12H [facility] Last Admin: 08/26/16 06:14 Dose: 1 tab Home Med (Patient's Own Medication) 1 tab PO DAILY [facility] Last Admin: 08/26/16 09:37 Dose: 1 tab Tigecycline 50 mg/ Sodium (Chloride) 100 mls @ 100 mls/hr IVPB Q12H [facility] Last Admin: 08/26/16 02:00 Dose: 100 mls/hr Methylprednisolone (Solu-Medrol) 20 mg IVP Q12 [facility] Last Admin: 08/26/16 09:39 Dose: 20 mg Nystatin (Nystatin Oral Susp) 5 ml PO QID [facility] Last Admin: 08/26/16 09:39 Dose: 5 ml Pantoprazole Sodium (Protonix Ec Tab) 40 mg PO DAILY [facility] Last Admin: 08/26/16 09:38 Dose: 40 mg Promethazine HCl/Codeine (Phenergan/Codeine Oral Syrup) 5 ml PO Q6H [facility] Last Admin: 08/26/16 11:38 Dose: 5 ml - Labs Labs: 08/24/16 13:11 08/24/16 13:11 - Constitutional Appears: No Acute Distress - Head Exam Head Exam: NORMAL INSPECTION - Eye Exam Eye Exam: EOMI, PERRL. absent: Scleral icterus - ENT Exam ENT Exam: Normal Oropharynx - Neck Exam Neck Exam: Normal Inspection - Respiratory Exam Respiratory Exam: Rhonchi, Wheezes (BUT LESS.) - Cardiovascular Exam Cardiovascular Exam: REGULAR RHYTHM, +S1, +S2 - GI/Abdominal Exam GI & Abdominal Exam: Soft, Normal Bowel Sounds. absent: Tenderness, Organomegaly - Extremities Exam Extremities Exam: Normal Capillary Refill. absent: Calf Tenderness, Pedal Edema - Neurological Exam Neurological Exam: Alert, Awake, CN II-XII Intact, Normal Gait, Oriented x3, Reflexes Normal - Psychiatric Exam Psychiatric exam: Normal Mood - Skin Skin Exam: Normal Color, Warm Assessment and Plan (1) Pneumonia Assessment & Plan: CONTINUE iv TYGACIL 100 MG LOADING DOSE,.08/20/16 F/U TYGACIL 50 MG EVERY 12 HOURLY FOR NOW-DAY 6 ON ZITHROMAX 500 MG ONCE A DAY DAILY 08/20/16 X 5DAYS- DC TODAY CONTINUE iv SOLU-MEDROL 40 MG EVERY 8 HOURLY PER PULMONARY 08/18 F/U PERTUSSIS SEROLOGY- PENDING. WATCH RENAL FUNCTIONS PT TO GET TDAP VACCINATION BEFORE D/C. PULMONARY TOILET. RESPIRATORY /CONTACT PRECAUTIONS. Status: Resolved (2) Sputum culture positive for ESBL E. coli Status: Acute (3) Cough Status: Acute (4) Hypertension Status: Chronic (5) Thyroid nodule Status: Chronic
--- NOTE | 2016-08-26 15:09 | CP.PCM.PN ---
Subjective - Date & Time of Evaluation Date of Evaluation: 08/26/16 Time of Evaluation: 11:00 - Subjective Subjective: Patient seen and examined. Breathing, cough and hoarseness much improved Alert oriented 3 Afebrile in no distress Objective - Vital Signs/Intake and Output Vital Signs (last 24 hours): Temp Pulse Resp BP Pulse Ox 98.2 F 109 H 20 169/113 H 96 08/26/16 08:23 08/26/16 08:23 08/26/16 08:23 08/26/16 08:23 08/26/16 08:23 Intake and Output: 08/26/16 08/26/16 06:59 18:59 Intake Total 350 Balance 350 - Medications Medications: Current Medications Budesonide (Pulmicort Respules) 0.5 mg INH RQ12 [facility] Last Admin: 08/26/16 08:02 Dose: 0.5 mg Enoxaparin Sodium (Lovenox) 30 mg SC DAILY [facility] Last Admin: 08/26/16 10:36 Dose: Not Given Home Med (Patient's Own Medication) 1 tab PO Q12H [facility] Last Admin: 08/26/16 06:14 Dose: 1 tab Home Med (Patient's Own Medication) 1 tab PO DAILY [facility] Last Admin: 08/26/16 09:37 Dose: 1 tab Tigecycline 50 mg/ Sodium (Chloride) 100 mls @ 100 mls/hr IVPB Q12H [facility] Last Admin: 08/26/16 14:14 Dose: 100 mls/hr Methylprednisolone (Solu-Medrol) 20 mg IVP Q12 [facility] Last Admin: 08/26/16 09:39 Dose: 20 mg Nystatin (Nystatin Oral Susp) 5 ml PO QID [facility] Last Admin: 08/26/16 14:14 Dose: 5 ml Pantoprazole Sodium (Protonix Ec Tab) 40 mg PO DAILY [facility] Last Admin: 08/26/16 09:38 Dose: 40 mg Promethazine HCl/Codeine (Phenergan/Codeine Oral Syrup) 5 ml PO Q6H [facility] Last Admin: 08/26/16 11:38 Dose: 5 ml - Labs Labs: 08/24/16 13:11 08/24/16 13:11 - Head Exam Head Exam: ATRAUMATIC, NORMOCEPHALIC - Eye Exam Eye Exam: Normal appearance - ENT Exam ENT Exam: Mucous Membranes Moist - Neck Exam Neck Exam: Normal Inspection - Respiratory Exam Respiratory Exam: Clear to Ausculation Bilateral - Cardiovascular Exam Cardiovascular Exam: REGULAR RHYTHM - GI/Abdominal Exam GI & Abdominal Exam: Soft, Normal Bowel Sounds - Extremities Exam Extremities Exam: Full ROM, Normal Inspection - Neurological Exam Neurological Exam: Alert, Oriented x3 Assessment and Plan (1) Sputum culture positive for ESBL E. coli Assessment & Plan: Condition much improved We'll start tapering steroids Continue nebulizer treatment Antibiotics as per infectious disease Status: Acute (2) Cough Status: Acute
[2016-08-27] MEDS: Promethazine/Cod 6.25mg-10mg/5ml Syr UD PO SCH ×3 (05:27→17:38)
[2016-08-27] MEDS: Patient's Own Medication - Tablet/Capusle PO SCH ×2 (06:13→17:37)
[2016-08-27 06:29] LABS: BASO % 0.1 % (0.0-2.0); HEMATOCRIT 36.9 % (34.0-47.0); LYMPH # 1.8 K/uL (1.0-4.3); LYMPH % 14.6 % (20.0-40.0); MEAN CELL VOLUME 88.7 fL (81.0-99.0); MEAN CORPUSCULAR HEMOGLOBIN 29.7 pg (27.0-31.0); MEAN CORPUSCULAR HGB CONC 33.5 g/dL (33.0-37.0); MEAN PLATELET VOLUME 6.9 fL (7.2-11.7); MONO # 1.1 K/uL (0.0-0.8); WHITE BLOOD COUNT 12.6 K/uL (4.8-10.8)
[2016-08-27 06:47] LABS: CHLORIDE 95 mmol/L (98-107); POTASSIUM 3.8 mmol/L (3.6-5.2); SODIUM 130 mmol/L (132-148)
[2016-08-27 06:49] LABS: ALB/GLOB RATIO 0.9 (1.0-2.1); BILIRUBIN,DIRECT 0.2 mg/dL (0.0-0.4); BILIRUBIN,TOTAL 0.7 mg/dL (0.2-1.3); CARBON DIOXIDE 28 mmol/L (22-30); GFR AFRICAN-AMERICAN > 60; TOTAL PROTEIN 5.3 g/dL (6.3-8.3)
[2016-08-27 06:50] LABS: ALKALINE PHOSPHATASE 47 U/L (38-126); ALT/SGPT 28 U/L (9-52); AST/SGOT 15 U/L (14-36); BLOOD UREA NITROGEN 38 mg/dL (7-17); CALCIUM 7.6 mg/dl (8.6-10.4); GLUCOSE,RANDOM 116 mg/dL (65-105)
[2016-08-27] MEDS: Budesonide 0.5 mg/2 ml Inhal Susp UD INH SCH ×2 (07:58→19:55)
[2016-08-27] MEDS: Enoxaparin 30 mg Syringe SC SCH (09:39)
[2016-08-27] MEDS: Pantoprazole 40 mg EC Tab PO SCH (09:39)
[2016-08-27] MEDS: Nystatin 100,000 Units/ml Oral Susp 5 ml UD PO SCH ×4 (09:39→21:19)
[2016-08-27] MEDS: [UNRECOGNIZED DRUG - OTHER] PO SCH (09:45)
[2016-08-27] MEDS: MULTIVITAMIN PO SCH (09:45)
--- NOTE | 2016-08-27 10:43 | CP.PCM.PN ---
Subjective - Date & Time of Evaluation Date of Evaluation: 08/27/16 Time of Evaluation: 10:40 - Subjective Subjective: Patient seen and examined. Still putting out yellowish sputum. Still coughing but lesser SOB. Cough is much looser. Afebrile. WBC down to 12,000. Objective - Vital Signs/Intake and Output Vital Signs (last 24 hours): Temp Pulse Resp BP Pulse Ox 98.1 F 88 20 178/90 H 98 08/27/16 07:51 08/27/16 07:51 08/27/16 07:51 08/27/16 07:51 08/27/16 07:51 Intake and Output: 08/27/16 08/27/16 06:59 18:59 Intake Total 260 Balance 260 - Medications Medications: Current Medications Budesonide (Pulmicort Respules) 0.5 mg INH RQ12 [facility] Last Admin: 08/27/16 07:58 Dose: 0.5 mg Enoxaparin Sodium (Lovenox) 30 mg SC DAILY [facility] Last Admin: 08/27/16 09:39 Dose: Not Given Home Med (Patient's Own Medication) 1 tab PO Q12H [facility] Last Admin: 08/27/16 06:13 Dose: 1 tab Home Med (Patient's Own Medication) 1 tab PO DAILY [facility] Last Admin: 08/27/16 09:45 Dose: 1 tab Tigecycline 50 mg/ Sodium (Chloride) 100 mls @ 100 mls/hr IVPB Q12H [facility] Last Admin: 08/27/16 02:03 Dose: 100 mls/hr Nystatin (Nystatin Oral Susp) 5 ml PO QID [facility] Last Admin: 08/27/16 09:39 Dose: 5 ml Pantoprazole Sodium (Protonix Ec Tab) 40 mg PO DAILY [facility] Last Admin: 08/27/16 09:39 Dose: 40 mg Prednisone (Prednisone Tab) 20 mg PO DAILY [facility] Last Admin: 08/27/16 09:39 Dose: 20 mg Promethazine HCl/Codeine (Phenergan/Codeine Oral Syrup) 5 ml PO Q6H [facility] Last Admin: 08/27/16 05:27 Dose: 5 ml - Labs Labs: 08/27/16 06:12 08/27/16 06:12 - Constitutional Appears: Well, No Acute Distress - Eye Exam Pupil Exam: PERRL - ENT Exam ENT Exam: Normal Exam - Neck Exam Neck Exam: Full ROM - Respiratory Exam Respiratory Exam: Rhonchi - Cardiovascular Exam Cardiovascular Exam: +S1, +S2 - GI/Abdominal Exam GI & Abdominal Exam: Soft - Rectal Exam Rectal Exam: Deferred - Extremities Exam Extremities Exam: Full ROM - Back Exam Back Exam: NORMAL INSPECTION - Neurological Exam Neurological Exam: Alert, Awake, CN II-XII Intact, Oriented x3 - Psychiatric Exam Psychiatric exam: Normal Affect, Normal Mood - Skin Skin Exam: Dry, Intact, Normal Color, Warm Assessment and Plan (1) Pneumonia Status: Resolved (2) Bronchitis Status: Acute (3) Hypertension Status: Chronic (4) Cholelithiasis Status: Chronic (5) Thyroid nodule Status: Chronic (6) Sputum culture positive for ESBL E. coli Status: Acute - Assessment and Plan (Free Text) Plan: Plan: Continue IV Tygacil. Started on Prednisone PO, IV solumedrol discontinued. today. Nebulizer discontinued . Sputum reculured.
--- NOTE | 2016-08-27 11:03 | CP.PCM.PN ---
Subjective - Date & Time of Evaluation Date of Evaluation: 08/27/16 Time of Evaluation: 09:00 - Subjective Subjective: patient seen andmined. Complaining of cough productive off copious amount of phlegm Less short of breath Afebrile Objective - Vital Signs/Intake and Output Vital Signs (last 24 hours): Temp Pulse Resp BP Pulse Ox 98.1 F 88 20 178/90 H 98 08/27/16 07:51 08/27/16 07:51 08/27/16 07:51 08/27/16 07:51 08/27/16 07:51 Intake and Output: 08/27/16 08/27/16 06:59 18:59 Intake Total 260 Balance 260 - Medications Medications: Current Medications Amlodipine Besylate (Norvasc) 5 mg PO DAILY [facility] Budesonide (Pulmicort Respules) 0.5 mg INH RQ12 [facility] Last Admin: 08/27/16 07:58 Dose: 0.5 mg Enoxaparin Sodium (Lovenox) 30 mg SC DAILY [facility] Last Admin: 08/27/16 09:39 Dose: Not Given Home Med (Patient's Own Medication) 1 tab PO Q12H [facility] Last Admin: 08/27/16 06:13 Dose: 1 tab Home Med (Patient's Own Medication) 1 tab PO DAILY [facility] Last Admin: 08/27/16 09:45 Dose: 1 tab Tigecycline 50 mg/ Sodium (Chloride) 100 mls @ 100 mls/hr IVPB Q12H [facility] Last Admin: 08/27/16 02:03 Dose: 100 mls/hr Nystatin (Nystatin Oral Susp) 5 ml PO QID [facility] Last Admin: 08/27/16 09:39 Dose: 5 ml Pantoprazole Sodium (Protonix Ec Tab) 40 mg PO DAILY [facility] Last Admin: 08/27/16 09:39 Dose: 40 mg Prednisone (Prednisone Tab) 20 mg PO DAILY [facility] Last Admin: 08/27/16 09:39 Dose: 20 mg Promethazine HCl/Codeine (Phenergan/Codeine Oral Syrup) 5 ml PO Q6H [facility] Last Admin: 08/27/16 05:27 Dose: 5 ml - Labs Labs: 08/27/16 06:12 08/27/16 06:12 - Head Exam Head Exam: ATRAUMATIC, NORMOCEPHALIC - Eye Exam Eye Exam: Normal appearance - ENT Exam ENT Exam: Mucous Membranes Moist - Neck Exam Neck Exam: Normal Inspection - Respiratory Exam Respiratory Exam: Rhonchi - Cardiovascular Exam Cardiovascular Exam: REGULAR RHYTHM - GI/Abdominal Exam GI & Abdominal Exam: Normal Bowel Sounds - Extremities Exam Extremities Exam: Normal Inspection - Neurological Exam Neurological Exam: Alert, Oriented x3 Assessment and Plan (1) Sputum culture positive for ESBL E. coli Assessment & Plan: continue antibiotics Continue prednisone 20 mg once daily Nebulizer treatment and Pulmicort Sputum for culture and senst Status: Acute (2) Cough Status: Acute
--- NOTE | 2016-08-27 12:10 | CP.PCM.PN ---
Subjective - Date & Time of Evaluation Date of Evaluation: 08/27/16 Time of Evaluation: 12:10 - Subjective Subjective: AFEBRILE. STILL WITH COUGH SECRETIONS TENACIOUS AND DIFFICULT TO EXPECTORATE. C/O PLEURITIC CHEST PAIN ON COUGHING. Objective - Vital Signs/Intake and Output Vital Signs (last 24 hours): Temp Pulse Resp BP Pulse Ox 98.1 F 88 20 178/90 H 98 08/27/16 07:51 08/27/16 07:51 08/27/16 07:51 08/27/16 07:51 08/27/16 07:51 Intake and Output: 08/27/16 08/27/16 06:59 18:59 Intake Total 260 Balance 260 - Medications Medications: Current Medications Albuterol/Ipratropium (Duoneb 3 Mg/0.5 Mg (3 Ml) Ud) 3 ml INH RQ6 [facility] Amlodipine Besylate (Norvasc) 5 mg PO DAILY [facility] Budesonide (Pulmicort Respules) 0.5 mg INH RQ12 [facility] Last Admin: 08/27/16 07:58 Dose: 0.5 mg Enoxaparin Sodium (Lovenox) 30 mg SC DAILY [facility] Last Admin: 08/27/16 09:39 Dose: Not Given Home Med (Patient's Own Medication) 1 tab PO Q12H [facility] Last Admin: 08/27/16 06:13 Dose: 1 tab Home Med (Patient's Own Medication) 1 tab PO DAILY [facility] Last Admin: 08/27/16 09:45 Dose: 1 tab Tigecycline 50 mg/ Sodium (Chloride) 100 mls @ 100 mls/hr IVPB Q12H [facility] Last Admin: 08/27/16 02:03 Dose: 100 mls/hr Nystatin (Nystatin Oral Susp) 5 ml PO QID [facility] Last Admin: 08/27/16 09:39 Dose: 5 ml Pantoprazole Sodium (Protonix Ec Tab) 40 mg PO DAILY [facility] Last Admin: 08/27/16 09:39 Dose: 40 mg Prednisone (Prednisone Tab) 20 mg PO DAILY [facility] Last Admin: 08/27/16 09:39 Dose: 20 mg Promethazine HCl/Codeine (Phenergan/Codeine Oral Syrup) 5 ml PO Q6H [facility] Last Admin: 08/27/16 05:27 Dose: 5 ml - Labs Labs: 08/27/16 06:12 08/27/16 06:12 - Constitutional Appears: No Acute Distress - Head Exam Head Exam: NORMAL INSPECTION - Eye Exam Eye Exam: EOMI, PERRL - ENT Exam ENT Exam: Normal Oropharynx - Neck Exam Neck Exam: Normal Inspection - Respiratory Exam Respiratory Exam: Rhonchi, Wheezes - Cardiovascular Exam Cardiovascular Exam: REGULAR RHYTHM, +S1, +S2 - GI/Abdominal Exam GI & Abdominal Exam: Soft, Normal Bowel Sounds - Extremities Exam Extremities Exam: Normal Capillary Refill. absent: Calf Tenderness, Pedal Edema - Neurological Exam Neurological Exam: Awake, CN II-XII Intact, Oriented x3, Reflexes Normal - Psychiatric Exam Psychiatric exam: Normal Mood - Skin Skin Exam: Normal Color, Warm Assessment and Plan (1) Pneumonia Assessment & Plan: CONTINUE iv TYGACIL 100 MG LOADING DOSE,.08/20/16 F/U TYGACIL 50 MG EVERY 12 HOURLY FOR NOW-DAY 8 ON ZITHROMAX 500 MG ONCE A DAY DAILY 08/20/16 X 5DAYS- DC TODAY CONTINUE iv SOLU-MEDROL 40 MG EVERY 8 HOURLY PER PULMONARY 08/18 F/U PERTUSSIS SEROLOGY- PENDING. WATCH RENAL FUNCTIONS. repeat sputum gram stain and culture.-pending PT TO GET TDAP VACCINATION BEFORE D/C. PULMONARY TOILET. RESPIRATORY /CONTACT PRECAUTIONS. Status: Resolved (2) Sputum culture positive for ESBL E. coli Status: Acute (3) Cough Status: Acute (4) Hypertension Status: Chronic (5) Thyroid nodule Status: Chronic
[2016-08-27] MEDS: Albuterol-Ipratrop 3 mg / 0.5 (3 ml) UD INH SCH (19:55)
[2016-08-28] MEDS: Promethazine/Cod 6.25mg-10mg/5ml Syr UD PO SCH ×5 (01:00→23:38)
[2016-08-28] MEDS: Albuterol-Ipratrop 3 mg / 0.5 (3 ml) UD INH SCH ×4 (01:10→21:14)
[2016-08-28 02:32] VITALS: RESP 20
[2016-08-28] MEDS: Budesonide 0.5 mg/2 ml Inhal Susp UD INH SCH ×2 (08:39→21:14)
[2016-08-28] MEDS: Pantoprazole 40 mg EC Tab PO SCH (09:58)
[2016-08-28] MEDS: Nystatin 100,000 Units/ml Oral Susp 5 ml UD PO SCH ×4 (09:58→22:04)
[2016-08-28] MEDS: [UNRECOGNIZED DRUG - OTHER] PO SCH (09:59)
[2016-08-28] MEDS: MULTIVITAMIN PO SCH (09:59)
[2016-08-28] MEDS: Patient's Own Medication - Tablet/Capusle PO SCH ×2 (09:59→17:30)
[2016-08-28] MEDS: Enoxaparin 30 mg Syringe SC SCH (10:02)
--- NOTE | 2016-08-28 10:02 | CP.PCM.PN ---
Subjective - Date & Time of Evaluation Date of Evaluation: 08/28/16 Time of Evaluation: 10:00 - Subjective Subjective: Afebrile. patient seen and examined. Lesser cough, Lesser SOB. Sputum recultured. Objective - Vital Signs/Intake and Output Vital Signs (last 24 hours): Temp Pulse Resp BP Pulse Ox 98.1 F 90 20 138/90 98 08/28/16 07:37 08/28/16 07:37 08/28/16 07:37 08/28/16 07:37 08/28/16 07:37 Intake and Output: 08/28/16 08/28/16 06:59 18:59 Intake Total 300 Balance 300 - Medications Medications: Current Medications Albuterol/Ipratropium (Duoneb 3 Mg/0.5 Mg (3 Ml) Ud) 3 ml INH RQ6 [facility] Last Admin: 08/28/16 08:39 Dose: 3 ml Amlodipine Besylate (Norvasc) 5 mg PO DAILY [facility] Budesonide (Pulmicort Respules) 0.5 mg INH RQ12 [facility] Last Admin: 08/28/16 08:39 Dose: 0.5 mg Diphenhydramine HCl (Benadryl) 25 mg PO Q6 PRN PRN Reason: Allergy symptoms Enoxaparin Sodium (Lovenox) 30 mg SC DAILY [facility] Last Admin: 08/27/16 09:39 Dose: Not Given Home Med (Patient's Own Medication) 1 tab PO Q12H [facility] Last Admin: 08/27/16 17:37 Dose: 1 tab Home Med (Patient's Own Medication) 1 tab PO DAILY [facility] Last Admin: 08/27/16 09:45 Dose: 1 tab Tigecycline 50 mg/ Sodium (Chloride) 100 mls @ 100 mls/hr IVPB Q12H [facility] Last Admin: 08/28/16 01:15 Dose: 100 mls/hr Nystatin (Nystatin Oral Susp) 5 ml PO QID [facility] Last Admin: 08/27/16 21:19 Dose: 5 ml Pantoprazole Sodium (Protonix Ec Tab) 40 mg PO DAILY [facility] Last Admin: 08/27/16 09:39 Dose: 40 mg Prednisone (Prednisone Tab) 20 mg PO DAILY [facility] Last Admin: 08/27/16 09:39 Dose: 20 mg Promethazine HCl/Codeine (Phenergan/Codeine Oral Syrup) 5 ml PO Q6H [facility] Last Admin: 08/28/16 05:50 Dose: 5 ml - Labs Labs: 08/27/16 06:12 08/27/16 06:12 - Constitutional Appears: Well, Non-toxic, No Acute Distress - Head Exam Head Exam: ATRAUMATIC, NORMAL INSPECTION - Respiratory Exam Respiratory Exam: Rhonchi - Cardiovascular Exam Cardiovascular Exam: REGULAR RHYTHM, +S1, +S2 - GI/Abdominal Exam GI & Abdominal Exam: Soft - Rectal Exam Rectal Exam: Deferred - Extremities Exam Extremities Exam: Full ROM - Back Exam Back Exam: NORMAL INSPECTION - Skin Skin Exam: Dry, Intact, Normal Color Assessment and Plan (1) Pneumonia Status: Resolved (2) Bronchitis Status: Acute (3) Hypertension Status: Chronic (4) Cholelithiasis Status: Chronic (5) Thyroid nodule Status: Chronic (6) Sputum culture positive for ESBL E. coli Status: Acute - Assessment and Plan (Free Text) Plan: Plan: Continue IV Tygacil. Prednisone PO.
--- NOTE | 2016-08-28 14:00 | CP.PCM.PN ---
Subjective - Date & Time of Evaluation Date of Evaluation: 08/28/16 Time of Evaluation: 14:00 - Subjective Subjective: afebrile,vss c/o productive cough. States phlegm is loosening up Still doesn't feel okay Objective - Vital Signs/Intake and Output Vital Signs (last 24 hours): Temp Pulse Resp BP Pulse Ox 98.1 F 90 20 138/90 98 08/28/16 07:37 08/28/16 07:37 08/28/16 07:37 08/28/16 07:37 08/28/16 07:37 Intake and Output: 08/28/16 08/28/16 06:59 18:59 Intake Total 300 Balance 300 - Medications Medications: Current Medications Albuterol/Ipratropium (Duoneb 3 Mg/0.5 Mg (3 Ml) Ud) 3 ml INH RQ6 [facility] Last Admin: 08/28/16 08:39 Dose: 3 ml Amlodipine Besylate (Norvasc) 5 mg PO DAILY [facility] Last Admin: 08/28/16 09:58 Dose: 5 mg Budesonide (Pulmicort Respules) 0.5 mg INH RQ12 [facility] Last Admin: 08/28/16 08:39 Dose: 0.5 mg Diphenhydramine HCl (Benadryl) 25 mg PO Q6 PRN PRN Reason: Allergy symptoms Last Admin: 08/28/16 11:44 Dose: 25 mg Enoxaparin Sodium (Lovenox) 30 mg SC DAILY [facility] Last Admin: 08/28/16 10:02 Dose: Not Given Home Med (Patient's Own Medication) 1 tab PO Q12H [facility] Last Admin: 08/28/16 09:59 Dose: 1 tab Home Med (Patient's Own Medication) 1 tab PO DAILY [facility] Last Admin: 08/28/16 09:59 Dose: 1 tab Tigecycline 50 mg/ Sodium (Chloride) 100 mls @ 100 mls/hr IVPB Q12H [facility] Last Admin: 08/28/16 13:29 Dose: 100 mls/hr Nystatin (Nystatin Oral Susp) 5 ml PO QID [facility] Last Admin: 08/28/16 13:29 Dose: 5 ml Pantoprazole Sodium (Protonix Ec Tab) 40 mg PO DAILY [facility] Last Admin: 08/28/16 09:58 Dose: 40 mg Prednisone (Prednisone Tab) 20 mg PO DAILY [facility] Last Admin: 08/28/16 09:58 Dose: 20 mg Promethazine HCl/Codeine (Phenergan/Codeine Oral Syrup) 5 ml PO Q6H [facility] Last Admin: 08/28/16 11:44 Dose: 5 ml - Labs Labs: 08/27/16 06:12 08/27/16 06:12 - Constitutional Appears: No Acute Distress - Head Exam Head Exam: NORMAL INSPECTION - Eye Exam Eye Exam: EOMI, PERRL - ENT Exam ENT Exam: Normal Oropharynx - Neck Exam Neck Exam: Normal Inspection - Respiratory Exam Respiratory Exam: Prolonged Expiratory Phase, Rhonchi - Cardiovascular Exam Cardiovascular Exam: REGULAR RHYTHM, +S1, +S2 - GI/Abdominal Exam GI & Abdominal Exam: Soft, Normal Bowel Sounds. absent: Organomegaly - Extremities Exam Extremities Exam: Normal Capillary Refill. absent: Calf Tenderness, Pedal Edema - Neurological Exam Neurological Exam: Awake, CN II-XII Intact, Oriented x3, Reflexes Normal - Psychiatric Exam Psychiatric exam: Normal Mood - Skin Skin Exam: Normal Color, Warm Assessment and Plan (1) Pneumonia Assessment & Plan: CONTINUE iv TYGACIL 100 MG LOADING DOSE,.08/20/16 F/U TYGACIL 50 MG EVERY 12 HOURLY FOR NOW-DAY 9 ON PREDNISONE 20 MG BY MOUTH ONCE DAILY 08/28/16 08/27/16 repeat sputum gram stain and culture.-GNR / GNR -2. F/U CULTURES F/U PERTUSSIS SEROLOGY- PENDING. WATCH RENAL FUNCTIONS. PT TO GET TDAP VACCINATION BEFORE D/C. PULMONARY TOILET. RESPIRATORY /CONTACT PRECAUTIONS. Status: Resolved (2) Sputum culture positive for ESBL E. coli Status: Acute (3) Cough Status: Acute (4) Hypertension Status: Chronic (5) Thyroid nodule Status: Chronic
--- NOTE | 2016-08-28 18:04 | CP.PCM.PN ---
Subjective - Date & Time of Evaluation Date of Evaluation: 08/28/16 Time of Evaluation: 16:00 - Subjective Subjective: patient seen and examined. Shortness of breath and cough improving Still complaining of cough productive of purulent phlegm Afebrile Objective - Vital Signs/Intake and Output Vital Signs (last 24 hours): Temp Pulse Resp BP Pulse Ox 98 F 89 20 123/73 96 08/28/16 15:15 08/28/16 15:15 08/28/16 15:15 08/28/16 15:15 08/28/16 15:15 Intake and Output: 08/28/16 08/28/16 06:59 18:59 Intake Total 300 500 Balance 300 500 - Medications Medications: Current Medications Albuterol/Ipratropium (Duoneb 3 Mg/0.5 Mg (3 Ml) Ud) 3 ml INH RQ6 [facility] Last Admin: 08/28/16 15:13 Dose: 3 ml Amlodipine Besylate (Norvasc) 5 mg PO DAILY [facility] Last Admin: 08/28/16 09:58 Dose: 5 mg Budesonide (Pulmicort Respules) 0.5 mg INH RQ12 [facility] Last Admin: 08/28/16 08:39 Dose: 0.5 mg Diphenhydramine HCl (Benadryl) 25 mg PO Q6 PRN PRN Reason: Allergy symptoms Last Admin: 08/28/16 11:44 Dose: 25 mg Enoxaparin Sodium (Lovenox) 30 mg SC DAILY [facility] Last Admin: 08/28/16 10:02 Dose: Not Given Home Med (Patient's Own Medication) 1 tab PO Q12H [facility] Last Admin: 08/28/16 17:30 Dose: 1 tab Home Med (Patient's Own Medication) 1 tab PO DAILY [facility] Last Admin: 08/28/16 09:59 Dose: 1 tab Tigecycline 50 mg/ Sodium (Chloride) 100 mls @ 100 mls/hr IVPB Q12H [facility] Last Admin: 08/28/16 13:29 Dose: 100 mls/hr Nystatin (Nystatin Oral Susp) 5 ml PO QID [facility] Last Admin: 08/28/16 17:30 Dose: 5 ml Pantoprazole Sodium (Protonix Ec Tab) 40 mg PO DAILY [facility] Last Admin: 08/28/16 09:58 Dose: 40 mg Prednisone (Prednisone Tab) 20 mg PO DAILY [facility] Last Admin: 08/28/16 09:58 Dose: 20 mg Promethazine HCl/Codeine (Phenergan/Codeine Oral Syrup) 5 ml PO Q6H [facility] Last Admin: 08/28/16 17:30 Dose: 5 ml - Labs Labs: 08/27/16 06:12 08/27/16 06:12 - Head Exam Head Exam: ATRAUMATIC, NORMOCEPHALIC - Eye Exam Eye Exam: Normal appearance - ENT Exam ENT Exam: Mucous Membranes Moist - Neck Exam Neck Exam: Normal Inspection - Respiratory Exam Respiratory Exam: Rhonchi - Cardiovascular Exam Cardiovascular Exam: REGULAR RHYTHM - GI/Abdominal Exam GI & Abdominal Exam: Soft, Normal Bowel Sounds - Extremities Exam Extremities Exam: Full ROM, Normal Inspection - Back Exam Back Exam: NORMAL INSPECTION - Neurological Exam Neurological Exam: Alert, Oriented x3 Assessment and Plan (1) Sputum culture positive for ESBL E. coli Assessment & Plan: continue antibiotics as per infectious disease Continue p.o. prednisone continue nebulizer treatment Status: Acute (2) Cough Status: Acute
[2016-08-28 20:23] LABS: FHA IGG 101 IU/mL; PT IGG 5 IU/mL
[2016-08-29] MEDS: Albuterol-Ipratrop 3 mg / 0.5 (3 ml) UD INH SCH ×4 (01:08→19:24)
[2016-08-29] MEDS: Promethazine/Cod 6.25mg-10mg/5ml Syr UD PO SCH ×4 (05:27→23:27)
[2016-08-29] MEDS: Patient's Own Medication - Tablet/Capusle PO SCH ×2 (06:22→17:31)
[2016-08-29 07:19] LABS: BASO # 0.1 K/uL (0.0-0.2); BASO % 0.4 % (0.0-2.0); EOS # 0.1 K/uL (0.0-0.7); EOS % 0.8 % (0.0-4.0); HEMATOCRIT 40.8 % (34.0-47.0); LYMPH # 5.5 K/uL (1.0-4.3); LYMPH % 30.8 % (20.0-40.0); MEAN CELL VOLUME 89.4 fL (81.0-99.0); MEAN CORPUSCULAR HEMOGLOBIN 29.4 pg (27.0-31.0); MEAN CORPUSCULAR HGB CONC 32.9 g/dL (33.0-37.0); MEAN PLATELET VOLUME 6.9 fL (7.2-11.7); MONO # 1.3 K/uL (0.0-0.8); MONO % 7.4 % (0.0-10.0); NRBC % 0.1 % (0.0-2.0); RED CELL DISTRIBUTION WIDTH 13.6 % (11.5-14.5); WHITE BLOOD COUNT 17.9 K/uL (4.8-10.8)
[2016-08-29] MEDS: Budesonide 0.5 mg/2 ml Inhal Susp UD INH SCH ×2 (07:40→19:24)
--- NOTE | 2016-08-29 07:42 | CP.PCM.PN ---
Subjective - Date & Time of Evaluation Date of Evaluation: 08/29/16 Time of Evaluation: 07:40 - Subjective Subjective: Afebrile. Lesser SOB. Looser cough. Preliminary gram stain and culture shwed Gram negative rods. Sensitivity pending.. Perusis pending. Objective - Vital Signs/Intake and Output Vital Signs (last 24 hours): Temp Pulse Resp BP Pulse Ox 97.6 F 84 20 140/88 97 08/29/16 00:00 08/29/16 06:00 08/29/16 06:00 08/29/16 06:00 08/29/16 06:00 Intake and Output: 08/29/16 08/29/16 06:59 18:59 Intake Total 750 Balance 750 - Medications Medications: Current Medications Albuterol/Ipratropium (Duoneb 3 Mg/0.5 Mg (3 Ml) Ud) 3 ml INH RQ6 [facility] Last Admin: 08/29/16 01:08 Dose: 3 ml Amlodipine Besylate (Norvasc) 5 mg PO DAILY [facility] Last Admin: 08/28/16 09:58 Dose: 5 mg Budesonide (Pulmicort Respules) 0.5 mg INH RQ12 [facility] Last Admin: 08/28/16 21:14 Dose: 0.5 mg Diphenhydramine HCl (Benadryl) 25 mg PO Q6 PRN PRN Reason: Allergy symptoms Last Admin: 08/28/16 20:26 Dose: 25 mg Enoxaparin Sodium (Lovenox) 30 mg SC DAILY [facility] Last Admin: 08/28/16 10:02 Dose: Not Given Home Med (Patient's Own Medication) 1 tab PO Q12H [facility] Last Admin: 08/29/16 06:22 Dose: 1 tab Home Med (Patient's Own Medication) 1 tab PO DAILY [facility] Last Admin: 08/28/16 09:59 Dose: 1 tab Tigecycline 50 mg/ Sodium (Chloride) 100 mls @ 100 mls/hr IVPB Q12H [facility] Last Admin: 08/29/16 02:02 Dose: 100 mls/hr Nystatin (Nystatin Oral Susp) 5 ml PO QID [facility] Last Admin: 08/28/16 22:04 Dose: 5 ml Pantoprazole Sodium (Protonix Ec Tab) 40 mg PO DAILY [facility] Last Admin: 08/28/16 09:58 Dose: 40 mg Prednisone (Prednisone Tab) 20 mg PO DAILY [facility] Last Admin: 08/28/16 09:58 Dose: 20 mg Promethazine HCl/Codeine (Phenergan/Codeine Oral Syrup) 5 ml PO Q6H [facility] Last Admin: 08/29/16 05:27 Dose: 5 ml - Labs Labs: 08/29/16 06:53 08/27/16 06:12 - Head Exam Head Exam: ATRAUMATIC, NORMAL INSPECTION, NORMOCEPHALIC - Eye Exam Eye Exam: Normal appearance Pupil Exam: NORMAL ACCOMODATION, PERRL - Neck Exam Neck Exam: Full ROM, Normal Inspection - Respiratory Exam Respiratory Exam: Rhonchi - Cardiovascular Exam Cardiovascular Exam: REGULAR RHYTHM, +S1, +S2 - GI/Abdominal Exam GI & Abdominal Exam: Soft, Normal Bowel Sounds - Rectal Exam Rectal Exam: Deferred - Extremities Exam Extremities Exam: Normal Inspection - Back Exam Back Exam: Full ROM - Neurological Exam Neurological Exam: Alert, Awake, Oriented x3, Reflexes Normal - Psychiatric Exam Psychiatric exam: Normal Affect, Normal Mood - Skin Skin Exam: Dry, Intact, Warm Assessment and Plan (1) Pneumonia Status: Resolved (2) Bronchitis Status: Acute (3) Hypertension Status: Chronic (4) Cholelithiasis Status: Chronic (5) Thyroid nodule Status: Chronic (6) Sputum culture positive for ESBL E. coli Status: Acute - Assessment and Plan (Free Text) Plan: Plan: Continue IV Tygacil, and PO prednisone. Check sputum culture. Note.....Increasing WBC could be secondary to steroids?.
[2016-08-29] MEDS: Pantoprazole 40 mg EC Tab PO SCH (10:03)
[2016-08-29] MEDS: Nystatin 100,000 Units/ml Oral Susp 5 ml UD PO SCH ×4 (10:03→22:05)
[2016-08-29] MEDS: MULTIVITAMIN PO SCH (10:04)
[2016-08-29] MEDS: Enoxaparin 30 mg Syringe SC SCH (10:04)
[2016-08-29] MEDS: [UNRECOGNIZED DRUG - OTHER] PO SCH (10:04)
[2016-08-29] MEDS ORDERED: Meropenem 1 GM in Sodium Chloride 0.9% 100 ML IVPB ONE (12:25)
--- NOTE | 2016-08-29 12:28 | CP.PCM.PN ---
Subjective - Date & Time of Evaluation Date of Evaluation: 08/29/16 Time of Evaluation: 12:28 - Subjective Subjective: afebrile Complains of productive cough Secretions thick and difficult to expectorate. Increasing leukocytosis noted. WBC 17.9.. SPUTUM 08/28/16 +VE PSEUDOMONAS AERUGINOSA GNR -2 Objective - Vital Signs/Intake and Output Vital Signs (last 24 hours): Temp Pulse Resp BP Pulse Ox 97.6 F 84 20 140/88 97 08/29/16 00:00 08/29/16 06:00 08/29/16 06:00 08/29/16 06:00 08/29/16 06:00 Intake and Output: 08/29/16 08/29/16 06:59 18:59 Intake Total 750 Balance 750 - Medications Medications: Current Medications Albuterol/Ipratropium (Duoneb 3 Mg/0.5 Mg (3 Ml) Ud) 3 ml INH RQ6 [facility] Last Admin: 08/29/16 07:40 Dose: 3 ml Amlodipine Besylate (Norvasc) 5 mg PO DAILY [facility] Last Admin: 08/29/16 10:03 Dose: 5 mg Budesonide (Pulmicort Respules) 0.5 mg INH RQ12 [facility] Last Admin: 08/29/16 07:40 Dose: 0.5 mg Diphenhydramine HCl (Benadryl) 25 mg PO Q6 PRN PRN Reason: Allergy symptoms Last Admin: 08/29/16 10:22 Dose: 25 mg Enoxaparin Sodium (Lovenox) 30 mg SC DAILY [facility] Last Admin: 08/29/16 10:04 Dose: Not Given Home Med (Patient's Own Medication) 1 tab PO Q12H [facility] Last Admin: 08/29/16 06:22 Dose: 1 tab Home Med (Patient's Own Medication) 1 tab PO DAILY [facility] Last Admin: 08/29/16 10:04 Dose: 1 tab Tigecycline 50 mg/ Sodium (Chloride) 100 mls @ 100 mls/hr IVPB Q12H [facility] Last Admin: 08/29/16 02:02 Dose: 100 mls/hr Meropenem 1 gm/ Sodium (Chloride) 100 mls @ 100 mls/hr IVPB ONCE ONE Stop: 08/29/16 13:24 Meropenem 500 mg/ Sodium (Chloride) 100 mls @ 100 mls/hr IVPB Q8 [facility] Nystatin (Nystatin Oral Susp) 5 ml PO QID [facility] Last Admin: 08/29/16 10:03 Dose: 5 ml Pantoprazole Sodium (Protonix Ec Tab) 40 mg PO DAILY [facility] Last Admin: 08/29/16 10:03 Dose: 40 mg Prednisone (Prednisone Tab) 20 mg PO DAILY [facility] Last Admin: 08/29/16 10:03 Dose: 20 mg Promethazine HCl/Codeine (Phenergan/Codeine Oral Syrup) 5 ml PO Q6H [facility] Last Admin: 08/29/16 11:27 Dose: 5 ml - Labs Labs: 08/29/16 06:53 08/27/16 06:12 - Constitutional Appears: No Acute Distress - Head Exam Head Exam: NORMAL INSPECTION - Eye Exam Eye Exam: EOMI, PERRL - ENT Exam ENT Exam: Normal Oropharynx - Neck Exam Neck Exam: Normal Inspection - Respiratory Exam Respiratory Exam: Rhonchi, Wheezes - Cardiovascular Exam Cardiovascular Exam: REGULAR RHYTHM, +S1, +S2 - GI/Abdominal Exam GI & Abdominal Exam: Soft, Normal Bowel Sounds. absent: Tenderness - Extremities Exam Extremities Exam: Normal Capillary Refill, Pedal Edema. absent: Calf Tenderness - Neurological Exam Neurological Exam: Alert, Awake, CN II-XII Intact, Oriented x3 (HISTORY OBTAINED ) - Psychiatric Exam Psychiatric exam: Normal Mood - Skin Skin Exam: Normal Color, Warm Assessment and Plan (1) Pneumonia Assessment & Plan: ADD iv MERREM 1 G iv PIGGYBACK LOADING DOSE STAT 08/29/16 F/U MERREM iv 500 MG EVERY 8 HOURLY. SPOKE TO MICROBIOLOGY TO DO SENSITIVITY OF PSEUDOMONAS WITH MERREM PATIENT david FOR PRIMAXIN IS 2. ALSO TO CHECK FOR SENSITIVITY WITH AZACTAM. CONTINUE iv TYGACIL 100 MG LOADING DOSE,.08/20/16 F/U TYGACIL 50 MG EVERY 12 HOURLY FOR NOW-DAY 10 ON PREDNISONE 20 MG BY MOUTH ONCE DAILY 08/28/16 F/U PERTUSSIS SEROLOGY- PENDING. WATCH RENAL FUNCTIONS. PT TO GET TDAP VACCINATION BEFORE D/C. PULMONARY TOILET. RESPIRATORY /CONTACT PRECAUTIONS. Status: Resolved (2) Sputum culture positive for ESBL E. coli Status: Acute (3) Cough Status: Acute (4) Hypertension Status: Chronic (5) Thyroid nodule Status: Chronic
--- NOTE | 2016-08-29 17:14 | CP.PCM.PN ---
Subjective - Date & Time of Evaluation Date of Evaluation: 08/29/16 Time of Evaluation: 14:00 - Subjective Subjective: patient seen and examined. Sputum culture positive for Pseudomonas Still complaining of productive cough Afebrile Objective - Vital Signs/Intake and Output Vital Signs (last 24 hours): Temp Pulse Resp BP Pulse Ox 98.2 F 104 H 20 121/83 95 08/29/16 16:00 08/29/16 16:00 08/29/16 16:00 08/29/16 16:00 08/29/16 16:00 Intake and Output: 08/29/16 08/29/16 06:59 18:59 Intake Total 750 920 Balance 750 920 - Medications Medications: Current Medications Albuterol/Ipratropium (Duoneb 3 Mg/0.5 Mg (3 Ml) Ud) 3 ml INH RQ6 [facility] Last Admin: 08/29/16 13:30 Dose: 3 ml Amlodipine Besylate (Norvasc) 5 mg PO DAILY [facility] Last Admin: 08/29/16 10:03 Dose: 5 mg Budesonide (Pulmicort Respules) 0.5 mg INH RQ12 [facility] Last Admin: 08/29/16 07:40 Dose: 0.5 mg Diphenhydramine HCl (Benadryl) 25 mg PO Q6 PRN PRN Reason: Allergy symptoms Last Admin: 08/29/16 10:22 Dose: 25 mg Enoxaparin Sodium (Lovenox) 30 mg SC DAILY [facility] Last Admin: 08/29/16 10:04 Dose: Not Given Home Med (Patient's Own Medication) 1 tab PO Q12H [facility] Last Admin: 08/29/16 06:22 Dose: 1 tab Home Med (Patient's Own Medication) 1 tab PO DAILY [facility] Last Admin: 08/29/16 10:04 Dose: 1 tab Tigecycline 50 mg/ Sodium (Chloride) 100 mls @ 100 mls/hr IVPB Q12H [facility] Last Admin: 08/29/16 14:26 Dose: 100 mls/hr Meropenem 500 mg/ Sodium (Chloride) 100 mls @ 100 mls/hr IVPB Q8 [facility] Nystatin (Nystatin Oral Susp) 5 ml PO QID [facility] Last Admin: 08/29/16 14:26 Dose: 5 ml Pantoprazole Sodium (Protonix Ec Tab) 40 mg PO DAILY [facility] Last Admin: 08/29/16 10:03 Dose: 40 mg Prednisone (Prednisone Tab) 20 mg PO DAILY [facility] Last Admin: 08/29/16 10:03 Dose: 20 mg Promethazine HCl/Codeine (Phenergan/Codeine Oral Syrup) 5 ml PO Q6H [facility] Last Admin: 08/29/16 11:27 Dose: 5 ml - Labs Labs: 08/29/16 06:53 08/27/16 06:12 - Constitutional Appears: No Acute Distress - Head Exam Head Exam: ATRAUMATIC, NORMOCEPHALIC - Eye Exam Eye Exam: Normal appearance - ENT Exam ENT Exam: Mucous Membranes Moist - Neck Exam Neck Exam: Normal Inspection - Respiratory Exam Respiratory Exam: Rhonchi - Cardiovascular Exam Cardiovascular Exam: REGULAR RHYTHM - GI/Abdominal Exam GI & Abdominal Exam: Soft, Normal Bowel Sounds - Extremities Exam Extremities Exam: Normal Inspection - Neurological Exam Neurological Exam: Alert, Oriented x3 Assessment and Plan (1) Pseudomonas aeruginosa infection Assessment & Plan: Sputum culture positive for Pseudomonas/colonization Started on meropenem Continue nebulizer treatment Status: Acute (2) Sputum culture positive for ESBL E. coli Status: Acute (3) Cough Status: Acute
[2016-08-29] MEDS: Meropenem 500 MG in Sodium Chloride 0.9% 100 ML IVPB SCH (22:05)
[2016-08-30] MEDS: Albuterol-Ipratrop 3 mg / 0.5 (3 ml) UD INH SCH ×4 (01:30→19:51)
[2016-08-30] MEDS: Patient's Own Medication - Tablet/Capusle PO SCH ×2 (05:48→17:28)
[2016-08-30] MEDS: Promethazine/Cod 6.25mg-10mg/5ml Syr UD PO SCH ×4 (05:48→23:37)
[2016-08-30] MEDS: Meropenem 500 MG in Sodium Chloride 0.9% 100 ML IVPB SCH ×3 (05:51→22:01)
[2016-08-30] MEDS: Budesonide 0.5 mg/2 ml Inhal Susp UD INH SCH ×2 (08:12→19:51)
[2016-08-30] MEDS: Enoxaparin 30 mg Syringe SC SCH (10:15)
[2016-08-30] MEDS: Pantoprazole 40 mg EC Tab PO SCH (10:16)
[2016-08-30] MEDS: Nystatin 100,000 Units/ml Oral Susp 5 ml UD PO SCH ×4 (10:16→22:04)
[2016-08-30] MEDS: [UNRECOGNIZED DRUG - OTHER] PO SCH (10:20)
[2016-08-30] MEDS: MULTIVITAMIN PO SCH (10:20)
--- NOTE | 2016-08-30 13:58 | CP.PCM.PN ---
Subjective - Date & Time of Evaluation Date of Evaluation: 08/30/16 Time of Evaluation: 01:50 - Subjective Subjective: Afebrile Lsser cough. More comfotable. Culture of the sputum now is Klebsiella Pneumoniae and Aurogenosa.. Stared on . Objective - Vital Signs/Intake and Output Vital Signs (last 24 hours): Temp Pulse Resp BP Pulse Ox 98.8 F 112 H 20 128/81 98 08/30/16 08:00 08/30/16 08:00 08/30/16 08:00 08/30/16 08:00 08/30/16 08:00 Intake and Output: 08/30/16 08/30/16 06:59 18:59 Intake Total 1510 Balance 1510 - Medications Medications: Current Medications Albuterol/Ipratropium (Duoneb 3 Mg/0.5 Mg (3 Ml) Ud) 3 ml INH RQ6 [facility] Last Admin: 08/30/16 13:09 Dose: 3 ml Amlodipine Besylate (Norvasc) 5 mg PO DAILY [facility] Last Admin: 08/30/16 10:15 Dose: 5 mg Budesonide (Pulmicort Respules) 0.5 mg INH RQ12 [facility] Last Admin: 08/30/16 08:12 Dose: 0.5 mg Diphenhydramine HCl (Benadryl) 25 mg PO Q6 PRN PRN Reason: Allergy symptoms Last Admin: 08/30/16 10:15 Dose: 25 mg Enoxaparin Sodium (Lovenox) 30 mg SC DAILY [facility] Last Admin: 08/30/16 10:15 Dose: Not Given Home Med (Patient's Own Medication) 1 tab PO Q12H [facility] Last Admin: 08/30/16 05:48 Dose: 1 tab Home Med (Patient's Own Medication) 1 tab PO DAILY [facility] Last Admin: 08/30/16 10:20 Dose: 1 tab Meropenem 500 mg/ Sodium (Chloride) 100 mls @ 100 mls/hr IVPB Q8 [facility] Last Admin: 08/30/16 05:51 Dose: 100 mls/hr Tigecycline 50 mg/ Sodium (Chloride) 100 mls @ 100 mls/hr IVPB Q12H [facility] Nystatin (Nystatin Oral Susp) 5 ml PO QID [facility] Last Admin: 08/30/16 10:16 Dose: 5 ml Pantoprazole Sodium (Protonix Ec Tab) 40 mg PO DAILY [facility] Last Admin: 08/30/16 10:16 Dose: 40 mg Prednisone (Prednisone Tab) 20 mg PO DAILY [facility] Last Admin: 08/30/16 10:16 Dose: 20 mg Promethazine HCl/Codeine (Phenergan/Codeine Oral Syrup) 5 ml PO Q6H [facility] Last Admin: 08/30/16 11:20 Dose: 5 ml - Labs Labs: 08/29/16 06:53 08/27/16 06:12 - Constitutional Appears: Non-toxic, No Acute Distress - Head Exam Head Exam: ATRAUMATIC, NORMAL INSPECTION - Eye Exam Pupil Exam: PERRL - Neck Exam Neck Exam: Full ROM - Respiratory Exam Respiratory Exam: Rhonchi, NORMAL BREATHING PATTERN - Cardiovascular Exam Cardiovascular Exam: +S1, +S2 - GI/Abdominal Exam GI & Abdominal Exam: Soft - Rectal Exam Rectal Exam: Deferred - Neurological Exam Neurological Exam: Alert, Awake, Oriented x3 - Psychiatric Exam Psychiatric exam: Normal Affect, Normal Mood - Skin Skin Exam: Dry, Intact, Normal Color, Warm Assessment and Plan (1) Pneumonia Status: Resolved (2) Bronchitis Status: Acute (3) Hypertension Status: Chronic (4) Cholelithiasis Status: Chronic (5) Thyroid nodule Status: Chronic (6) Sputum culture positive for ESBL E. coli Status: Acute - Assessment and Plan (Free Text) Plan: Plan: Continue present antibiotic by IV q 8 hours.
--- NOTE | 2016-08-30 14:37 | CP.PCM.PN ---
Subjective - Date & Time of Evaluation Date of Evaluation: 08/30/16 Time of Evaluation: 14:37 - Subjective Subjective: AFEBRILE FEELING MUCH BETTER LESS COUGH LESS TIGHTNESS CHEST. TOLERATING IV MERREM /IV tYGACIL. SPUTUM 08/27/16 PSEUDOMONAS AERUGINOSA. SPUTUM 08/28/16 kLEBSIELLA PNEUMONIAE-PANSENSITIVE MULTIPLE ORGANISMS.-MUST R/O SINUSITUS. CT SINUSES W/O CONTRAST R/O SINUSITIS. -ORDERED Objective - Vital Signs/Intake and Output Vital Signs (last 24 hours): Temp Pulse Resp BP Pulse Ox 98.8 F 112 H 20 128/81 98 08/30/16 08:00 08/30/16 08:00 08/30/16 08:00 08/30/16 08:00 08/30/16 08:00 Intake and Output: 08/30/16 08/30/16 06:59 18:59 Intake Total 1510 Balance 1510 - Medications Medications: Current Medications Albuterol/Ipratropium (Duoneb 3 Mg/0.5 Mg (3 Ml) Ud) 3 ml INH RQ6 [facility] Last Admin: 08/30/16 13:09 Dose: 3 ml Amlodipine Besylate (Norvasc) 5 mg PO DAILY [facility] Last Admin: 08/30/16 10:15 Dose: 5 mg Budesonide (Pulmicort Respules) 0.5 mg INH RQ12 [facility] Last Admin: 08/30/16 08:12 Dose: 0.5 mg Diphenhydramine HCl (Benadryl) 25 mg PO Q6 PRN PRN Reason: Allergy symptoms Last Admin: 08/30/16 10:15 Dose: 25 mg Enoxaparin Sodium (Lovenox) 30 mg SC DAILY [facility] Last Admin: 08/30/16 10:15 Dose: Not Given Home Med (Patient's Own Medication) 1 tab PO Q12H [facility] Last Admin: 08/30/16 05:48 Dose: 1 tab Home Med (Patient's Own Medication) 1 tab PO DAILY [facility] Last Admin: 08/30/16 10:20 Dose: 1 tab Meropenem 500 mg/ Sodium (Chloride) 100 mls @ 100 mls/hr IVPB Q8 [facility] Last Admin: 08/30/16 13:53 Dose: 100 mls/hr Tigecycline 50 mg/ Sodium (Chloride) 100 mls @ 100 mls/hr IVPB Q12H [facility] Nystatin (Nystatin Oral Susp) 5 ml PO QID [facility] Last Admin: 08/30/16 13:53 Dose: 5 ml Pantoprazole Sodium (Protonix Ec Tab) 40 mg PO DAILY [facility] Last Admin: 08/30/16 10:16 Dose: 40 mg Prednisone (Prednisone Tab) 20 mg PO DAILY [facility] Last Admin: 08/30/16 10:16 Dose: 20 mg Promethazine HCl/Codeine (Phenergan/Codeine Oral Syrup) 5 ml PO Q6H [facility] Last Admin: 08/30/16 11:20 Dose: 5 ml - Labs Labs: 08/29/16 06:53 08/27/16 06:12 - Constitutional Appears: No Acute Distress - Head Exam Head Exam: NORMAL INSPECTION - Eye Exam Eye Exam: EOMI, PERRL - ENT Exam ENT Exam: Normal Oropharynx - Neck Exam Neck Exam: Normal Inspection - Respiratory Exam Respiratory Exam: Prolonged Expiratory Phase, Rhonchi - Cardiovascular Exam Cardiovascular Exam: REGULAR RHYTHM, +S1, +S2 - GI/Abdominal Exam GI & Abdominal Exam: Soft, Normal Bowel Sounds. absent: Tenderness, Organomegaly - Extremities Exam Extremities Exam: Normal Capillary Refill. absent: Calf Tenderness, Pedal Edema , Tenderness - Neurological Exam Neurological Exam: Alert, Awake, CN II-XII Intact, Normal Gait, Oriented x3 - Psychiatric Exam Psychiatric exam: Normal Mood - Skin Skin Exam: Normal Color, Warm Assessment and Plan (1) Pneumonia Assessment & Plan: ADD iv MERREM 1 G iv PIGGYBACK LOADING DOSE STAT 08/29/16 F/U MERREM iv 500 MG EVERY 8 HOURLY. SPOKE TO MICROBIOLOGY TO DO SENSITIVITY OF PSEUDOMONAS WITH MERREM PATIENT david FOR PRIMAXIN IS 2. ALSO TO CHECK FOR SENSITIVITY WITH AZACTAM. CONTINUE iv TYGACIL 100 MG LOADING DOSE,.08/20/16 F/U TYGACIL 50 MG EVERY 12 HOURLY FOR NOW-DAY 10 ON PREDNISONE 20 MG BY MOUTH ONCE DAILY 08/28/16 F/U PERTUSSIS SEROLOGY- PENDING. WATCH RENAL FUNCTIONS. PT TO GET TDAP VACCINATION BEFORE D/C. PULMONARY TOILET. RESPIRATORY /CONTACT PRECAUTIONS. CT SINUSES W/O CONTRAST R/O SINUSITIS Status: Resolved (2) Sputum culture positive for ESBL E. coli Status: Acute (3) Cough Status: Acute (4) Hypertension Status: Chronic (5) Thyroid nodule Status: Chronic
--- NOTE | 2016-08-30 15:39 | CT ---
PROCEDURE: CT SINUSES WITHOUT CONTRAST HISTORY: Sinusitis COMPARISON: None TECHNIQUE: Contiguous axial CT images of the paranasal sinuses were obtained. Coronal and sagittal reformats were generated. Radiation dose: Total exam DLP = 570.90 MGy-cm. This CT exam was performed using one or more of the following dose reduction techniques: Automated exposure control, adjustment of the mA and/or kV according to patient size, and/or use of iterative reconstruction technique. FINDINGS: FRONTAL SINUSES: Well developed and well aerated without mucosal thickening or fluid. ETHMOID SINUSES: Well developed and well aerated without fluid. There is scattered mucosal thickening in the right ethmoid air cells. SPHENOID SINUSES: Well developed and well aerated without mucosal thickening or fluid.. MAXILLARY SINUSES: Well developed and well aerated without fluid.Mild mucosal thickening in the right maxillary sinus. SINUS DRAINAGE: Osteomeatal complexes, frontal recesses and sphenoethmoid recesses clear. NASAL SEPTUM: There is a large right middle turbinate lalita bullosa and moderate deviation of nasal septum to the left. SKULL BASE: Unremarkable. TEMPORAL BONES: Middle ears and mastoid grossly unremarkable. OTHER FINDINGS: None. IMPRESSION: Mild chronic right maxillary and right ethmoid sinusitis. Large right middle turbinate lalita bullosa and moderate deviation of the nasal septum to the left.
[2016-08-31] MEDS: Albuterol-Ipratrop 3 mg / 0.5 (3 ml) UD INH SCH ×3 (01:20→15:16)
[2016-08-31] MEDS: Promethazine/Cod 6.25mg-10mg/5ml Syr UD PO SCH ×3 (05:43→17:48)
[2016-08-31] MEDS: Meropenem 500 MG in Sodium Chloride 0.9% 100 ML IVPB SCH ×3 (05:43→21:55)
[2016-08-31] MEDS: Patient's Own Medication - Tablet/Capusle PO SCH ×3 (05:43→17:48)
[2016-08-31] MEDS: Budesonide 0.5 mg/2 ml Inhal Susp UD INH SCH (08:24)
[2016-08-31] MEDS: MULTIVITAMIN PO SCH ×2 (10:24→11:22)
[2016-08-31] MEDS: Pantoprazole 40 mg EC Tab PO SCH (10:24)
[2016-08-31] MEDS: Nystatin 100,000 Units/ml Oral Susp 5 ml UD PO SCH ×4 (10:24→21:52)
[2016-08-31] MEDS: [UNRECOGNIZED DRUG - OTHER] PO SCH ×2 (10:24→11:22)
--- NOTE | 2016-08-31 10:33 | CP.PCM.PN ---
Subjective - Date & Time of Evaluation Date of Evaluation: 08/31/16 Time of Evaluation: 10:30 - Subjective Subjective: Afebrile. Lesser cough and SOB.Lesser sputum.C/S sputum 2 bacteria. Cat scan sinuses showd mild maxillary and ethmoidal sinusitis. Objective - Vital Signs/Intake and Output Vital Signs (last 24 hours): Temp Pulse Resp BP Pulse Ox 97.6 F 90 20 122/78 97 08/31/16 07:36 08/31/16 07:36 08/31/16 07:36 08/31/16 07:36 08/31/16 07:36 Intake and Output: 08/31/16 08/31/16 06:59 18:59 Intake Total 550 560 Balance 550 560 - Medications Medications: Current Medications Albuterol/Ipratropium (Duoneb 3 Mg/0.5 Mg (3 Ml) Ud) 3 ml INH RQ6 [facility] Last Admin: 08/31/16 08:24 Dose: 3 ml Amlodipine Besylate (Norvasc) 5 mg PO DAILY [facility] Last Admin: 08/30/16 10:15 Dose: 5 mg Budesonide (Pulmicort Respules) 0.5 mg INH RQ12 [facility] Last Admin: 08/31/16 08:24 Dose: 0.5 mg Diphenhydramine HCl (Benadryl) 25 mg PO Q6 PRN PRN Reason: Allergy symptoms Last Admin: 08/30/16 20:20 Dose: 25 mg Enoxaparin Sodium (Lovenox) 30 mg SC DAILY [facility] Last Admin: 08/30/16 10:15 Dose: Not Given Home Med (Patient's Own Medication) 1 tab PO Q12H [facility] Last Admin: 08/31/16 05:43 Dose: 1 tab Home Med (Patient's Own Medication) 1 tab PO DAILY [facility] Meropenem 500 mg/ Sodium (Chloride) 100 mls @ 100 mls/hr IVPB Q8 [facility] Last Admin: 08/31/16 05:43 Dose: 100 mls/hr Tigecycline 50 mg/ Sodium (Chloride) 100 mls @ 100 mls/hr IVPB Q12H [facility] Last Admin: 08/31/16 03:02 Dose: 100 mls/hr Nystatin (Nystatin Oral Susp) 5 ml PO QID [facility] Last Admin: 08/30/16 22:04 Dose: 5 ml Pantoprazole Sodium (Protonix Ec Tab) 40 mg PO DAILY [facility] Last Admin: 08/30/16 10:16 Dose: 40 mg Prednisone (Prednisone Tab) 20 mg PO DAILY [facility] Last Admin: 08/30/16 10:16 Dose: 20 mg Promethazine HCl/Codeine (Phenergan/Codeine Oral Syrup) 5 ml PO Q6H [facility] Last Admin: 08/31/16 05:43 Dose: 5 ml - Labs Labs: 08/29/16 06:53 08/27/16 06:12 - Constitutional Appears: Well, Non-toxic, No Acute Distress - Head Exam Head Exam: ATRAUMATIC, NORMAL INSPECTION, NORMOCEPHALIC - Eye Exam Pupil Exam: PERRL - ENT Exam ENT Exam: Mucous Membranes Moist - Neck Exam Neck Exam: Full ROM - Respiratory Exam Respiratory Exam: Decreased Breath Sounds, Rhonchi - Cardiovascular Exam Cardiovascular Exam: REGULAR RHYTHM, +S1, +S2 - GI/Abdominal Exam GI & Abdominal Exam: Soft, Normal Bowel Sounds - Rectal Exam Rectal Exam: Deferred - Extremities Exam Extremities Exam: Full ROM, Normal Inspection - Back Exam Back Exam: NORMAL INSPECTION - Neurological Exam Neurological Exam: Alert, Awake, Oriented x3 - Psychiatric Exam Psychiatric exam: Normal Affect, Normal Mood - Skin Skin Exam: Dry, Intact, Normal Color, Warm Assessment and Plan (1) Pneumonia Status: Resolved (2) Bronchitis Status: Acute (3) Hypertension Status: Chronic (4) Cholelithiasis Status: Chronic (5) Thyroid nodule Status: Chronic (6) Sputum culture positive for ESBL E. coli Status: Acute (7) Pseudomonas aeruginosa infection Status: Acute (8) Maxillary sinusitis, chronic Status: Chronic (9) Chronic ethmoidal sinusitis Status: Chronic - Assessment and Plan (Free Text) Plan: Plan : Continue IV Tygacil and MEREM
[2016-08-31] MEDS: Enoxaparin 30 mg Syringe SC SCH (11:07)
--- NOTE | 2016-08-31 12:31 | CP.PCM.PN ---
Subjective - Date & Time of Evaluation Date of Evaluation: 08/31/16 Time of Evaluation: 12:31 - Subjective Subjective: AFEBRILE VOICE SLIGHTLY HOARSE. STILL COUGHING USING SPIROMETRY TODAY. +VE B. PERTUSSIS SEROLOGY- FHA 101. (ACUTE INFECTION), N=<90 CT SINUSIS ;NOTED MILD MAXILLARY/ETHMOID SINUSITIS DC IV TYGACIL 08/20/16 (12TH DAY ) START IV ZITHROMAX 500MG OD DAILY.08/31/16 CONTINUE IV MERREM 500MG IV Q 8HRLY 08/29/16 FOR 7 DAYS MORE. Dtap vaccine in AM Objective - Vital Signs/Intake and Output Vital Signs (last 24 hours): Temp Pulse Resp BP Pulse Ox 97.6 F 90 20 122/78 97 08/31/16 07:36 08/31/16 07:36 08/31/16 07:36 08/31/16 07:36 08/31/16 07:36 Intake and Output: 08/31/16 08/31/16 06:59 18:59 Intake Total 550 560 Balance 550 560 - Medications Medications: Current Medications Albuterol/Ipratropium (Duoneb 3 Mg/0.5 Mg (3 Ml) Ud) 3 ml INH RQ6 [facility] Last Admin: 08/31/16 08:24 Dose: 3 ml Amlodipine Besylate (Norvasc) 5 mg PO DAILY [facility] Last Admin: 08/31/16 10:24 Dose: 5 mg Budesonide (Pulmicort Respules) 0.5 mg INH RQ12 [facility] Last Admin: 08/31/16 08:24 Dose: 0.5 mg Diphenhydramine HCl (Benadryl) 25 mg PO Q6 PRN PRN Reason: Allergy symptoms Last Admin: 08/31/16 10:23 Dose: 25 mg Enoxaparin Sodium (Lovenox) 30 mg SC DAILY [facility] Last Admin: 08/31/16 11:07 Dose: Not Given Home Med (Patient's Own Medication) 1 tab PO Q12H [facility] Last Admin: 08/31/16 05:43 Dose: 1 tab Home Med (Patient's Own Medication) 1 tab PO DAILY [facility] Meropenem 500 mg/ Sodium (Chloride) 100 mls @ 100 mls/hr IVPB Q8 [facility] Last Admin: 08/31/16 05:43 Dose: 100 mls/hr Tigecycline 50 mg/ Sodium (Chloride) 100 mls @ 100 mls/hr IVPB Q12H [facility] Last Admin: 08/31/16 03:02 Dose: 100 mls/hr Multivitamins (Hexavitamin) 1 tab PO DAILY [facility] Nystatin (Nystatin Oral Susp) 5 ml PO QID [facility] Last Admin: 08/31/16 10:24 Dose: 5 ml Pantoprazole Sodium (Protonix Ec Tab) 40 mg PO DAILY [facility] Last Admin: 08/31/16 10:24 Dose: 40 mg Prednisone (Prednisone Tab) 20 mg PO DAILY [facility] Last Admin: 08/31/16 10:24 Dose: 20 mg Promethazine HCl/Codeine (Phenergan/Codeine Oral Syrup) 5 ml PO Q6H [facility] Last Admin: 08/31/16 11:20 Dose: 5 ml - Labs Labs: 08/29/16 06:53 08/27/16 06:12 - Constitutional Appears: No Acute Distress - Head Exam Head Exam: NORMAL INSPECTION - Eye Exam Eye Exam: PERRL - ENT Exam ENT Exam: Normal Oropharynx - Neck Exam Neck Exam: Normal Inspection - Respiratory Exam Respiratory Exam: Rhonchi, Wheezes - Cardiovascular Exam Cardiovascular Exam: REGULAR RHYTHM, +S1, +S2 - GI/Abdominal Exam GI & Abdominal Exam: Soft, Normal Bowel Sounds - Extremities Exam Extremities Exam: Normal Capillary Refill. absent: Calf Tenderness, Pedal Edema - Neurological Exam Neurological Exam: Awake, CN II-XII Intact, Oriented x3, Reflexes Normal - Psychiatric Exam Psychiatric exam: Normal Mood - Skin Skin Exam: Normal Color, Warm Assessment and Plan (1) Pneumonia Status: Resolved (2) Sputum culture positive for ESBL E. coli Status: Acute (3) Cough Status: Acute (4) Hypertension Status: Chronic (5) Thyroid nodule Status: Chronic
[2016-08-31 13:10] LABS: CHLORIDE 93 mmol/L (98-107); POTASSIUM 3.9 mmol/L (3.6-5.2); SODIUM 129 mmol/L (132-148)
[2016-08-31 13:13] LABS: ALB/GLOB RATIO 0.7 (1.0-2.1); ALKALINE PHOSPHATASE 75 U/L (38-126); ALT/SGPT 50 U/L (9-52); AST/SGOT 26 U/L (14-36); BILIRUBIN,DIRECT 0.2 mg/dL (0.0-0.4); BILIRUBIN,TOTAL 0.5 mg/dL (0.2-1.3); BLOOD UREA NITROGEN 36 mg/dL (7-17); CALCIUM 7.8 mg/dl (8.6-10.4); CARBON DIOXIDE 28 mmol/L (22-30); GFR AFRICAN-AMERICAN > 60; GLUCOSE,RANDOM 121 mg/dL (65-105); TOTAL PROTEIN 5.5 g/dL (6.3-8.3)
[2016-08-31] MEDS ORDERED: Azithromycin 500mg/250ML NS 500 MG/250 ML BAG IVPB SCH (19:00)
--- NOTE | 2016-08-31 19:20 | CP.PCM.PN ---
Subjective - Date & Time of Evaluation Date of Evaluation: 08/31/16 Time of Evaluation: 11:00 - Subjective Subjective: Patient seen and examined. Still complaining of cough and hoarseness of voice Breathing much improved Afebrile On antibiotics as per infectious disease Objective - Vital Signs/Intake and Output Vital Signs (last 24 hours): Temp Pulse Resp BP Pulse Ox 98.4 F 97 H 20 136/76 96 08/31/16 15:00 08/31/16 15:00 08/31/16 15:00 08/31/16 15:00 08/31/16 15:00 Intake and Output: 08/31/16 09/01/16 18:59 06:59 Intake Total 1540 Balance 1540 - Medications Medications: Current Medications Albuterol/Ipratropium (Duoneb 3 Mg/0.5 Mg (3 Ml) Ud) 3 ml INH RQ6 [facility] Last Admin: 08/31/16 15:16 Dose: Not Given Amlodipine Besylate (Norvasc) 5 mg PO DAILY [facility] Last Admin: 08/31/16 10:24 Dose: 5 mg Budesonide (Pulmicort Respules) 0.5 mg INH RQ12 [facility] Last Admin: 08/31/16 08:24 Dose: 0.5 mg Diphenhydramine HCl (Benadryl) 25 mg PO Q6 PRN PRN Reason: Allergy symptoms Last Admin: 08/31/16 18:02 Dose: 25 mg Enoxaparin Sodium (Lovenox) 30 mg SC DAILY [facility] Last Admin: 08/31/16 11:07 Dose: Not Given Home Med (Patient's Own Medication) 1 tab PO Q12H [facility] Last Admin: 08/31/16 17:48 Dose: 1 tab Home Med (Patient's Own Medication) 1 tab PO DAILY [facility] Last Admin: 08/31/16 10:00 Dose: 1 tab Meropenem 500 mg/ Sodium (Chloride) 100 mls @ 100 mls/hr IVPB Q8 [facility] Last Admin: 08/31/16 13:48 Dose: 100 mls/hr Azithromycin 500 mg/ Sodium (Chloride) 250 mls @ 167 mls/hr IVPB Q24H [facility] Multivitamins (Hexavitamin) 1 tab PO DAILY [facility] Nystatin (Nystatin Oral Susp) 5 ml PO QID [facility] Last Admin: 08/31/16 17:48 Dose: 5 ml Pantoprazole Sodium (Protonix Ec Tab) 40 mg PO DAILY [facility] Last Admin: 08/31/16 10:24 Dose: 40 mg Prednisone (Prednisone Tab) 20 mg PO DAILY [facility] Last Admin: 08/31/16 10:24 Dose: 20 mg Promethazine HCl/Codeine (Phenergan/Codeine Oral Syrup) 5 ml PO Q6H [facility] Last Admin: 08/31/16 17:48 Dose: 5 ml - Labs Labs: 08/29/16 06:53 08/31/16 12:53 - Head Exam Head Exam: ATRAUMATIC, NORMOCEPHALIC - Eye Exam Eye Exam: Normal appearance - ENT Exam ENT Exam: Mucous Membranes Moist - Neck Exam Neck Exam: Full ROM, Normal Inspection - Respiratory Exam Respiratory Exam: Rhonchi - Cardiovascular Exam Cardiovascular Exam: REGULAR RHYTHM - GI/Abdominal Exam GI & Abdominal Exam: Soft, Normal Bowel Sounds - Extremities Exam Extremities Exam: Normal Inspection - Neurological Exam Neurological Exam: Alert, Oriented x3 Assessment and Plan (1) Pseudomonas aeruginosa infection Assessment & Plan: Continue antibiotics as per infectious disease Continue nebulizer treatment and prednisone Status: Acute (2) Sputum culture positive for ESBL E. coli Status: Acute (3) Cough Status: Acute
[2016-08-31] MEDS: Azithromycin 500 MG in Sodium Chloride 0.9% 250 ML IVPB SCH (21:00)
[2016-09-01] MEDS: Albuterol-Ipratrop 3 mg / 0.5 (3 ml) UD INH SCH ×3 (01:59→14:22)
[2016-09-01] MEDS: Promethazine/Cod 6.25mg-10mg/5ml Syr UD PO SCH ×3 (05:39→17:23)
[2016-09-01] MEDS: Patient's Own Medication - Tablet/Capusle PO SCH ×3 (05:39→17:24)
[2016-09-01] MEDS: Meropenem 500 MG in Sodium Chloride 0.9% 100 ML IVPB SCH ×3 (05:39→21:23)
[2016-09-01 06:35] LABS: BASO % 0.3 % (0.0-2.0); EOS # 0.2 K/uL (0.0-0.7); EOS % 1.7 % (0.0-4.0); HEMATOCRIT 35.2 % (34.0-47.0); LYMPH # 4.2 K/uL (1.0-4.3); LYMPH % 32.9 % (20.0-40.0); MEAN CELL VOLUME 89.6 fL (81.0-99.0); MEAN CORPUSCULAR HEMOGLOBIN 29.2 pg (27.0-31.0); MEAN CORPUSCULAR HGB CONC 32.6 g/dL (33.0-37.0); MONO # 0.8 K/uL (0.0-0.8); MONO % 6.2 % (0.0-10.0); RED CELL DISTRIBUTION WIDTH 13.5 % (11.5-14.5); WHITE BLOOD COUNT 12.8 K/uL (4.8-10.8)
[2016-09-01] MEDS: Budesonide 0.5 mg/2 ml Inhal Susp UD INH SCH ×2 (08:29→19:51)
[2016-09-01] MEDS: Pantoprazole 40 mg EC Tab PO SCH (10:00)
[2016-09-01] MEDS: Enoxaparin 30 mg Syringe SC SCH (10:00)
[2016-09-01] MEDS: Multiple Vitamins Tab PO SCH ×2 (10:05→10:10)
[2016-09-01] MEDS: Nystatin 100,000 Units/ml Oral Susp 5 ml UD PO SCH ×4 (10:08→22:45)
--- NOTE | 2016-09-01 10:56 | CP.PCM.PN ---
Subjective - Date & Time of Evaluation Date of Evaluation: 09/01/16 Time of Evaluation: 10:05 - Subjective Subjective: ZStill coughing. Afebrile. B. Pertussis IGE elevated..So Azitromycin by IV is reinstated. Nad also on MREM> Objective - Vital Signs/Intake and Output Vital Signs (last 24 hours): Temp Pulse Resp BP Pulse Ox 98.3 F 75 20 130/80 96 09/01/16 08:00 09/01/16 08:00 09/01/16 08:00 09/01/16 08:00 09/01/16 08:00 - Medications Medications: Current Medications Albuterol/Ipratropium (Duoneb 3 Mg/0.5 Mg (3 Ml) Ud) 3 ml INH RQ6 [facility] Last Admin: 09/01/16 08:30 Dose: 3 ml Amlodipine Besylate (Norvasc) 5 mg PO DAILY [facility] Last Admin: 09/01/16 10:00 Dose: 5 mg Budesonide (Pulmicort Respules) 0.5 mg INH RQ12 [facility] Last Admin: 09/01/16 08:29 Dose: 0.5 mg Diphenhydramine HCl (Benadryl) 25 mg PO Q6 PRN PRN Reason: Allergy symptoms Last Admin: 09/01/16 10:00 Dose: 25 mg Enoxaparin Sodium (Lovenox) 30 mg SC DAILY [facility] Last Admin: 09/01/16 10:00 Dose: Not Given Home Med (Patient's Own Medication) 1 tab PO Q12H [facility] Last Admin: 09/01/16 05:39 Dose: 1 tab Home Med (Patient's Own Medication) 1 tab PO DAILY [facility] Last Admin: 09/01/16 10:09 Dose: 1 tab Meropenem 500 mg/ Sodium (Chloride) 100 mls @ 100 mls/hr IVPB Q8 [facility] Last Admin: 09/01/16 05:39 Dose: 100 mls/hr Azithromycin 500 mg/ Sodium (Chloride) 250 mls @ 167 mls/hr IVPB Q24H [facility] Last Admin: 08/31/16 21:00 Dose: 167 mls/hr Multivitamins (Hexavitamin) 1 tab PO DAILY [facility] Last Admin: 09/01/16 10:10 Dose: 1 tab Nystatin (Nystatin Oral Susp) 5 ml PO QID [facility] Last Admin: 09/01/16 10:08 Dose: 5 ml Pantoprazole Sodium (Protonix Ec Tab) 40 mg PO DAILY [facility] Last Admin: 09/01/16 10:00 Dose: 40 mg Prednisone (Prednisone Tab) 20 mg PO DAILY [facility] Last Admin: 09/01/16 10:00 Dose: 20 mg Promethazine HCl/Codeine (Phenergan/Codeine Oral Syrup) 5 ml PO Q6H [facility] Last Admin: 09/01/16 05:39 Dose: 5 ml - Labs Labs: 09/01/16 06:21 08/31/16 12:53 - Constitutional Appears: Non-toxic, No Acute Distress - Head Exam Head Exam: ATRAUMATIC, NORMAL INSPECTION, NORMOCEPHALIC - Eye Exam Eye Exam: EOMI Pupil Exam: PERRL - ENT Exam ENT Exam: Mucous Membranes Moist - Neck Exam Neck Exam: Full ROM - Respiratory Exam Respiratory Exam: Decreased Breath Sounds, Prolonged Expiratory Phase, Rhonchi - Cardiovascular Exam Cardiovascular Exam: REGULAR RHYTHM - GI/Abdominal Exam GI & Abdominal Exam: Normal Bowel Sounds - Rectal Exam Rectal Exam: Deferred - Extremities Exam Extremities Exam: Normal Inspection - Back Exam Back Exam: Full ROM, NORMAL INSPECTION - Neurological Exam Neurological Exam: Alert, Awake, Oriented x3 - Psychiatric Exam Psychiatric exam: Normal Affect, Normal Mood - Skin Skin Exam: Dry, Intact, Normal Color, Warm Assessment and Plan (1) Pneumonia Status: Resolved (2) Bronchitis Status: Acute (3) Hypertension Status: Chronic (4) Cholelithiasis Status: Chronic (5) Thyroid nodule Status: Chronic (6) Sputum culture positive for ESBL E. coli Status: Acute (7) Pseudomonas aeruginosa infection Status: Acute (8) Maxillary sinusitis, chronic Status: Chronic (9) Chronic ethmoidal sinusitis Status: Chronic (10) B. pertussis Status: Acute - Assessment and Plan (Free Text) Plan: Plan: Continue IV Azithromycin and Merem. Continue PO prednisone.
--- NOTE | 2016-09-01 13:50 | CP.PCM.PN ---
Subjective - Date & Time of Evaluation Date of Evaluation: 09/01/16 Time of Evaluation: 13:50 - Subjective Subjective: afebrile. feeling claustrophobic in the room, feeling better. less wheeze/rhonchi. PT GIVEN A SHOT OF TDAP VACCINE TODAY.09/01/16 Objective - Vital Signs/Intake and Output Vital Signs (last 24 hours): Temp Pulse Resp BP Pulse Ox 98.3 F 75 20 130/80 96 09/01/16 08:00 09/01/16 08:00 09/01/16 08:00 09/01/16 08:00 09/01/16 08:00 - Medications Medications: Current Medications Albuterol/Ipratropium (Duoneb 3 Mg/0.5 Mg (3 Ml) Ud) 3 ml INH RQ6 [facility] Last Admin: 09/01/16 08:30 Dose: 3 ml Amlodipine Besylate (Norvasc) 5 mg PO DAILY [facility] Last Admin: 09/01/16 10:00 Dose: 5 mg Budesonide (Pulmicort Respules) 0.5 mg INH RQ12 [facility] Last Admin: 09/01/16 08:29 Dose: 0.5 mg Diphenhydramine HCl (Benadryl) 25 mg PO Q6 PRN PRN Reason: Allergy symptoms Last Admin: 09/01/16 10:00 Dose: 25 mg Enoxaparin Sodium (Lovenox) 30 mg SC DAILY [facility] Last Admin: 09/01/16 10:00 Dose: Not Given Home Med (Patient's Own Medication) 1 tab PO Q12H [facility] Last Admin: 09/01/16 05:39 Dose: 1 tab Home Med (Patient's Own Medication) 1 tab PO DAILY [facility] Last Admin: 09/01/16 10:09 Dose: 1 tab Meropenem 500 mg/ Sodium (Chloride) 100 mls @ 100 mls/hr IVPB Q8 [facility] Last Admin: 09/01/16 13:47 Dose: 100 mls/hr Azithromycin 500 mg/ Sodium (Chloride) 250 mls @ 167 mls/hr IVPB Q24H [facility] Last Admin: 08/31/16 21:00 Dose: 167 mls/hr Multivitamins (Hexavitamin) 1 tab PO DAILY [facility] Last Admin: 09/01/16 10:10 Dose: 1 tab Nystatin (Nystatin Oral Susp) 5 ml PO QID [facility] Last Admin: 09/01/16 13:48 Dose: 5 ml Pantoprazole Sodium (Protonix Ec Tab) 40 mg PO DAILY [facility] Last Admin: 09/01/16 10:00 Dose: 40 mg Prednisone (Prednisone Tab) 20 mg PO DAILY [facility] Last Admin: 09/01/16 10:00 Dose: 20 mg Promethazine HCl/Codeine (Phenergan/Codeine Oral Syrup) 5 ml PO Q6H [facility] Last Admin: 09/01/16 11:15 Dose: 5 ml - Labs Labs: 09/01/16 06:21 08/31/16 12:53 - Constitutional Appears: No Acute Distress - Head Exam Head Exam: NORMAL INSPECTION - Eye Exam Eye Exam: EOMI, PERRL - ENT Exam ENT Exam: Normal Oropharynx - Neck Exam Neck Exam: Normal Inspection - Respiratory Exam Respiratory Exam: Rhonchi, Wheezes - Cardiovascular Exam Cardiovascular Exam: REGULAR RHYTHM, +S1, +S2 - GI/Abdominal Exam GI & Abdominal Exam: Soft, Normal Bowel Sounds. absent: Organomegaly - Extremities Exam Extremities Exam: Normal Capillary Refill. absent: Calf Tenderness, Pedal Edema - Neurological Exam Neurological Exam: Alert, Awake, CN II-XII Intact, Normal Gait, Oriented x3, Reflexes Normal - Skin Skin Exam: Normal Color, Warm Assessment and Plan (1) Pneumonia Assessment & Plan: ON IV ZITHROMAX 500MG OD DAILY.08/31/16 X 5 DAYS CONTINUE IV MERREM 500MG IV Q 8HRLY 08/29/16 FOR 7 DAYS MORE. (COMPLETES ON ) CASE DISCUSSED WITH DR Justo JEAN-BAPTISTE.(PMD ) Status: Resolved (2) Sputum culture positive for ESBL E. coli Status: Acute (3) Cough Assessment & Plan: IMPROVING . +VE FOR BORDETELLA-pERTUSSIS . GIVEN Tdap IM 0.5ml today Status: Acute (4) Hypertension Status: Chronic (5) Thyroid nodule Status: Chronic
[2016-09-01] MEDS: Azithromycin 500 MG in Sodium Chloride 0.9% 250 ML IVPB SCH (20:07)
[2016-09-02] MEDS: Promethazine/Cod 6.25mg-10mg/5ml Syr UD PO SCH ×3 (00:38→12:14)
[2016-09-02] MEDS: Meropenem 500 MG in Sodium Chloride 0.9% 100 ML IVPB SCH ×3 (05:35→22:01)
[2016-09-02] MEDS: Patient's Own Medication - Tablet/Capusle PO SCH ×3 (05:35→17:43)
[2016-09-02] MEDS: Budesonide 0.5 mg/2 ml Inhal Susp UD INH SCH (08:27)
[2016-09-02] MEDS: Enoxaparin 30 mg Syringe SC SCH ×2 (09:32→09:44)
[2016-09-02] MEDS: Pantoprazole 40 mg EC Tab PO SCH (09:32)
[2016-09-02] MEDS: Multiple Vitamins Tab PO SCH ×2 (09:41→09:44)
[2016-09-02] MEDS: Nystatin 100,000 Units/ml Oral Susp 5 ml UD PO SCH ×4 (09:41→22:01)
--- NOTE | 2016-09-02 11:01 | CP.PCM.PN ---
Subjective - Date & Time of Evaluation Date of Evaluation: 09/02/16 Time of Evaluation: 10:55 - Subjective Subjective: Lesser cough, and SOB. Comfortable. Patient on Merem, and Azithromycin. Objective - Vital Signs/Intake and Output Vital Signs (last 24 hours): Temp Pulse Resp BP Pulse Ox 98.4 F 103 H 20 151/81 H 97 09/02/16 07:32 09/02/16 07:32 09/02/16 07:32 09/02/16 07:32 09/02/16 07:32 Intake and Output: 09/02/16 09/02/16 06:59 18:59 Intake Total 600 Balance 600 - Medications Medications: Current Medications Amlodipine Besylate (Norvasc) 5 mg PO DAILY [facility] Last Admin: 09/02/16 09:32 Dose: 5 mg Budesonide (Pulmicort Respules) 0.5 mg INH RQ12 [facility] Last Admin: 09/02/16 08:27 Dose: 0.5 mg Diphenhydramine HCl (Benadryl) 25 mg PO Q6 PRN PRN Reason: Allergy symptoms Last Admin: 09/02/16 09:49 Dose: 25 mg Enoxaparin Sodium (Lovenox) 30 mg SC DAILY [facility] Last Admin: 09/02/16 09:44 Dose: Not Given Home Med (Patient's Own Medication) 1 tab PO Q12H [facility] Last Admin: 09/02/16 05:35 Dose: 1 tab Home Med (Patient's Own Medication) 1 tab PO DAILY [facility] Last Admin: 09/02/16 09:41 Dose: 1 tab Meropenem 500 mg/ Sodium (Chloride) 100 mls @ 100 mls/hr IVPB Q8 [facility] Last Admin: 09/02/16 05:35 Dose: 100 mls/hr Azithromycin 500 mg/ Sodium (Chloride) 250 mls @ 167 mls/hr IVPB Q24H [facility] Last Admin: 09/01/16 20:07 Dose: 167 mls/hr Multivitamins (Hexavitamin) 1 tab PO DAILY [facility] Last Admin: 09/02/16 09:44 Dose: 1 tab Nystatin (Nystatin Oral Susp) 5 ml PO QID [facility] Last Admin: 09/02/16 09:41 Dose: 5 ml Pantoprazole Sodium (Protonix Ec Tab) 40 mg PO DAILY [facility] Last Admin: 09/02/16 09:32 Dose: 40 mg Prednisone (Prednisone Tab) 20 mg PO DAILY [facility] Last Admin: 09/02/16 09:32 Dose: 20 mg Promethazine HCl/Codeine (Phenergan/Codeine Oral Syrup) 5 ml PO Q6H [facility] Last Admin: 09/02/16 05:35 Dose: 5 ml - Labs Labs: 09/01/16 06:21 08/31/16 12:53 - Constitutional Appears: Non-toxic, No Acute Distress - Head Exam Head Exam: ATRAUMATIC, NORMAL INSPECTION, NORMOCEPHALIC - Eye Exam Pupil Exam: PERRL - ENT Exam ENT Exam: Mucous Membranes Moist - Neck Exam Neck Exam: Full ROM - Respiratory Exam Respiratory Exam: Rhonchi - Cardiovascular Exam Cardiovascular Exam: REGULAR RHYTHM, +S1, +S2 - GI/Abdominal Exam GI & Abdominal Exam: Soft, Normal Bowel Sounds - Rectal Exam Rectal Exam: Deferred - Extremities Exam Extremities Exam: Full ROM, Normal Inspection - Back Exam Back Exam: NORMAL INSPECTION - Neurological Exam Neurological Exam: Alert, Awake, Oriented x3, Reflexes Normal - Psychiatric Exam Psychiatric exam: Normal Affect, Normal Mood - Skin Skin Exam: Dry, Normal Color, Warm Assessment and Plan (1) Pneumonia Status: Resolved (2) Bronchitis Status: Acute (3) Hypertension Status: Chronic (4) Cholelithiasis Status: Chronic (5) Thyroid nodule Status: Chronic (6) Sputum culture positive for ESBL E. coli Status: Acute (7) Pseudomonas aeruginosa infection Status: Acute (8) Maxillary sinusitis, chronic Status: Chronic (9) Chronic ethmoidal sinusitis Status: Chronic (10) B. pertussis Status: Acute - Assessment and Plan (Free Text) Plan: Plan: Continue IV Merem, and Azithromycin. Prednisone po.
--- NOTE | 2016-09-02 13:00 | CP.PCM.PN ---
Subjective - Date & Time of Evaluation Date of Evaluation: 09/02/16 Time of Evaluation: 09:00 - Subjective Subjective: Patient seen and examined. Feeling better with much less cough and shortness of breath Being treated for pertussis, Pseudomonas and ESBL infection Objective - Vital Signs/Intake and Output Vital Signs (last 24 hours): Temp Pulse Resp BP Pulse Ox 98.4 F 103 H 20 151/81 H 97 09/02/16 07:32 09/02/16 07:32 09/02/16 07:32 09/02/16 07:32 09/02/16 07:32 Intake and Output: 09/02/16 09/02/16 06:59 18:59 Intake Total 600 Balance 600 - Medications Medications: Current Medications Amlodipine Besylate (Norvasc) 5 mg PO DAILY [facility] Last Admin: 09/02/16 09:32 Dose: 5 mg Budesonide (Pulmicort Respules) 0.5 mg INH RQ12 [facility] Last Admin: 09/02/16 08:27 Dose: 0.5 mg Diphenhydramine HCl (Benadryl) 25 mg PO Q6 PRN PRN Reason: Allergy symptoms Last Admin: 09/02/16 09:49 Dose: 25 mg Home Med (Patient's Own Medication) 1 tab PO Q12H [facility] Last Admin: 09/02/16 05:35 Dose: 1 tab Home Med (Patient's Own Medication) 1 tab PO DAILY [facility] Last Admin: 09/02/16 09:41 Dose: 1 tab Meropenem 500 mg/ Sodium (Chloride) 100 mls @ 100 mls/hr IVPB Q8 [facility] Last Admin: 09/02/16 05:35 Dose: 100 mls/hr Azithromycin 500 mg/ Sodium (Chloride) 250 mls @ 167 mls/hr IVPB Q24H [facility] Last Admin: 09/01/16 20:07 Dose: 167 mls/hr Multivitamins (Hexavitamin) 1 tab PO DAILY [facility] Last Admin: 09/02/16 09:44 Dose: 1 tab Nystatin (Nystatin Oral Susp) 5 ml PO QID [facility] Last Admin: 09/02/16 09:41 Dose: 5 ml Pantoprazole Sodium (Protonix Ec Tab) 40 mg PO DAILY [facility] Last Admin: 09/02/16 09:32 Dose: 40 mg Prednisone (Prednisone Tab) 20 mg PO DAILY [facility] Last Admin: 09/02/16 09:32 Dose: 20 mg Promethazine HCl/Codeine (Phenergan/Codeine Oral Syrup) 5 ml PO Q6 PRN PRN Reason: Cough - Labs Labs: 09/01/16 06:21 08/31/16 12:53 - Head Exam Head Exam: ATRAUMATIC, NORMOCEPHALIC - Eye Exam Eye Exam: Normal appearance - ENT Exam ENT Exam: Mucous Membranes Moist - Neck Exam Neck Exam: Normal Inspection - Respiratory Exam Respiratory Exam: Rhonchi - Cardiovascular Exam Cardiovascular Exam: REGULAR RHYTHM - GI/Abdominal Exam GI & Abdominal Exam: Soft, Normal Bowel Sounds - Extremities Exam Extremities Exam: Normal Inspection - Neurological Exam Neurological Exam: Alert, Oriented x3 Assessment and Plan (1) Pseudomonas aeruginosa infection Assessment & Plan: Continue antibiotics for pertussis, Pseudomonas and ESBL infection Continue prednisone and nebulizer treatment Status: Acute (2) Sputum culture positive for ESBL E. coli Status: Acute (3) Cough Status: Acute (4) B. pertussis Status: Acute
--- NOTE | 2016-09-02 13:33 | CP.PCM.PN ---
Subjective - Date & Time of Evaluation Date of Evaluation: 09/02/16 Time of Evaluation: 13:32 - Subjective Subjective: afebrile less COUGH/WHEEZE. NO REACTION FROM THE VACCINE. PRESENTLY ON IV ZITHROMAX FOR PERTUSSIS (WHOOPING COUGH ) AND /IV MERREM FOR PSEUDOMONAS AND +VE ESBL E COLI IN SPUTUM. LABS REVIEWED; Objective - Vital Signs/Intake and Output Vital Signs (last 24 hours): Temp Pulse Resp BP Pulse Ox 98.4 F 103 H 20 151/81 H 97 09/02/16 07:32 09/02/16 07:32 09/02/16 07:32 09/02/16 07:32 09/02/16 07:32 Intake and Output: 09/02/16 09/02/16 06:59 18:59 Intake Total 600 Balance 600 - Medications Medications: Current Medications Amlodipine Besylate (Norvasc) 5 mg PO DAILY [facility] Last Admin: 09/02/16 09:32 Dose: 5 mg Diphenhydramine HCl (Benadryl) 25 mg PO Q6 PRN PRN Reason: Allergy symptoms Last Admin: 09/02/16 09:49 Dose: 25 mg Home Med (Patient's Own Medication) 1 tab PO Q12H [facility] Last Admin: 09/02/16 05:35 Dose: 1 tab Home Med (Patient's Own Medication) 1 tab PO DAILY [facility] Last Admin: 09/02/16 09:41 Dose: 1 tab Meropenem 500 mg/ Sodium (Chloride) 100 mls @ 100 mls/hr IVPB Q8 [facility] Last Admin: 09/02/16 05:35 Dose: 100 mls/hr Azithromycin 500 mg/ Sodium (Chloride) 250 mls @ 167 mls/hr IVPB Q24H [facility] Last Admin: 09/01/16 20:07 Dose: 167 mls/hr Multivitamins (Hexavitamin) 1 tab PO DAILY [facility] Last Admin: 09/02/16 09:44 Dose: 1 tab Nystatin (Nystatin Oral Susp) 5 ml PO QID [facility] Last Admin: 09/02/16 09:41 Dose: 5 ml Pantoprazole Sodium (Protonix Ec Tab) 40 mg PO DAILY [facility] Last Admin: 09/02/16 09:32 Dose: 40 mg Prednisone (Prednisone Tab) 10 mg PO DAILY [facility] Promethazine HCl/Codeine (Phenergan/Codeine Oral Syrup) 5 ml PO Q6 PRN PRN Reason: Cough - Labs Labs: 09/01/16 06:21 08/31/16 12:53 - Constitutional Appears: No Acute Distress - Head Exam Head Exam: NORMAL INSPECTION - Eye Exam Eye Exam: EOMI, PERRL. absent: Scleral icterus - ENT Exam ENT Exam: Normal Oropharynx - Neck Exam Neck Exam: Normal Inspection - Respiratory Exam Respiratory Exam: Rhonchi, Wheezes (LESS) - Cardiovascular Exam Cardiovascular Exam: REGULAR RHYTHM, +S1, +S2 - GI/Abdominal Exam GI & Abdominal Exam: Soft, Normal Bowel Sounds. absent: Organomegaly - Extremities Exam Extremities Exam: Normal Capillary Refill. absent: Calf Tenderness, Pedal Edema - Neurological Exam Neurological Exam: Alert, Awake, CN II-XII Intact, Normal Gait, Oriented x3 - Psychiatric Exam Psychiatric exam: Normal Mood - Skin Skin Exam: Normal Color, Warm Assessment and Plan (1) Pneumonia Assessment & Plan: ON IV ZITHROMAX 500MG OD DAILY.08/31/16 X 4 DAYS MORE CONTINUE IV MERREM 500MG IV Q 8HRLY 08/29/16 FOR 6 DAYS MORE. (COMPLETES ON ) PULMONARY TOILET. SPIROMETRY PRN . Status: Resolved (2) Sputum culture positive for ESBL E. coli Status: Acute (3) Cough Status: Acute (4) B. pertussis Assessment & Plan: PT.ON ZITHROMAX 500MG IV X5DAYS RECEIVED TDAP IM 09/01/16 Status: Acute (5) Hypertension Status: Chronic (6) Thyroid nodule Status: Chronic
[2016-09-02] MEDS: Azithromycin 500 MG in Sodium Chloride 0.9% 250 ML IVPB SCH (22:03)
[2016-09-02] MEDS: Promethazine/Cod 6.25mg-10mg/5ml Syr UD PO PRN (22:07)
[2016-09-03] MEDS: Promethazine/Cod 6.25mg-10mg/5ml Syr UD PO PRN ×2 (05:06→21:48)
[2016-09-03] MEDS: Patient's Own Medication - Tablet/Capusle PO SCH ×4 (05:06→17:45)
[2016-09-03] MEDS: Meropenem 500 MG in Sodium Chloride 0.9% 100 ML IVPB SCH ×3 (05:08→21:48)
[2016-09-03] MEDS: Multiple Vitamins Tab PO SCH (10:02)
[2016-09-03] MEDS: Nystatin 100,000 Units/ml Oral Susp 5 ml UD PO SCH ×4 (10:02→21:48)
[2016-09-03] MEDS: Pantoprazole 40 mg EC Tab PO SCH (10:02)
--- NOTE | 2016-09-03 10:46 | CP.PCM.PN ---
Subjective - Date & Time of Evaluation Date of Evaluation: 09/03/16 Time of Evaluation: 10:35 - Subjective Subjective: Pateint still coughing. C.O headaches. C/PO bump at the left occipital area where she hit when she fell. X-ray was negative. Physical no swelling at the site Objective - Vital Signs/Intake and Output Vital Signs (last 24 hours): Temp Pulse Resp BP Pulse Ox 98.1 F 98 H 20 112/67 96 09/03/16 08:00 09/03/16 08:00 09/03/16 08:00 09/03/16 08:00 09/03/16 08:00 Intake and Output: 09/03/16 09/03/16 06:59 18:59 Intake Total 1070 Balance 1070 - Medications Medications: Current Medications Amlodipine Besylate (Norvasc) 5 mg PO DAILY [facility] Last Admin: 09/03/16 10:02 Dose: 5 mg Diphenhydramine HCl (Benadryl) 25 mg PO Q6 PRN PRN Reason: Allergy symptoms Last Admin: 09/03/16 10:01 Dose: 25 mg Home Med (Patient's Own Medication) 1 tab PO Q12H [facility] Last Admin: 09/03/16 05:38 Dose: Not Given Home Med (Patient's Own Medication) 1 tab PO DAILY [facility] Last Admin: 09/03/16 10:03 Dose: 1 tab Meropenem 500 mg/ Sodium (Chloride) 100 mls @ 100 mls/hr IVPB Q8 [facility] Last Admin: 09/03/16 05:08 Dose: 100 mls/hr Azithromycin 500 mg/ Sodium (Chloride) 250 mls @ 167 mls/hr IVPB Q24H [facility] Last Admin: 09/02/16 22:03 Dose: 167 mls/hr Multivitamins (Hexavitamin) 1 tab PO DAILY [facility] Last Admin: 09/03/16 10:02 Dose: 1 tab Nystatin (Nystatin Oral Susp) 5 ml PO QID [facility] Last Admin: 09/03/16 10:02 Dose: 5 ml Pantoprazole Sodium (Protonix Ec Tab) 40 mg PO DAILY [facility] Last Admin: 09/03/16 10:02 Dose: 40 mg Prednisone (Prednisone Tab) 10 mg PO DAILY [facility] Last Admin: 09/03/16 10:02 Dose: 10 mg Promethazine HCl/Codeine (Phenergan/Codeine Oral Syrup) 5 ml PO Q6 PRN PRN Reason: Cough Last Admin: 09/03/16 05:06 Dose: 5 ml - Labs Labs: 09/01/16 06:21 08/31/16 12:53 - Constitutional Appears: Combative - Head Exam Head Exam: ATRAUMATIC, NORMAL INSPECTION, NORMOCEPHALIC - Eye Exam Eye Exam: EOMI, Normal appearance Pupil Exam: PERRL - ENT Exam ENT Exam: Mucous Membranes Moist - Neck Exam Neck Exam: Full ROM, Normal Inspection - Respiratory Exam Respiratory Exam: Rhonchi, NORMAL BREATHING PATTERN - Cardiovascular Exam Cardiovascular Exam: +S1, +S2 - GI/Abdominal Exam GI & Abdominal Exam: Normal Bowel Sounds - Rectal Exam Rectal Exam: Deferred - Back Exam Back Exam: Full ROM, NORMAL INSPECTION - Neurological Exam Neurological Exam: Alert, Awake, Oriented x3 - Psychiatric Exam Psychiatric exam: Normal Affect, Normal Mood - Skin Skin Exam: Dry, Intact, Normal Color, Warm Assessment and Plan (1) Pneumonia Status: Resolved (2) Bronchitis Status: Acute (3) Hypertension Status: Chronic (4) Cholelithiasis Status: Chronic (5) Thyroid nodule Status: Chronic (6) Sputum culture positive for ESBL E. coli Status: Acute (7) Pseudomonas aeruginosa infection Status: Acute (8) Maxillary sinusitis, chronic Status: Chronic (9) Chronic ethmoidal sinusitis Status: Chronic (10) B. pertussis Status: Acute - Assessment and Plan (Free Text) Plan: Plan: Continue IV Merem and Azithromycin Expectorant.
[2016-09-03 11:50] LABS: BASO # 0.1 K/uL (0.0-0.2); BASO % 0.5 % (0.0-2.0); EOS # 0.3 K/uL (0.0-0.7); EOS % 2.4 % (0.0-4.0); HEMATOCRIT 33.6 % (34.0-47.0); LYMPH # 3.9 K/uL (1.0-4.3); LYMPH % 28.4 % (20.0-40.0); MEAN CORPUSCULAR HEMOGLOBIN 30.5 pg (27.0-31.0); MEAN CORPUSCULAR HGB CONC 34.3 g/dL (33.0-37.0); MEAN PLATELET VOLUME 6.9 fL (7.2-11.7); MONO # 0.9 K/uL (0.0-0.8); MONO % 6.3 % (0.0-10.0); RED CELL DISTRIBUTION WIDTH 13.3 % (11.5-14.5); WHITE BLOOD COUNT 13.9 K/uL (4.8-10.8)
[2016-09-03 11:58] LABS: CHLORIDE 93 mmol/L (98-107)
[2016-09-03 11:59] LABS: POTASSIUM 3.3 mmol/L (3.6-5.2); SODIUM 131 mmol/L (132-148)
[2016-09-03 12:01] LABS: ALB/GLOB RATIO 0.9 (1.0-2.1); ALKALINE PHOSPHATASE 76 U/L (38-126); ALT/SGPT 40 U/L (9-52); AST/SGOT 19 U/L (14-36); BILIRUBIN,TOTAL 0.4 mg/dL (0.2-1.3); BLOOD UREA NITROGEN 21 mg/dL (7-17); CARBON DIOXIDE 31 mmol/L (22-30); GFR AFRICAN-AMERICAN > 60; TOTAL PROTEIN 5.3 g/dL (6.3-8.3)
[2016-09-03 12:02] LABS: CALCIUM 7.9 mg/dl (8.6-10.4); GLUCOSE,RANDOM 101 mg/dL (65-105)
[2016-09-03] MEDS: Potassium Chloride 20 mEq ER Tab PO SCH (13:23)
--- NOTE | 2016-09-03 13:50 | CP.PCM.PN ---
Subjective - Date & Time of Evaluation Date of Evaluation: 09/03/16 Time of Evaluation: 13:50 - Subjective Subjective: AFEBRILE, FEELING BETTER LESS COUGH/LESS WHEEZE C/O PAIN AND OCCIPITAL REGION SCALP WITH HISTORY OF TRAUMA LAST WEEK NO HEMATOMA OR ABRASION NOTED. Objective - Vital Signs/Intake and Output Vital Signs (last 24 hours): Temp Pulse Resp BP Pulse Ox 98.1 F 98 H 20 112/67 96 09/03/16 08:00 09/03/16 08:00 09/03/16 08:00 09/03/16 08:00 09/03/16 08:00 Intake and Output: 09/03/16 09/03/16 06:59 18:59 Intake Total 1070 Balance 1070 - Medications Medications: Current Medications Amlodipine Besylate (Norvasc) 5 mg PO DAILY [facility] Last Admin: 09/03/16 10:02 Dose: 5 mg Diphenhydramine HCl (Benadryl) 25 mg PO Q6 PRN PRN Reason: Allergy symptoms Last Admin: 09/03/16 10:01 Dose: 25 mg Home Med (Patient's Own Medication) 1 tab PO Q12H [facility] Last Admin: 09/03/16 05:38 Dose: Not Given Home Med (Patient's Own Medication) 1 tab PO DAILY [facility] Last Admin: 09/03/16 10:03 Dose: 1 tab Meropenem 500 mg/ Sodium (Chloride) 100 mls @ 100 mls/hr IVPB Q8 [facility] Last Admin: 09/03/16 13:23 Dose: 100 mls/hr Azithromycin 500 mg/ Sodium (Chloride) 250 mls @ 167 mls/hr IVPB Q24H [facility] Last Admin: 09/02/16 22:03 Dose: 167 mls/hr Multivitamins (Hexavitamin) 1 tab PO DAILY [facility] Last Admin: 09/03/16 10:02 Dose: 1 tab Nystatin (Nystatin Oral Susp) 5 ml PO QID [facility] Last Admin: 09/03/16 13:23 Dose: 5 ml Pantoprazole Sodium (Protonix Ec Tab) 40 mg PO DAILY [facility] Last Admin: 09/03/16 10:02 Dose: 40 mg Potassium Chloride (K-Dur 20 Meq Er Tab) 20 meq PO DAILY [facility] Last Admin: 09/03/16 13:23 Dose: 20 meq Prednisone (Prednisone Tab) 10 mg PO DAILY [facility] Last Admin: 09/03/16 10:02 Dose: 10 mg Promethazine HCl/Codeine (Phenergan/Codeine Oral Syrup) 5 ml PO Q6 PRN PRN Reason: Cough Last Admin: 09/03/16 05:06 Dose: 5 ml - Labs Labs: 09/03/16 11:42 09/03/16 11:42 - Constitutional Appears: No Acute Distress - Head Exam Head Exam: NORMAL INSPECTION - Eye Exam Eye Exam: EOMI, PERRL - ENT Exam ENT Exam: Normal Oropharynx - Neck Exam Neck Exam: Normal Inspection - Respiratory Exam Respiratory Exam: Rhonchi, Wheezes (MINIMAL) - Cardiovascular Exam Cardiovascular Exam: REGULAR RHYTHM, +S1, +S2 - GI/Abdominal Exam GI & Abdominal Exam: Soft, Normal Bowel Sounds. absent: Organomegaly - Extremities Exam Extremities Exam: Normal Capillary Refill. absent: Calf Tenderness, Pedal Edema - Neurological Exam Neurological Exam: Alert, Awake, CN II-XII Intact, Normal Gait, Oriented x3, Reflexes Normal - Psychiatric Exam Psychiatric exam: Normal Mood - Skin Skin Exam: Normal Color, Warm Assessment and Plan (1) Pneumonia Assessment & Plan: ON IV ZITHROMAX 500MG OD DAILY.08/31/16 X 3 DAYS MORE CONTINUE IV MERREM 500MG IV Q 8HRLY 08/29/16 FOR 5 DAYS MORE. (COMPLETES ON ) PULMONARY TOILET. SPIROMETRY PRN . Status: Resolved (2) Sputum culture positive for ESBL E. coli Status: Acute (3) Cough Status: Acute (4) B. pertussis Assessment & Plan: PATIENT RECEIVED tDAP FOR BORDETELLA PERTUSSIS. iv zITHROMAX 500 MG iv PIGGYBACK ONCE A DAY DAILY FOR 5 DAYS ORDERED. Status: Acute (5) Hypertension Status: Chronic (6) Thyroid nodule Status: Chronic
--- NOTE | 2016-09-03 16:36 | CP.PCM.PN ---
Subjective - Date & Time of Evaluation Date of Evaluation: 09/03/16 Time of Evaluation: 07:30 - Subjective Subjective: Patient seen and examined. Complaining of headache occipital area Denies blurring of vision Still complaining of slight cough but overall breathing much improved Objective - Vital Signs/Intake and Output Vital Signs (last 24 hours): Temp Pulse Resp BP Pulse Ox 98.1 F 98 H 20 112/67 96 09/03/16 08:00 09/03/16 08:00 09/03/16 08:00 09/03/16 08:00 09/03/16 08:00 Intake and Output: 09/03/16 09/03/16 06:59 18:59 Intake Total 1070 900 Balance 1070 900 - Medications Medications: Current Medications Amlodipine Besylate (Norvasc) 5 mg PO DAILY [facility] Last Admin: 09/03/16 10:02 Dose: 5 mg Diphenhydramine HCl (Benadryl) 25 mg PO Q6 PRN PRN Reason: Allergy symptoms Last Admin: 09/03/16 16:13 Dose: 25 mg Home Med (Patient's Own Medication) 1 tab PO Q12H [facility] Last Admin: 09/03/16 05:38 Dose: Not Given Home Med (Patient's Own Medication) 1 tab PO DAILY [facility] Last Admin: 09/03/16 10:03 Dose: 1 tab Meropenem 500 mg/ Sodium (Chloride) 100 mls @ 100 mls/hr IVPB Q8 [facility] Last Admin: 09/03/16 13:23 Dose: 100 mls/hr Azithromycin 500 mg/ Sodium (Chloride) 250 mls @ 167 mls/hr IVPB Q24H [facility] Last Admin: 09/02/16 22:03 Dose: 167 mls/hr Multivitamins (Hexavitamin) 1 tab PO DAILY [facility] Last Admin: 09/03/16 10:02 Dose: 1 tab Nystatin (Nystatin Oral Susp) 5 ml PO QID [facility] Last Admin: 09/03/16 13:23 Dose: 5 ml Pantoprazole Sodium (Protonix Ec Tab) 40 mg PO DAILY [facility] Last Admin: 09/03/16 10:02 Dose: 40 mg Potassium Chloride (K-Dur 20 Meq Er Tab) 20 meq PO DAILY [facility] Last Admin: 09/03/16 13:23 Dose: 20 meq Prednisone (Prednisone Tab) 10 mg PO DAILY [facility] Last Admin: 09/03/16 10:02 Dose: 10 mg Promethazine HCl/Codeine (Phenergan/Codeine Oral Syrup) 5 ml PO Q6 PRN PRN Reason: Cough Last Admin: 09/03/16 05:06 Dose: 5 ml - Labs Labs: 09/03/16 11:42 09/03/16 11:42 - Head Exam Head Exam: ATRAUMATIC, NORMOCEPHALIC - Eye Exam Eye Exam: Normal appearance - ENT Exam ENT Exam: Mucous Membranes Moist - Respiratory Exam Respiratory Exam: Clear to Ausculation Bilateral - Cardiovascular Exam Cardiovascular Exam: REGULAR RHYTHM - GI/Abdominal Exam GI & Abdominal Exam: Soft Assessment and Plan (1) Pseudomonas aeruginosa infection Status: Acute (2) Sputum culture positive for ESBL E. coli Status: Acute (3) Cough Status: Acute (4) B. pertussis Status: Acute
[2016-09-03] MEDS: Azithromycin 500 MG in Sodium Chloride 0.9% 250 ML IVPB SCH (19:54)
[2016-09-04] MEDS: Meropenem 500 MG in Sodium Chloride 0.9% 100 ML IVPB SCH ×3 (06:02→21:52)
[2016-09-04] MEDS: Patient's Own Medication - Tablet/Capusle PO SCH ×3 (06:07→17:34)
[2016-09-04] MEDS: Potassium Chloride 20 mEq ER Tab PO SCH (09:36)
[2016-09-04] MEDS: Pantoprazole 40 mg EC Tab PO SCH (09:36)
[2016-09-04] MEDS: Multiple Vitamins Tab PO SCH (09:36)
[2016-09-04] MEDS: Nystatin 100,000 Units/ml Oral Susp 5 ml UD PO SCH ×4 (09:36→21:25)
[2016-09-04] MEDS: Promethazine/Cod 6.25mg-10mg/5ml Syr UD PO PRN ×2 (09:37→21:31)
--- NOTE | 2016-09-04 11:07 | CP.PCM.PN ---
Subjective - Date & Time of Evaluation Date of Evaluation: 09/04/16 Time of Evaluation: 11:05 - Subjective Subjective: Afebrile. Comfortable. Still with cough but not as before. No SOB. Objective - Vital Signs/Intake and Output Vital Signs (last 24 hours): Temp Pulse Resp BP Pulse Ox 98.3 F 81 20 140/81 96 09/03/16 15:00 09/03/16 15:00 09/03/16 15:00 09/03/16 15:00 09/03/16 15:00 Intake and Output: 09/04/16 09/04/16 06:59 18:59 Intake Total 580 Balance 580 - Medications Medications: Current Medications Amlodipine Besylate (Norvasc) 5 mg PO DAILY [facility] Last Admin: 09/04/16 09:36 Dose: 5 mg Diphenhydramine HCl (Benadryl) 25 mg PO Q6 PRN PRN Reason: Allergy symptoms Last Admin: 09/04/16 09:36 Dose: 25 mg Home Med (Patient's Own Medication) 1 tab PO Q12H [facility] Last Admin: 09/04/16 06:07 Dose: 1 tab Home Med (Patient's Own Medication) 1 tab PO DAILY [facility] Last Admin: 09/04/16 09:37 Dose: 1 tab Meropenem 500 mg/ Sodium (Chloride) 100 mls @ 100 mls/hr IVPB Q8 [facility] Last Admin: 09/04/16 06:02 Dose: 100 mls/hr Azithromycin 500 mg/ Sodium (Chloride) 250 mls @ 167 mls/hr IVPB Q24H [facility] Last Admin: 09/03/16 19:54 Dose: 167 mls/hr Multivitamins (Hexavitamin) 1 tab PO DAILY [facility] Last Admin: 09/04/16 09:36 Dose: 1 tab Nystatin (Nystatin Oral Susp) 5 ml PO QID [facility] Last Admin: 09/04/16 09:36 Dose: 5 ml Pantoprazole Sodium (Protonix Ec Tab) 40 mg PO DAILY [facility] Last Admin: 09/04/16 09:36 Dose: 40 mg Potassium Chloride (K-Dur 20 Meq Er Tab) 20 meq PO DAILY [facility] Last Admin: 09/04/16 09:36 Dose: 20 meq Prednisone (Prednisone Tab) 10 mg PO DAILY [facility] Last Admin: 09/04/16 09:37 Dose: 10 mg Promethazine HCl/Codeine (Phenergan/Codeine Oral Syrup) 5 ml PO Q6 PRN PRN Reason: Cough Last Admin: 09/04/16 09:37 Dose: 5 ml - Labs Labs: 09/03/16 11:42 09/03/16 11:42 - Constitutional Appears: Non-toxic - Head Exam Head Exam: ATRAUMATIC, NORMAL INSPECTION, NORMOCEPHALIC - Eye Exam Pupil Exam: PERRL - ENT Exam ENT Exam: Mucous Membranes Moist - Respiratory Exam Respiratory Exam: Rhonchi - Cardiovascular Exam Cardiovascular Exam: +S1, +S2 - GI/Abdominal Exam GI & Abdominal Exam: Soft, Normal Bowel Sounds - Rectal Exam Rectal Exam: Deferred - Extremities Exam Extremities Exam: Full ROM, Normal Inspection - Back Exam Back Exam: Full ROM - Neurological Exam Neurological Exam: Alert, Awake, Oriented x3, Reflexes Normal - Psychiatric Exam Psychiatric exam: Normal Affect, Normal Mood - Skin Skin Exam: Dry, Intact, Normal Color, Warm Assessment and Plan (1) Pneumonia Status: Resolved (2) Bronchitis Status: Acute (3) Hypertension Status: Chronic (4) Cholelithiasis Status: Ruled-out (5) Thyroid nodule Status: Chronic (6) Sputum culture positive for ESBL E. coli Status: Acute (7) Pseudomonas aeruginosa infection Status: Acute (8) Maxillary sinusitis, chronic Status: Chronic (9) Chronic ethmoidal sinusitis Status: Chronic (10) B. pertussis Status: Acute - Assessment and Plan (Free Text) Plan: Plan: Contiunue IV Merem and Azitjhromycin. X 3 days more.
--- NOTE | 2016-09-04 12:40 | CP.PCM.PN ---
Subjective - Date & Time of Evaluation Date of Evaluation: 09/04/16 Time of Evaluation: 12:40 - Subjective Subjective: AFEBRILE, +COUGH BUT LESS -VE SOB SECRETIONS LESS THICK AND TENACIOUS,LOOSENING UP. Objective - Vital Signs/Intake and Output Vital Signs (last 24 hours): Temp Pulse Resp BP Pulse Ox 98.3 F 81 20 140/81 96 09/03/16 15:00 09/03/16 15:00 09/03/16 15:00 09/03/16 15:00 09/03/16 15:00 Intake and Output: 09/04/16 09/04/16 06:59 18:59 Intake Total 580 500 Balance 580 500 - Medications Medications: Current Medications Amlodipine Besylate (Norvasc) 5 mg PO DAILY [facility] Last Admin: 09/04/16 09:36 Dose: 5 mg Diphenhydramine HCl (Benadryl) 25 mg PO Q6 PRN PRN Reason: Allergy symptoms Last Admin: 09/04/16 09:36 Dose: 25 mg Home Med (Patient's Own Medication) 1 tab PO Q12H [facility] Last Admin: 09/04/16 06:07 Dose: 1 tab Home Med (Patient's Own Medication) 1 tab PO DAILY [facility] Last Admin: 09/04/16 09:37 Dose: 1 tab Meropenem 500 mg/ Sodium (Chloride) 100 mls @ 100 mls/hr IVPB Q8 [facility] Last Admin: 09/04/16 06:02 Dose: 100 mls/hr Azithromycin 500 mg/ Sodium (Chloride) 250 mls @ 167 mls/hr IVPB Q24H [facility] Last Admin: 09/03/16 19:54 Dose: 167 mls/hr Multivitamins (Hexavitamin) 1 tab PO DAILY [facility] Last Admin: 09/04/16 09:36 Dose: 1 tab Nystatin (Nystatin Oral Susp) 5 ml PO QID [facility] Last Admin: 09/04/16 09:36 Dose: 5 ml Pantoprazole Sodium (Protonix Ec Tab) 40 mg PO DAILY [facility] Last Admin: 09/04/16 09:36 Dose: 40 mg Potassium Chloride (K-Dur 20 Meq Er Tab) 20 meq PO DAILY [facility] Last Admin: 09/04/16 09:36 Dose: 20 meq Prednisone (Prednisone Tab) 10 mg PO DAILY [facility] Last Admin: 09/04/16 09:37 Dose: 10 mg Promethazine HCl/Codeine (Phenergan/Codeine Oral Syrup) 5 ml PO Q6 PRN PRN Reason: Cough Last Admin: 09/04/16 09:37 Dose: 5 ml - Labs Labs: 09/03/16 11:42 09/03/16 11:42 - Constitutional Appears: No Acute Distress - Head Exam Head Exam: NORMAL INSPECTION - Eye Exam Eye Exam: EOMI, PERRL - ENT Exam ENT Exam: Normal Oropharynx - Neck Exam Neck Exam: Normal Inspection - Respiratory Exam Respiratory Exam: Wheezes (LESS B/L.) - Cardiovascular Exam Cardiovascular Exam: REGULAR RHYTHM, +S1, +S2 - GI/Abdominal Exam GI & Abdominal Exam: Soft, Normal Bowel Sounds. absent: Organomegaly - Extremities Exam Extremities Exam: absent: Calf Tenderness, Pedal Edema - Neurological Exam Neurological Exam: Alert, Awake, CN II-XII Intact, Normal Gait, Oriented x3, Reflexes Normal - Psychiatric Exam Psychiatric exam: Normal Mood - Skin Skin Exam: Normal Color, Warm Assessment and Plan (1) Pneumonia Assessment & Plan: ON IV ZITHROMAX 500MG OD DAILY.08/31/16 X 2 DAYS MORE CONTINUE IV MERREM 500MG IV Q 8HRLY 08/29/16 FOR 4 DAYS MORE. (COMPLETES ON ) PULMONARY TOILET. SPIROMETRY PRN . Status: Resolved (2) Sputum culture positive for ESBL E. coli Status: Acute (3) Cough Status: Acute (4) B. pertussis Assessment & Plan: PATIENT RECEIVED tDAP FOR BORDETELLA PERTUSSIS. iv zITHROMAX 500 MG iv PIGGYBACK ONCE A DAY DAILY FOR 5 DAYS ORDERED. RESPIRATORY ISOLATION. Status: Acute (5) Hypertension Status: Chronic (6) Thyroid nodule Status: Chronic
--- NOTE | 2016-09-04 13:57 | RAD ---
HISTORY: pertussis COMPARISON: No prior. TECHNIQUE: Chest PA and lateral FINDINGS: LUNGS: Re- demonstrated is in situ right-sided PICC line with tip in the brachiocephalic/SVC junction. . Mild bibasilar atelectasis. PLEURA: No significant pleural effusion identified. No pneumothorax apparent. CARDIOVASCULAR: Heart size within range of normal. OSSEOUS STRUCTURES: No significant abnormalities. VISUALIZED UPPER ABDOMEN: Normal. OTHER FINDINGS: Re- demonstrated are metallic surgical clips left axillary region unchanged. IMPRESSION: Suspect minor bibasilar atelectasis.
[2016-09-04] MEDS: Azithromycin 500 MG in Sodium Chloride 0.9% 250 ML IVPB SCH (21:32)
[2016-09-05] MEDS: Promethazine/Cod 6.25mg-10mg/5ml Syr UD PO PRN ×2 (05:39→22:17)
[2016-09-05] MEDS: Patient's Own Medication - Tablet/Capusle PO SCH ×3 (05:39→18:00)
[2016-09-05] MEDS: Meropenem 500 MG in Sodium Chloride 0.9% 100 ML IVPB SCH ×3 (05:39→22:17)
--- NOTE | 2016-09-05 08:03 | CP.PCM.PN ---
Subjective - Date & Time of Evaluation Date of Evaluation: 09/05/16 Time of Evaluation: 07:00 - Subjective Subjective: Afebrile. Comfortable. No SOB, lesser cough. Phlegm is loose. Lesser sputm. Objective - Vital Signs/Intake and Output Vital Signs (last 24 hours): Temp Pulse Resp BP Pulse Ox 98.6 F 103 H 20 143/82 96 09/04/16 15:00 09/04/16 15:00 09/04/16 15:00 09/04/16 15:00 09/04/16 15:00 Intake and Output: 09/05/16 09/05/16 06:59 18:59 Intake Total 650 Output Total 500 Balance 150 - Medications Medications: Current Medications Amlodipine Besylate (Norvasc) 5 mg PO DAILY [facility] Last Admin: 09/04/16 09:36 Dose: 5 mg Diphenhydramine HCl (Benadryl) 25 mg PO Q6 PRN PRN Reason: Allergy symptoms Last Admin: 09/04/16 21:31 Dose: 25 mg Home Med (Patient's Own Medication) 1 tab PO Q12H [facility] Last Admin: 09/05/16 05:39 Dose: 1 tab Home Med (Patient's Own Medication) 1 tab PO DAILY [facility] Last Admin: 09/04/16 09:37 Dose: 1 tab Meropenem 500 mg/ Sodium (Chloride) 100 mls @ 100 mls/hr IVPB Q8 [facility] Last Admin: 09/05/16 05:39 Dose: 100 mls/hr Azithromycin 500 mg/ Sodium (Chloride) 250 mls @ 167 mls/hr IVPB Q24H [facility] Last Admin: 09/04/16 21:32 Dose: 167 mls/hr Multivitamins (Hexavitamin) 1 tab PO DAILY [facility] Last Admin: 09/04/16 09:36 Dose: 1 tab Nystatin (Nystatin Oral Susp) 5 ml PO QID [facility] Last Admin: 09/04/16 21:25 Dose: 5 ml Pantoprazole Sodium (Protonix Ec Tab) 40 mg PO DAILY [facility] Last Admin: 09/04/16 09:36 Dose: 40 mg Potassium Chloride (K-Dur 20 Meq Er Tab) 20 meq PO DAILY [facility] Last Admin: 09/04/16 09:36 Dose: 20 meq Prednisone (Prednisone Tab) 10 mg PO DAILY [facility] Last Admin: 09/04/16 09:37 Dose: 10 mg Promethazine HCl/Codeine (Phenergan/Codeine Oral Syrup) 5 ml PO Q6 PRN PRN Reason: Cough Last Admin: 09/05/16 05:39 Dose: 5 ml - Labs Labs: 09/03/16 11:42 09/03/16 11:42 - Constitutional Appears: Well, No Acute Distress - Head Exam Head Exam: ATRAUMATIC, NORMAL INSPECTION, NORMOCEPHALIC - Eye Exam Eye Exam: EOMI Pupil Exam: PERRL - Neck Exam Neck Exam: Full ROM - Respiratory Exam Respiratory Exam: Rhonchi - Cardiovascular Exam Cardiovascular Exam: +S1, +S2 - GI/Abdominal Exam GI & Abdominal Exam: Soft, Normal Bowel Sounds - Rectal Exam Rectal Exam: Deferred - Extremities Exam Extremities Exam: Normal Inspection - Back Exam Back Exam: Full ROM, NORMAL INSPECTION - Neurological Exam Neurological Exam: Alert, Awake, Oriented x3 - Psychiatric Exam Psychiatric exam: Normal Affect - Skin Skin Exam: Dry, Intact, Normal Color Assessment and Plan (1) Pneumonia Status: Resolved (2) Bronchitis Status: Acute (3) Hypertension Status: Chronic (4) Cholelithiasis Status: Ruled-out (5) Thyroid nodule Status: Chronic (6) Sputum culture positive for ESBL E. coli Status: Acute (7) Pseudomonas aeruginosa infection Status: Acute (8) Maxillary sinusitis, chronic Status: Chronic (9) Chronic ethmoidal sinusitis Status: Chronic (10) B. pertussis Status: Acute - Assessment and Plan (Free Text) Plan: plan: Continue IV Azithromycin and Merem.
[2016-09-05] MEDS: Multiple Vitamins Tab PO SCH (09:48)
[2016-09-05] MEDS: Pantoprazole 40 mg EC Tab PO SCH (09:48)
[2016-09-05] MEDS: Nystatin 100,000 Units/ml Oral Susp 5 ml UD PO SCH ×4 (09:48→22:00)
[2016-09-05] MEDS: Potassium Chloride 20 mEq ER Tab PO SCH (09:49)
--- NOTE | 2016-09-05 19:09 | CP.PCM.PN ---
Subjective - Date & Time of Evaluation Date of Evaluation: 09/05/16 Time of Evaluation: 19:09 - Subjective Subjective: afebrile FEELING MUCH BETTER. DENIES MUCH COUGH. NO SOB. CXR ; NOTED BIBASILAR ATELECTASIS Objective - Vital Signs/Intake and Output Vital Signs (last 24 hours): Temp Pulse Resp BP Pulse Ox 98.3 F 89 20 146/98 H 97 09/05/16 15:00 09/05/16 15:00 09/05/16 15:00 09/05/16 15:00 09/05/16 15:00 - Medications Medications: Current Medications Amlodipine Besylate (Norvasc) 5 mg PO DAILY [facility] Last Admin: 09/05/16 09:49 Dose: 5 mg Diphenhydramine HCl (Benadryl) 25 mg PO Q6 PRN PRN Reason: Allergy symptoms Last Admin: 09/05/16 14:22 Dose: 25 mg Home Med (Patient's Own Medication) 1 tab PO Q12H [facility] Last Admin: 09/05/16 18:00 Dose: 1 tab Home Med (Patient's Own Medication) 1 tab PO DAILY [facility] Last Admin: 09/05/16 09:55 Dose: 1 tab Meropenem 500 mg/ Sodium (Chloride) 100 mls @ 100 mls/hr IVPB Q8 [facility] Last Admin: 09/05/16 14:22 Dose: 100 mls/hr Azithromycin 500 mg/ Sodium (Chloride) 250 mls @ 167 mls/hr IVPB Q24H [facility] Last Admin: 09/04/16 21:32 Dose: 167 mls/hr Multivitamins (Hexavitamin) 1 tab PO DAILY [facility] Last Admin: 09/05/16 09:48 Dose: 1 tab Nystatin (Nystatin Oral Susp) 5 ml PO QID [facility] Last Admin: 09/05/16 17:59 Dose: 5 ml Pantoprazole Sodium (Protonix Ec Tab) 40 mg PO DAILY [facility] Last Admin: 09/05/16 09:48 Dose: 40 mg Potassium Chloride (K-Dur 20 Meq Er Tab) 20 meq PO DAILY [facility] Last Admin: 09/05/16 09:49 Dose: 20 meq Prednisone (Prednisone Tab) 10 mg PO DAILY [facility] Last Admin: 09/05/16 09:49 Dose: 10 mg Promethazine HCl/Codeine (Phenergan/Codeine Oral Syrup) 5 ml PO Q6 PRN PRN Reason: Cough Last Admin: 09/05/16 05:39 Dose: 5 ml - Labs Labs: 09/03/16 11:42 09/03/16 11:42 - Constitutional Appears: No Acute Distress - Head Exam Head Exam: NORMAL INSPECTION - Eye Exam Eye Exam: EOMI, PERRL - ENT Exam ENT Exam: Normal Oropharynx - Neck Exam Neck Exam: Normal Inspection - Respiratory Exam Respiratory Exam: Rhonchi (OCCASIONAL). absent: Wheezes - GI/Abdominal Exam GI & Abdominal Exam: Soft, Normal Bowel Sounds. absent: Organomegaly - Extremities Exam Extremities Exam: Normal Capillary Refill. absent: Calf Tenderness, Pedal Edema - Neurological Exam Neurological Exam: Awake, CN II-XII Intact, Normal Gait, Oriented x3, Reflexes Normal - Psychiatric Exam Psychiatric exam: Normal Mood - Skin Skin Exam: Normal Color, Warm Assessment and Plan (1) Pneumonia Assessment & Plan: ON IV ZITHROMAX 500MG OD DAILY.08/31/16 X 1 DAYS MORE CONTINUE IV MERREM 500MG IV Q 8HRLY 08/29/16 FOR 3 DAYS MORE. (COMPLETES ON ) PULMONARY TOILET. SPIROMETRY PRN . Status: Resolved (2) Sputum culture positive for ESBL E. coli Status: Acute (3) Cough Status: Acute (4) B. pertussis Status: Acute (5) Hypertension Status: Chronic (6) Thyroid nodule Status: Chronic
[2016-09-05] MEDS: Azithromycin 500 MG in Sodium Chloride 0.9% 250 ML IVPB SCH (20:50)
[2016-09-06] MEDS: Patient's Own Medication - Tablet/Capusle PO SCH ×3 (05:28→17:37)
[2016-09-06] MEDS: Meropenem 500 MG in Sodium Chloride 0.9% 100 ML IVPB SCH ×3 (06:00→22:15)
[2016-09-06 07:03] LABS: BASO # 0.1 K/uL (0.0-0.2); BASO % 0.6 % (0.0-2.0); EOS # 0.4 K/uL (0.0-0.7); EOS % 3.4 % (0.0-4.0); HEMATOCRIT 32.5 % (34.0-47.0); LYMPH # 3.3 K/uL (1.0-4.3); LYMPH % 30.3 % (20.0-40.0); MEAN CELL VOLUME 88.7 fL (81.0-99.0); MEAN CORPUSCULAR HEMOGLOBIN 29.9 pg (27.0-31.0); MEAN CORPUSCULAR HGB CONC 33.7 g/dL (33.0-37.0); MEAN PLATELET VOLUME 6.9 fL (7.2-11.7); MONO # 0.6 K/uL (0.0-0.8); MONO % 5.9 % (0.0-10.0); RED CELL DISTRIBUTION WIDTH 13.4 % (11.5-14.5)
[2016-09-06] MEDS: Potassium Chloride 20 mEq ER Tab PO SCH (10:11)
[2016-09-06] MEDS: Nystatin 100,000 Units/ml Oral Susp 5 ml UD PO SCH ×4 (10:12→22:16)
[2016-09-06] MEDS: Pantoprazole 40 mg EC Tab PO SCH (10:12)
[2016-09-06] MEDS: Multiple Vitamins Tab PO SCH (10:12)
--- NOTE | 2016-09-06 11:47 | CP.PCM.PN ---
Subjective - Date & Time of Evaluation Date of Evaluation: 09/06/16 Time of Evaluation: 11:15 - Subjective Subjective: Afebrile. Comfortable. No SOB, much lesser cough. Objective - Vital Signs/Intake and Output Vital Signs (last 24 hours): Temp Pulse Resp BP Pulse Ox 98.4 F 85 20 137/85 98 09/06/16 07:56 09/06/16 07:56 09/06/16 07:56 09/06/16 00:00 09/06/16 07:56 Intake and Output: 09/06/16 09/06/16 06:59 18:59 Intake Total 850 Balance 850 - Medications Medications: Current Medications Amlodipine Besylate (Norvasc) 5 mg PO DAILY [facility] Last Admin: 09/06/16 10:12 Dose: 5 mg Diphenhydramine HCl (Benadryl) 25 mg PO Q6 PRN PRN Reason: Allergy symptoms Last Admin: 09/06/16 10:10 Dose: 25 mg Home Med (Patient's Own Medication) 1 tab PO Q12H [facility] Last Admin: 09/06/16 05:28 Dose: 1 tab Home Med (Patient's Own Medication) 1 tab PO DAILY [facility] Last Admin: 09/06/16 10:13 Dose: 1 tab Meropenem 500 mg/ Sodium (Chloride) 100 mls @ 100 mls/hr IVPB Q8 [facility] Last Admin: 09/05/16 22:17 Dose: 100 mls/hr Azithromycin 500 mg/ Sodium (Chloride) 250 mls @ 167 mls/hr IVPB Q24H [facility] Last Admin: 09/05/16 20:50 Dose: 167 mls/hr Multivitamins (Hexavitamin) 1 tab PO DAILY [facility] Last Admin: 09/06/16 10:12 Dose: 1 tab Nystatin (Nystatin Oral Susp) 5 ml PO QID [facility] Last Admin: 09/06/16 10:12 Dose: 5 ml Pantoprazole Sodium (Protonix Ec Tab) 40 mg PO DAILY [facility] Last Admin: 09/06/16 10:12 Dose: 40 mg Potassium Chloride (K-Dur 20 Meq Er Tab) 20 meq PO DAILY [facility] Last Admin: 09/06/16 10:11 Dose: 20 meq Prednisone (Prednisone Tab) 10 mg PO DAILY [facility] Last Admin: 09/06/16 10:12 Dose: 10 mg Promethazine HCl/Codeine (Phenergan/Codeine Oral Syrup) 5 ml PO Q6 PRN PRN Reason: Cough Last Admin: 09/05/16 22:17 Dose: 5 ml - Labs Labs: 09/06/16 07:00 09/03/16 11:42 - Constitutional Appears: Well - Head Exam Head Exam: ATRAUMATIC, NORMAL INSPECTION, NORMOCEPHALIC - Eye Exam Eye Exam: EOMI, Normal appearance Pupil Exam: NORMAL ACCOMODATION, PERRL - ENT Exam ENT Exam: Mucous Membranes Moist - Neck Exam Neck Exam: Full ROM - Respiratory Exam Respiratory Exam: Rhonchi - Cardiovascular Exam Cardiovascular Exam: +S1, +S2 - GI/Abdominal Exam GI & Abdominal Exam: Soft, Normal Bowel Sounds - Rectal Exam Rectal Exam: Deferred - Back Exam Back Exam: Full ROM, NORMAL INSPECTION - Neurological Exam Neurological Exam: Alert, Awake, Normal Gait, Oriented x3, Reflexes Normal - Psychiatric Exam Psychiatric exam: Normal Affect, Normal Mood - Skin Skin Exam: Dry, Intact, Normal Color, Warm Assessment and Plan (1) Pneumonia Status: Resolved (2) Bronchitis Status: Acute (3) Hypertension Status: Chronic (4) Cholelithiasis Status: Ruled-out (5) Thyroid nodule Status: Chronic (6) Sputum culture positive for ESBL E. coli Status: Acute (7) Pseudomonas aeruginosa infection Status: Acute (8) Maxillary sinusitis, chronic Status: Chronic (9) Chronic ethmoidal sinusitis Status: Chronic (10) B. pertussis Status: Acute - Assessment and Plan (Free Text) Plan: Plan: Continue IV Merem and Azithromycin.
[2016-09-06 15:32] LABS: CHLORIDE 97 mmol/L (98-107)
[2016-09-06 15:33] LABS: POTASSIUM 4.2 mmol/L (3.6-5.2); SODIUM 133 mmol/L (132-148)
[2016-09-06 15:35] LABS: AST/SGOT 26 U/L (14-36); BILIRUBIN,TOTAL 0.3 mg/dL (0.2-1.3); BLOOD UREA NITROGEN 25 mg/dL (7-17); CARBON DIOXIDE 31 mmol/L (22-30); GFR AFRICAN-AMERICAN > 60
[2016-09-06 15:36] LABS: ALKALINE PHOSPHATASE 69 U/L (38-126); ALT/SGPT 47 U/L (9-52); CALCIUM 8.4 mg/dl (8.6-10.4); GLUCOSE,RANDOM 110 mg/dL (65-105)
[2016-09-06] MEDS: Azithromycin 500 MG in Sodium Chloride 0.9% 250 ML IVPB SCH (20:40)
[2016-09-06] MEDS: Promethazine/Cod 6.25mg-10mg/5ml Syr UD PO PRN (20:40)
[2016-09-07] MEDS: Meropenem 500 MG in Sodium Chloride 0.9% 100 ML IVPB SCH (05:32)
[2016-09-07] MEDS: Patient's Own Medication - Tablet/Capusle PO SCH (05:33)
[2016-09-07 08:39] VITALS: BP 148/90; PULSE 109; TEMP 98; O2SAT 96
--- NOTE | 2016-09-07 09:21 | CP.PCM.DIS ---
Provider - Provider Date of Admission: 08/12/16 19:15 Attending physician: Florence Olsen MD Time Spent in preparation of Discharge (in minutes): 60 Diagnosis - Discharge Diagnosis (1) Pneumonia Status: Resolved (2) Bronchitis Status: Resolved (3) Hypertension Status: Chronic (4) Cholelithiasis Status: Ruled-out (5) Thyroid nodule Status: Chronic (6) Sputum culture positive for ESBL E. coli Status: Resolved (7) Pseudomonas aeruginosa infection Status: Resolved (8) Maxillary sinusitis, chronic Status: Chronic (9) Chronic ethmoidal sinusitis Status: Chronic (10) B. pertussis Status: Resolved Hospital Course - Lab Results Lab Results: Micro Results 08/28/16 10:40 Sputum Gram Stain - Final 08/28/16 10:40 Sputum Sputum Culture - Final Klebsiella Pneumoniae Ssp Pneu 08/27/16 Unknown Sputum Gram Stain - Final 08/27/16 Unknown Sputum Sputum Culture - Final Pseudomonas Aeruginosa 08/22/16 19:27 Urine,Clean Catch Urine Culture - Final No Growth (<1,000 CFU/ML) 08/21/16 17:00 Naris MRSA Culture (Admit) - Final MRSA NOT DETECTED 08/18/16 11:00 Sputum Gram Stain - Final 08/18/16 11:00 Sputum Sputum Culture - Final Escherichia Coli 08/12/16 19:24 Blood-Venous Blood Culture - Final NO GROWTH AFTER 5 DAYS 08/12/16 19:24 Blood-Venous Gram Stain - Final TEST NOT PERFORMED 08/12/16 19:24 Blood-Venous Blood Culture - Final NO GROWTH AFTER 5 DAYS 08/12/16 19:24 Blood-Venous Gram Stain - Final TEST NOT PERFORMED Most Recent Lab Values WBC 11.0 K/uL (4.8-10.8) H 09/06/16 07:00 RBC 3.67 Mil/uL (3.80-5.20) L 09/06/16 07:00 Hgb 11.0 g/dL (11.0-16.0) 09/06/16 07:00 Hct 32.5 % (34.0-47.0) L 09/06/16 07:00 MCV 88.7 fL (81.0-99.0) 09/06/16 07:00 MCH 29.9 pg (27.0-31.0) 09/06/16 07:00 MCHC 33.7 g/dL (33.0-37.0) 09/06/16 07:00 RDW 13.4 % (11.5-14.5) 09/06/16 07:00 Plt Count 162 K/uL (130-400) 09/06/16 07:00 MPV 6.9 fL (7.2-11.7) L 09/06/16 07:00 Neut % (Auto) 59.8 % (50.0-75.0) 09/06/16 07:00 Lymph % (Auto) 30.3 % (20.0-40.0) 09/06/16 07:00 Gallia % (Auto) 5.9 % (0.0-10.0) 09/06/16 07:00 Eos % (Auto) 3.4 % (0.0-4.0) 09/06/16 07:00 Baso % (Auto) 0.6 % (0.0-2.0) 09/06/16 07:00 Neut # 6.6 K/uL (1.8-7.0) 09/06/16 07:00 Lymph # 3.3 K/uL (1.0-4.3) 09/06/16 07:00 Gallia # 0.6 K/uL (0.0-0.8) 09/06/16 07:00 Eos # 0.4 K/uL (0.0-0.7) 09/06/16 07:00 Baso # 0.1 K/uL (0.0-0.2) 09/06/16 07:00 Neutrophils % (Manual) 94 % (50-75) H 08/24/16 13:11 Lymphocytes % (Manual) 2 % (20-40) L 08/24/16 13:11 Monocytes % (Manual) 4 % (0-10) 08/24/16 13:11 Platelet Estimate Normal (NORMAL) 08/24/16 13:11 RBC Morphology Normal 08/24/16 13:11 ESR 13 mm/hr (0-20) 08/21/16 07:01 Puncture Site Rra 08/12/16 18:44 pCO2 30 mm/Hg (35-45) L 08/12/16 18:44 pO2 80 mm/Hg (80-100) 08/12/16 18:44 HCO3 27.4 mmol/L (21-28) 08/12/16 18:44 ABG pH 7.53 (7.35-7.45) H 08/12/16 18:44 ABG Total CO2 26.0 mmol/L (22-28) 08/12/16 18:44 ABG O2 Saturation 96.9 % (95-98) 08/12/16 18:44 ABG Base Excess 3.3 mmol/L (-2.0-3.0) H 08/12/16 18:44 ABG Hemoglobin 15.4 g/dL (11.7-17.4) 08/12/16 18:44 ABG Carboxyhemoglobin 1.3 % (0.5-1.5) 08/12/16 18:44 POC ABG HHb (Measured) 3.0 % (0.0-5.0) 08/12/16 18:44 ABG Methemoglobin 1.0 % (0.0-3.0) 08/12/16 18:44 Jaron Test Pos 08/12/16 18:44 Hgb O2 Saturation 94.7 % (95.0-98.0) L 08/12/16 18:44 Sodium 133 mmol/L (132-148) 09/06/16 15:20 Potassium 4.2 mmol/L (3.6-5.2) 09/06/16 15:20 Chloride 97 mmol/L (98-107) L 09/06/16 15:20 Carbon Dioxide 31 mmol/L (22-30) H 09/06/16 15:20 Anion Gap 9 (10-20) L 09/06/16 15:20 BUN 25 mg/dL (7-17) H 09/06/16 15:20 Creatinine 0.7 MG/DL (0.7-1.2) 09/06/16 15:20 Est GFR ( Amer) > 60 09/06/16 15:20 Est GFR (Non-Af Amer) > 60 09/06/16 15:20 POC Glucose (mg/dL) 118 mg/dL (65-110) H 08/26/16 10:27 Random Glucose 110 mg/dL (65-105) H 09/06/16 15:20 Hemoglobin A1c 6.1 % (4.2-6.5) 09/06/16 13:25 Calcium 8.4 mg/dl (8.6-10.4) L 09/06/16 15:20 Total Bilirubin 0.3 mg/dL (0.2-1.3) 09/06/16 15:20 Direct Bilirubin 0.2 mg/dL (0.0-0.4) 08/31/16 12:53 AST 26 U/L (14-36) 09/06/16 15:20 ALT 47 U/L (9-52) 09/06/16 15:20 Alkaline Phosphatase 69 U/L (38-126) 09/06/16 15:20 Total Creatine Kinase 21 U/L (30-135) L 08/31/16 12:53 C-React Prot High Sens 0.66 mg/L (1.00-3.00) L 08/21/16 07:01 NT-Pro-B Natriuret Pep 17.1 pg/mL (0-900) 08/12/16 17:51 Total Protein 6.0 g/dL (6.3-8.3) L 09/06/16 15:20 Albumin 3.0 g/dL (3.5-5.0) L 09/06/16 15:20 Globulin 3.1 gm/dL (2.2-3.9) 09/06/16 15:20 Albumin/Globulin Ratio 1.0 (1.0-2.1) 09/06/16 15:20 Free T4 0.55 ng/dL (0.78-2.19) L 08/21/16 14:36 Thyroglobulin, Quant 2.3 ng/mL (2.8-40.9) L 08/24/16 06:03 TSH 3rd Generation 0.21 mIU/L (0.46-4.68) L 08/21/16 14:36 Urine Color Straw (YELLOW) 08/22/16 21:37 Urine Clarity Clear (Clear) 08/22/16 21:37 Urine pH 5.0 (5.0-8.0) 08/22/16 21:37 Ur Specific [place] 1.005 (1.003-1.030) 08/22/16 21:37 Urine Protein Negative mg/dL (NEGATIVE) 08/22/16 21:37 Urine Glucose (UA) Normal mg/dL (Normal) 08/22/16 21:37 Urine Ketones Negative mg/dL (NEGATIVE) 08/22/16 21:37 Urine Blood Negative (NEGATIVE) 08/22/16 21:37 Urine Nitrate Negative (NEGATIVE) 08/22/16 21:37 Urine Bilirubin Negative (NEGATIVE) 08/22/16 21:37 Urine Urobilinogen Normal mg/dL (0.2-1.0) 08/22/16 21:37 Ur Leukocyte Esterase Neg Esthela/uL (Negative) 08/22/16 21:37 Urine WBC (Auto) 11 /hpf (0-5) H 08/12/16 17:51 Urine RBC (Auto) 20 /hpf (0-3) H 08/12/16 17:51 Ur Squamous Epith Cells 2 /hpf (0-5) 08/22/16 21:37 Urine Bacteria Rare (<OCC) 08/22/16 21:37 Hyaline Casts 11-20 /lpf (0-2) H 08/12/16 17:51 IgE 300 kU/L (<ia=922) H 08/21/16 07:01 Thyroglobulin Antibody <1 IU/mL (< OR = 1) 08/24/16 06:03 B. pertussis IgG Ab 5 IU/mL 08/22/16 06:54 B. pertussis IgG (FHA) 101 IU/mL H 08/22/16 06:54 Influenza Typ A,B (EIA) Negative for flu a/b (NEGATIVE) 08/12/16 17:55 - Hospital Course Hospital Course: Admitrred this patient because of severe cough for 1 week. She was given a course of antibiotics as an outpatrient but coughing spells are getting worst.. so she went to the ER and was admitted. She was given Azitromuycin and Rocephin by IV Piggy back nebulizers and expectorant. patient continues to have severe coughing and therefore Dr. Ramirez the Boarding Mother was consulted. A sputum C/S was taken and came out E.Coli ESBL positive. DR. Estee Day the infectous disease custom decorating consultant came on the case. She was placed on Tygacil. Because the coighing spells are severe a B. pertussis test was obtained which came back positive . patient was placed on Merem and Azithromycin again. Cough slowly subsided and patient was discharged to see Dr. Ramirez and Dr. Estee Day in their offices. - Date & Time of H&P Date of H&P: 09/07/16 Time of H&P: 09:20 Discharge Exam - Head Exam Head Exam: NORMAL INSPECTION - Eye Exam Pupil Exam: PERRL - ENT Exam ENT Exam: Mucous Membranes Moist - Neck Exam Neck exam: Full Rom - Respiratory Exam Respiratory Exam: Clear to PA & Lateral, NORMAL BREATHING PATTERN - Cardiovascular Exam Cardiovascular Exam: +S1, +S2 - GI/Abdominal Exam GI & Abdominal Exam: Normal Bowel Sounds, Soft - Rectal Exam Rectal Exam: Deferred - Extremities Exam Extremities exam: full ROM, normal inspection - Back Exam Back exam: FULL ROM, NORMAL INSPECTION - Neurological Exam Neurological exam: Alert, CN II-XII Intact, Oriented x3, Reflexes Normal - Psychiatric Exam Psychiatric exam: Normal Affect, Normal Mood - Skin Skin Exam: Dry, Intact, Normal Color, Warm Discharge Plan - Discharge Medications Prescriptions: Valsartan/Hydrochlorothiazide [Valsartan and Hydrochlorothiazide 12.5 mg-80 ] 1 tab PO DAILY #90 - Follow Up Plan Condition: GOOD Disposition: HOME/ ROUTINE Instructions: Upper Respiratory Infection (ED)
== END 2016-09-07 10:00 | disposition home health service (06) | DRG 178 ==
LOC: C.ER 17:02 → C.9E 19:15 → C.3T 22:18
PROVIDERS: ADMIT Legal Medicine; ATTEND Legal Medicine
PROC: 02HV33Z Insertion of Infusion Device into Superior Vena Cava, Percutaneous Approach (ICD-10-PCS; principal; 2016-08-21)
PROC: B518ZZA Fluoroscopy of Superior Vena Cava, Guidance (ICD-10-PCS; 2016-08-21)
DX: J15.5 Pneumonia due to Escherichia coli (principal); I31.3 Pericardial effusion (noninflammatory); A37.01 Whooping cough due to Bordetella pertussis with pneumonia; J98.11 Atelectasis; I10 Essential (primary) hypertension; B96.5 Pseudomonas (aeruginosa) (mallei) (pseudomallei) as the cause of diseases classified elsewhere; E04.2 Nontoxic multinodular goiter; J06.9 Acute upper respiratory infection, unspecified; J32.0 Chronic maxillary sinusitis; J32.2 Chronic ethmoidal sinusitis; J40 Bronchitis, not specified as acute or chronic; K80.20 Calculus of gallbladder without cholecystitis without obstruction; F40.240 Claustrophobia; S00.83XA Contusion of other part of head, initial encounter; W19.XXXA Unspecified fall, initial encounter; Y92.231 Patient bathroom in hospital as the place of occurrence of the external cause; Z23 Encounter for immunization

== ENCOUNTER 2018-08-01 09:57 | Emergency (ER) | payer BC, MEDICAID, MEDICARE ==
[2018-08-01] MEDS ORDERED: Lidocaine 5% Patch TD STA (10:37)
[2018-08-01] MEDS ORDERED: Lidocaine 5% Patch TD ONE (10:43)
--- NOTE | 2018-08-01 10:50 | C.PDOC ---
History Of Present Illness 63 year old female with a history of hypertension (takes medications) presents to the emergency department with complaints of pain to the medial aspect of the right knee. Patient states that last night she closed her car door and struck her knee with the door. Patient states that she lost her balance, but did not fall, and was able to walk inside her house. Patient states that at 1AM, she went up to go to the bathroom and noticed the pain had gotten worse, and noticed swelling to the area. Time Seen by Provider: 08/01/18 10:01 Chief Complaint (Nursing): Lower Extremity Problem/Injury History Per: Patient History/Exam Limitations: no limitations Onset/Duration Of Symptoms: Days (1) Current Symptoms Are (Timing): Still Present - Knee Description Of Injury: Struck With Object (car door) Currently Unable To: Bear Weight Past Medical History Reviewed: Historical Data, Nursing Documentation, Vital Signs Vital Signs: Last Vital Signs Temp 97.9 F 08/01/18 10:01 Pulse 78 08/01/18 10:01 Resp 20 08/01/18 10:01 BP 199/97 H 08/01/18 10:01 Pulse Ox 97 08/01/18 10:01 Primary Care Provider: Florence Olsen - Medical History PMH: Bronchitis, Fractures, HTN Denies: Anxiety, Chronic Kidney Disease Surgical History: No Surg Hx - [facility] Procedures FLUOROSCOPY OF SUPERIOR VENA CAVA, GUIDANCE (08/12/16) INSERTION OF INFUSION DEV INTO SUP VENA CAVA, PERC APPROACH (08/12/16) Family History: States: No Known Family Hx - Social History Hx Tobacco Use: No Hx Alcohol Use: Yes Hx Substance Use: No - Immunization History Hx Tetanus Toxoid Vaccination: No Hx Influenza Vaccination: No Hx Pneumococcal Vaccination: No Review Of Systems Except As Marked, All Systems Reviewed And Found Negative. Constitutional: Negative for: Fever, Chills Cardiovascular: Negative for: Chest Pain Respiratory: Negative for: Cough, Shortness of Breath Gastrointestinal: Negative for: Nausea, Vomiting Musculoskeletal: Positive for: Leg Pain (right knee ) Physical Exam - Physical Exam Appears: Non-toxic, No Acute Distress Skin: Warm, Dry, No Ecchymosis (to medial aspect of the right knee) Head: Atraumatic, Normacephalic Eye(s): bilateral: Normal Inspection Neck: Normal, Supple Chest: Symmetrical Extremity: Tenderness (to the medial aspect of the right knee), Swelling (to the medial aspect of the right knee) Neurological/Psych: Oriented x3, Normal Speech, Normal Cognition ED Course And Treatment O2 Sat by Pulse Oximetry: 97 (RA) Pulse Ox Interpretation: Normal - Other Rad XR Right Knee X-Ray: Viewed By Me, Read By Radiologist Interpretation: IMPRESSION: Moderate suprapatellar joint effusion. Extensive degenerative changes and tricompartmental joint space narrowing. Medical Decision Making Medical Decision Making: Plan: XR Right Knee Lidoderm Patch Motrin 600mg PO Tylenol 975mg PO Disposition - Disposition Referrals: Florence Olsen MD [Staff Provider] - Disposition: HOME/ ROUTINE Disposition Time: 13:34 Condition: STABLE Prescriptions: Ibuprofen [Motrin] 600 mg PO TID #15 tab Instructions: Osteoarthritis Forms: General Discharge Instructions, [facility] (Lebanese), School Excuse, Work Excuse - POA Present On Arrival: None - Clinical Impression Clinical Impression: Arthritis, Joint pain, Contusion of right knee - Scribe Statement The provider has reviewed the documentation as recorded by the Scribe (Melvin Red) Provider Attestation: All medical record entries made by the Scribe were at my direction and personally dictated by me. I have reviewed the chart and agree that the record accurately reflects my personal performance of the history, physical exam, medical decision making, and the department course for this patient. I have also personally directed, reviewed, and agree with the discharge instructions and disposition.
[2018-08-01 11:46] VITALS: RESP 18
--- NOTE | 2018-08-01 12:31 | RAD ---
PROCEDURE: Right Knee Radiographs. Three views. HISTORY: trauma COMPARISON: Bilateral knee radiographs performed 03/14/14 FINDINGS: BONES: Osseous demineralization. Extensive osteophyte formation/ossific proliferation. No acute displaced fracture. JOINTS: No dislocation. Marked tricompartmental joint space narrowing. JOINT EFFUSION: Moderate suprapatellar joint effusion. OTHER FINDINGS: None. IMPRESSION: Moderate suprapatellar joint effusion. Extensive degenerative changes and tricompartmental joint space narrowing.
[2018-08-01 13:36] VITALS: BP 169/100; PULSE 74; TEMP 98.5
[2018-08-01 13:37] VITALS: O2SAT 97
== END 2018-08-01 14:28 | disposition home or self-care (01) ==
LOC: C.ER 09:57
DX: S80.01XA Contusion of right knee, initial encounter (principal); W22.8XXA Striking against or struck by other objects, initial encounter; M17.11 Unilateral primary osteoarthritis, right knee; M25.561 Pain in right knee